=== PATIENT | male | born 1965 | race Two or more races ===

== ENCOUNTER 2017-06-25 10:10 | Inpatient (IN) | payer OTHER ==
[2017-06-25 10:55] VITALS: BMI 25.8
--- NOTE | 2017-06-25 13:56 | HP ---
COWS - Scale Resting Pulse: 1= [place] 81-100 Sweatin=Flushed/Facial Moisture Restless Observation: 3= Extraneous Movement Pupil Size: 2= Moderately Dilated Bone or Joint Aches: 2= Severe Diffuse Aches Runny Nose/ Eye Tearin= Runny Nose/Eyes GI Upset > 30mins: 3= Vomiting/Diarrhea Tremor Observation: 2= Slight Tremor Visible Yawning Observation: 2= >3x During Session Anxiety or Irritability: 2=Irritable/Anxious Goose Flesh Skin: 0=Smooth Skin COWS Score: 21 CIWA Score - CIWA Score Nausea/Vomitin Muscle Tremors: 3 Anxiety: 3 Agitation: 3 Paroxysmal Sweats: 2 Orientation: 0-Oriented Tacttile Disturbances: 2-Mild Itch/Numbness/Burn Auditory Disturbances: 2-Mild Harshness/Frighten Visual Disturbances: 1-Very Mild Sensitivity Headache: 2-Mild CIWA-Ar Total Score: 21 Admission ROS BHS - HPI Chief Complaint: i need help to stop using heroin,alcohol and cocaine Allergies/Adverse Reactions: Allergies Allergy/AdvReac Type Severity Reaction Status Date / Time No Known Allergies Allergy Verified 06/25/17 10:54 History of Present Illness: this 51 years old male with heroin,alcohol and cocaine dependence seeking detox, last treatment in 12/26 did not recall the facility no seizure no significant period of sobriety nicotine dependence - Ebola screening Have you traveled outside of the country in the last 21 days: No (N) Have you had contact with anyone from an Ebola affected area: No Have you been sick,other than usual withdrawal symptoms: No Do you have a fever: No - Review of Systems Constitutional: Chills, Diaphoresis, Loss of Appetite, Night Sweats, Changes in sleep EENT: reports: Tearing, Nose Congestion Respiratory: reports: No Symptoms reported Cardiac: reports: No Symptoms Reported GI: reports: Diarrhea, Nausea, Vomiting, Abdominal cramping : reports: No Symptoms Reported Musculoskeletal: reports: Back Pain, Muscle Pain Integumentary: reports: Dryness Neuro: reports: Headache, Tremors Endocrine: reports: No Symptoms Reported Hematology: reports: No Symptoms Reported Psychiatric: reports: Anxious, Depressed Other Systems: Reviewed and Negative Patient History - Patient Medical History Hx Anemia: No Hx Asthma: No Hx Chronic Obstructive Pulmonary Disease (COPD): No Hx Cancer: Yes (hogkins lymphoma ) Hx Cardiac Disorders: No Hx Congestive Heart Failure: No Hx Hypertension: Yes Hx Hypercholesterolemia: No Hx Pacemaker: No HX Cerebrovascular Accident: No Hx Seizures: No Hx Dementia: No Hx Diabetes: No Hx Gastrointestinal Disorders: No Hx Liver Disease: No Hx Genitourinary Disorders: No Hx Sexually Transmitted Disorders: No Hx Renal Disease (ESRD): No Hx Thyroid Disease: No Hx Human Immunodeficiency Virus (HIV): No (neg 6 m ago ) Hx Hepatitis C: Yes Hx Depression: Yes Hx Suicide Attempt: No Hx Bipolar Disorder: Yes Hx Schizophrenia: No Other Medical History: hisatory of hodgkin's lymphoma - Patient Surgical History Past Surgical History: No Hx Neurologic Surgery: No Hx Cataract Extraction: No Hx Cardiac Surgery: No Hx Lung Surgery: No Hx Breast Surgery: No Hx Breast Biopsy: No Hx Abdominal Surgery: No Hx Appendectomy: No Hx Cholecystectomy: No Hx Genitourinary Surgery: No Hx Section: No Hx Orthopedic Surgery: No Anesthesia Reaction: No - PPD History Previous Implant?: Yes Documented Results: Negative w/o proof Implanted On Prior R Admission?: No PPD to be Administered?: Yes - Smoking Cessation Smoking history: Current every day smoker Have you smoked in the past 12 months: Yes Aproximately how many cigarettes per day: 10 Cigars Per Day: 0 Hx Chewing Tobacco Use: No Initiated information on smoking cessation: Yes 'Breaking Loose' booklet given: 06/25/17 - Substance & Tx. History Hx Alcohol Use: Yes Hx Substance Use: Yes Substance Use Type: Alcohol, Cocaine, Heroin Hx Substance Use Treatment: Yes (12/26 unknown facility) - Substances Abused Heroin Route: Injection Frequency: Daily Amount used: 10 bags Age of first use: 17 Date of Last Use: 06/24/17 Cocaine Route: Injection Frequency: Daily Amount used: $100 Age of first use: 17 Date of Last Use: 06/23/17 Alcohol-beer Route: Oral Frequency: Daily Amount used: 2-3 6 pks Age of first use: 17 Date of Last Use: 06/24/17 Family Disease History - Family Disease History Family History: Denies Admission Physical Exam BHS - Vital Signs Vital Signs: Vital Signs - 24 hr 06/25/17 10:45 Temperature 97.1 F L Pulse Rate 87 Respiratory 18 Rate Blood Pressure 141/92 - Physical General Appearance: Yes: Moderate Distress, Tremorous, Irritable HEENTM: Yes: Normal ENT Inspection, KELLEE, Pharynx Normal Respiratory: Yes: Lungs Clear, Normal Breath Sounds, No Respiratory Distress Neck: Yes: Supple Breast: Yes: Within Normal Limits Cardiology: Yes: Within Normal Limits, Regular Rhythm, Regular Rate, S1, S2 Abdominal: Yes: Within Normal Limits, Normal Bowel Sounds, Non Tender, Soft Genitourinary: Yes: Within Normal Limits Back: Yes: Muscle Spasm Musculoskeletal: Yes: full range of Motion, Back pain, Joint Stiffness, Muscle Pain Extremities: Yes: Within Normal Limits, Normal Range of Motion, Tremors Neurological: Yes: chef assistant II-XII NML intact, Alert, Motor Strength 5/5 Integumentary: Yes: Dry Lymphatic: Yes: Within Normal Limits - Diagnostic (1) Opioid dependence with withdrawal Current Visit: Yes Status: Acute (2) Alcohol dependence with uncomplicated withdrawal Current Visit: Yes Status: Acute (3) Cocaine dependence Current Visit: Yes Status: Acute (4) Nicotine dependence Current Visit: Yes Status: Acute (5) Bipolar disorder Current Visit: Yes Status: Acute (6) Hepatitis C Current Visit: Yes Status: Acute (7) History of Hodgkin's lymphoma Current Visit: Yes Status: Acute Cleared for Admission [facility] - Detox or Rehab [facility] Level of Care: Medically Managed Detox Regimen/Protocol: Methadone/Librium S Breath Alcohol Content Breath Alcohol Content: 0 Urine Drug Screen - Results Drug Screen Negative: No Urine Drug Screen Results: ERICA-Cocaine, OPI-Opiates, BZO-Benzodiazepines, MTD- Methadone
[2017-06-25] MEDS ORDERED: chlordiazePOXIDE HCL 25 MG CAPSULE PO ONE (13:59)
[2017-06-25] MEDS ORDERED: hydrOXYzine PAMOATE 25 MG CAPSULE (FP) PO PRN (14:09)
[2017-06-25] MEDS ORDERED: MENTHOL/PHENOL 1 EACH UD MM PRN (14:09)
[2017-06-25] MEDS ORDERED: MAGNESIUM HYDROX 2400MG/30ML ORAL SUSPENSION 30 ML CUP PO PRN (14:09)
[2017-06-25] MEDS ORDERED: chlordiazePOXIDE HCL 25 MG CAPSULE PO PRN (14:09)
[2017-06-25] MEDS ORDERED: IBUPROFEN 400 MG TABLET (FP) PO PRN (14:09)
[2017-06-25] MEDS ORDERED: MAG HYDROX/AL HYDROX/SIMETH 30 ML UNIT-DOSE CUP PO PRN (14:09)
[2017-06-25] MEDS ORDERED: LOPERAMIDE HCL 2 MG CAPSULE PO PRN (14:09)
[2017-06-25] MEDS ORDERED: guaiFENesin/D-METHORPHAN HB 10 ML UNIT-DOSE CUPS PO PRN (14:09)
[2017-06-25] MEDS ORDERED: P-EPHED 60MG/TRIPROLIDI 2.5MG TABLET PO PRN (14:09)
[2017-06-25] MEDS ORDERED: MAGNESIUM CITRATE 300 ML BOTTLE PO PRN (14:09)
[2017-06-25] MEDS ORDERED: ACETAMINOPHEN 325 MG TABLET (FP) PO PRN (14:09)
[2017-06-25] MEDS ORDERED: METHADONE HCL 10 MG TABLET (FOR DETOX USE ONLY) PO ONE ×2 (15:01→23:00)
[2017-06-25] MEDS: NICOTINE 21 MG/24 HOURS TOPICAL PATCH TD SCH (15:15)
[2017-06-25 16:45] LABS: URINE APPEARANCE SLCLOUDY; URINE BILIRUBIN NEGATIVE (NEGATIVE); URINE BLOOD NEGATIVE (NEGATIVE); URINE COLOR DKYELLOW; URINE GLUCOSE (UA) NEGATIVE (NEGATIVE); URINE KETONE NEGATIVE (NEGATIVE); URINE LEUK ESTERASE NEGATIVE (NEGATIVE); URINE NITRITE NEGATIVE (NEGATIVE); URINE PROTEIN NEGATIVE (NEGATIVE); URINE UROBILINOGEN 4.0 E.U/dl mg/dL (0.2-1.0)
[2017-06-25] MEDS: chlordiazePOXIDE HCL 25 MG CAPSULE PO SCH ×2 (18:12→22:33)
[2017-06-25] MEDS: THIAMINE HCL 100 MG TABLET (FP) PO SCH (22:33)
[2017-06-26] MEDS: chlordiazePOXIDE HCL 25 MG CAPSULE PO SCH ×3 (06:00→19:11)
[2017-06-26] MEDS ORDERED: METHADONE HCL 10 MG TABLET (FOR DETOX USE ONLY) PO SCH (10:00)
[2017-06-26 10:41] LABS: HEMATOCRIT 40.8 % (35.4-49); HEMOGLOBIN 13.1 GM/dL (11.7-16.9); MCH 28.3 pg (25.7-33.7); MCHC 32.1 g/dl (32.0-35.9); MEAN PLT VOLUME 11.7 fl (7.5-11.1); PLATELET COUNT 163 K/MM3 (134-434); RBC 4.63 M/mm3 (4.00-5.60); RDW 14.2 % (11.9-15.9); WHITE BLOOD COUNT 5.6 K/mm3 (4.0-10.0)
[2017-06-26] MEDS: PRENATAL VITAMINS W/ FOLIC ACID TABLET (FP) PO SCH (10:50)
[2017-06-26] MEDS: NICOTINE 21 MG/24 HOURS TOPICAL PATCH TD SCH (10:53)
[2017-06-26 11:04] LABS: ALBUMIN 3.6 g/dl (3.4-5.0); ANION GAP 10 (8-16); BILIRUBIN,TOTAL 0.6 mg/dL (0.2-1.0); BLOOD UREA NITROGEN 21 mg/dL (7-18); CALCIUM 9.2 mg/dL (8.5-10.1); CHLORIDE 105 mmol/L (98-107); CO2 25 mmol/L (21-32); CREATININE 1.1 mg/dL (0.7-1.3); GLUCOSE,RANDOM 128 mg/dL (74-106); POTASSIUM 4.9 mmol/L (3.5-5.1); SGOT/AST 45 U/L (15-37); SGPT/ALT 50 U/L (12-78); SODIUM 140 mmol/L (136-145); TOT PROT 7.5 g/dl (6.4-8.2)
[2017-06-26 11:05] LABS: ALK PHOS 91 U/L (45-117)
--- NOTE | 2017-06-26 11:25 | PN ---
[facility] CIWA - CIWA Score Nausea/Vomitin Muscle Tremors: 3 Anxiety: 3 Agitation: 2 Paroxysmal Sweats: 1-Minimal Palms Moist Orientation: 0-Oriented Tacttile Disturbances: 2-Mild Itch/Numbness/Burn Auditory Disturbances: 1-Very Mild Visual Disturbances: 0-None Headache: 2-Mild CIWA-Ar Total Score: 17 BHS COWS - Scale Resting Pulse: 0= [place] 80 or Below Sweatin= Chills/Flushing Restless Observation: 3= Extraneous Movement Pupil Size: 1= Pupils >than Normal Bone or Joint Aches: 2= Severe Diffuse Aches Runny Nose/ Eye Tearin= Runny Nose/Eyes GI Upset > 30mins: 2= Nausea/Diarrhea Tremor Observation of Outstretched Hands: 2= Slight Tremor Visible Yawning Observation: 1= 1-2x During Session Anxiety or Irritability: 2=Irritable/Anxious Goose Flesh Skin: 0=Smooth Skin COWS Score: 16 S Progress Note (SOAP) Subjective: alert,irritable,anxious,interrupted sleep,tremor,pain in the body and back Objective: 06/26/17 11:22 Vital Signs Temperature 98.1 F 06/26/17 09:56 Pulse Rate 77 06/26/17 09:56 Respiratory Rate 20 06/26/17 09:56 Blood Pressure 158/97 06/26/17 09:56 O2 Sat by Pulse Oximetry (%) ekg nsr,normal ecg 06/26/17 11:23 Laboratory Last Values WBC 5.6 K/mm3 (4.0-10.0) 06/26/17 08:00 RBC 4.63 M/mm3 (4.00-5.60) 06/26/17 08:00 Hgb 13.1 GM/dL (11.7-16.9) 06/26/17 08:00 Hct 40.8 % (35.4-49) 06/26/17 08:00 MCV 88.0 fl (80-96) 06/26/17 08:00 MCH 28.3 pg (25.7-33.7) 06/26/17 08:00 MCHC 32.1 g/dl (32.0-35.9) 06/26/17 08:00 RDW 14.2 % (11.9-15.9) 06/26/17 08:00 Plt Count 163 K/MM3 (134-434) 06/26/17 08:00 MPV 11.7 fl (7.5-11.1) H 06/26/17 08:00 Sodium 140 mmol/L (136-145) 06/26/17 08:00 Potassium 4.9 mmol/L (3.5-5.1) 06/26/17 08:00 Chloride 105 mmol/L (98-107) 06/26/17 08:00 Carbon Dioxide 25 mmol/L (21-32) 06/26/17 08:00 Anion Gap 10 (8-16) 06/26/17 08:00 BUN 21 mg/dL (7-18) H 06/26/17 08:00 Creatinine 1.1 mg/dL (0.7-1.3) 06/26/17 08:00 Creat Clearance w eGFR > 60 (>60) 06/26/17 08:00 Random Glucose 128 mg/dL (74-106) H 06/26/17 08:00 Calcium 9.2 mg/dL (8.5-10.1) 06/26/17 08:00 Total Bilirubin 0.6 mg/dL (0.2-1.0) 06/26/17 08:00 AST 45 U/L (15-37) H 06/26/17 08:00 ALT 50 U/L (12-78) 06/26/17 08:00 Alkaline Phosphatase 91 U/L (45-117) 06/26/17 08:00 Total Protein 7.5 g/dl (6.4-8.2) 06/26/17 08:00 Albumin 3.6 g/dl (3.4-5.0) 06/26/17 08:00 Urine Color Dkyellow 06/25/17 15:00 Urine Appearance Slcloudy 06/25/17 15:00 Urine pH 7.0 (5.0-8.0) 06/25/17 15:00 Ur Specific [place] 1.026 (1.001-1.035) 06/25/17 15:00 Urine Protein Negative (NEGATIVE) 06/25/17 15:00 Urine Glucose (UA) Negative (NEGATIVE) 06/25/17 15:00 Urine Ketones Negative (NEGATIVE) 06/25/17 15:00 Urine Blood Negative (NEGATIVE) 06/25/17 15:00 Urine Nitrite Negative (NEGATIVE) 06/25/17 15:00 Urine Bilirubin Negative (NEGATIVE) 06/25/17 15:00 Urine Urobilinogen 4.0 e.u/dl mg/dL (0.2-1.0) 06/25/17 15:00 Ur Leukocyte Esterase Negative (NEGATIVE) 06/25/17 15:00 HIV 1&2 Antibody Screen Negative 06/25/17 12:00 HIV P24 Antigen Negative 06/25/17 12:00 Assessment: 06/26/17 11:23 withdrawal symptom Plan: continue detox,initial glucose is 127,bgm monitoring daily
[2017-06-26] MEDS ORDERED: PNEUMOC 13-VAL CONJ-DIP CRM/PF 0.5 ML DISP.SYRIN IM ONE (12:00)
[2017-06-26] MEDS ORDERED: FLU VACCINE QUAD 60 MCG/0.5 ML (MDV 17-18) IM ONE ×2 (12:00→18:15)
[2017-06-26] MEDS ORDERED: PNEUMOCOCCAL 23 VACCINE 0.5 ML VIAL IM ONE ×2 (12:15→18:15)
--- NOTE | 2017-06-26 13:05 | CONSULT ---
[facility] Psychiatric Consult - Data Date of interview: 06/26/17 Admission source: [facility] Identifying data: Readmission to [facility] for this 51 y/o male seeking detox treatment on for alcohol,heroin and cocaine dependence.Patient is single,father of an " unknown " number of children, homeless,unemployed and supported on food stamps. Substance Abuse History: Confirmed by patient in this interview.See current [facility] report for details : Smoking history: Current every day smoker. Have you smoked in the past 12 months: Yes. Aproximately how many cigarettes per day: 10. Cigars Per Day: 0. Hx Chewing Tobacco Use: No. Initiated information on smoking cessation: Yes. 'Breaking Loose' booklet given: 06/25/17. - Substance & Tx. History. Hx Alcohol Use: Yes. Hx Substance Use: Yes. Substance Use Type : Alcohol, Cocaine, Heroin. Hx Substance Use Treatment: Yes (12/26 unknown facility). - Substances Abused. Heroin. Route: Injection. Frequency: Daily. Amount used: 10 bags. Age of first use: 17. Date of Last Use: . Cocaine. Route: Injection. Frequency: Daily. Amount used: $100. Age of first use: 17. Date of Last Use: 06/23/17. Alcohol-beer. Route: Oral. Frequency: Daily. Amount used: 2-3 6 pks. Age of first use: 17. Date of Last Use: 06/24/17 Medical History: Cleft lip.Otherwise no medical issues. Psychiatric History: Diagnosed with Bipolar Disorder and previously treated with seroquel + sertraline.Patient admits to a remote history (more than 15 years ago) of psychiatric hospitalization at [facility].Mr Sr states that he " used to " see a private psychiatrist in [facility] for medication management.Non-adherent to OPD care for months.No reported history of suicide attempts. Physical/Sexual Abuse/Trauma History: Patient denies. Additional Comment: Urine Drug Screen Results: ERICA-Cocaine, OPI-Opiates, BZO- Benzodiazepines, MTD-Methadone.Noted. Mental Status Exam - Mental Status Exam Alert and Oriented to: Time, Place, Person Cognitive Function: Good Patient Appearance: Unkempt, Disheveled (tall stature) Mood: Nervous, Anxious, Hopeful Affect: Appropriate, Normal Range Patient Behavior: Fatigued, Cooperative Speech Pattern: Clear, Appropriate Voice Loudness: Normal Thought Process: Goal Oriented Thought Disorder: Not Present Hallucinations: Denies Suicidal Ideation: Denies Homicidal Ideation: Denies Insight/Judgement: Poor Sleep: Well Appetite: Good Muscle strength/Tone: Normal Gait/Station: Normal Psychiatric Findings - Problem List ([place] 1, 2,3) (1) Opioid dependence with withdrawal Current Visit: Yes Status: Acute (2) Alcohol dependence with uncomplicated withdrawal Current Visit: Yes Status: Acute (3) Cocaine dependence Current Visit: Yes Status: Acute (4) Nicotine dependence Current Visit: Yes Status: Acute (5) Substance induced mood disorder Current Visit: Yes Status: Acute - Initial Treatment Plan Initial Treatment Plan: Psychoeducation.Detoxification.Observation.
[2017-06-27] MEDS: chlordiazePOXIDE HCL 25 MG CAPSULE PO SCH ×3 (00:10→11:30)
[2017-06-27] MEDS: THIAMINE HCL 100 MG TABLET (FP) PO SCH ×2 (00:10→23:06)
--- NOTE | 2017-06-27 09:28 | PN ---
[facility] CIWA - CIWA Score Nausea/Vomitin-Mild Nausea/No Vomiting Muscle Tremors: 3 Anxiety: 3 Agitation: 2 Paroxysmal Sweats: 2 Orientation: 0-Oriented Tacttile Disturbances: 0-None Auditory Disturbances: 0-None Visual Disturbances: 0-None Headache: 0-None Present CIWA-Ar Total Score: 11 S COWS - Scale Resting Pulse: 0= [place] 80 or Below Sweatin= Chills/Flushing Restless Observation: 1= Difficult to Sit Still Pupil Size: 0= Normal to Room Light Bone or Joint Aches: 2= Severe Diffuse Aches Runny Nose/ Eye Tearin= Nasal Congestion GI Upset > 30mins: 1= Stomach Cramp Tremor Observation of Outstretched Hands: 2= Slight Tremor Visible Yawning Observation: 1= 1-2x During Session Anxiety or Irritability: 2=Irritable/Anxious Goose Flesh Skin: 0=Smooth Skin COWS Score: 11 [facility] Progress Note (SOAP) Subjective: sweat treamor anxiety general body ache Objective: 06/27/17 09:28 Vital Signs Temperature 95.5 F L 06/27/17 06:00 Pulse Rate 69 06/27/17 06:00 Respiratory Rate 20 06/27/17 06:00 Blood Pressure 182/110 06/27/17 06:00 O2 Sat by Pulse Oximetry (%) Laboratory Last Values WBC 5.6 K/mm3 (4.0-10.0) 06/26/17 08:00 RBC 4.63 M/mm3 (4.00-5.60) 06/26/17 08:00 Hgb 13.1 GM/dL (11.7-16.9) 06/26/17 08:00 Hct 40.8 % (35.4-49) 06/26/17 08:00 MCV 88.0 fl (80-96) 06/26/17 08:00 MCH 28.3 pg (25.7-33.7) 06/26/17 08:00 MCHC 32.1 g/dl (32.0-35.9) 06/26/17 08:00 RDW 14.2 % (11.9-15.9) 06/26/17 08:00 Plt Count 163 K/MM3 (134-434) 06/26/17 08:00 MPV 11.7 fl (7.5-11.1) H 06/26/17 08:00 Sodium 140 mmol/L (136-145) 06/26/17 08:00 Potassium 4.9 mmol/L (3.5-5.1) 06/26/17 08:00 Chloride 105 mmol/L (98-107) 06/26/17 08:00 Carbon Dioxide 25 mmol/L (21-32) 06/26/17 08:00 Anion Gap 10 (8-16) 06/26/17 08:00 BUN 21 mg/dL (7-18) H 06/26/17 08:00 Creatinine 1.1 mg/dL (0.7-1.3) 06/26/17 08:00 Creat Clearance w eGFR > 60 (>60) 06/26/17 08:00 POC Glucometer 92 UNITS (80-120) 06/27/17 05:59 Random Glucose 128 mg/dL (74-106) H 06/26/17 08:00 Calcium 9.2 mg/dL (8.5-10.1) 06/26/17 08:00 Total Bilirubin 0.6 mg/dL (0.2-1.0) 06/26/17 08:00 AST 45 U/L (15-37) H 06/26/17 08:00 ALT 50 U/L (12-78) 06/26/17 08:00 Alkaline Phosphatase 91 U/L (45-117) 06/26/17 08:00 Total Protein 7.5 g/dl (6.4-8.2) 06/26/17 08:00 Albumin 3.6 g/dl (3.4-5.0) 06/26/17 08:00 Urine Color Dkyellow 06/25/17 15:00 Urine Appearance Slcloudy 06/25/17 15:00 Urine pH 7.0 (5.0-8.0) 06/25/17 15:00 Ur Specific [place] 1.026 (1.001-1.035) 06/25/17 15:00 Urine Protein Negative (NEGATIVE) 06/25/17 15:00 Urine Glucose (UA) Negative (NEGATIVE) 06/25/17 15:00 Urine Ketones Negative (NEGATIVE) 06/25/17 15:00 Urine Blood Negative (NEGATIVE) 06/25/17 15:00 Urine Nitrite Negative (NEGATIVE) 06/25/17 15:00 Urine Bilirubin Negative (NEGATIVE) 06/25/17 15:00 Urine Urobilinogen 4.0 e.u/dl mg/dL (0.2-1.0) 06/25/17 15:00 Ur Leukocyte Esterase Negative (NEGATIVE) 06/25/17 15:00 RPR Titer Nonreactive (NONREACTIVE) 06/26/17 08:00 HIV 1&2 Antibody Screen Negative 06/25/17 12:00 HIV P24 Antigen Negative 06/25/17 12:00 lab noted Assessment: 06/27/17 09:28 withdrawal sx Plan: continue detox
[2017-06-27] MEDS ORDERED: cloNIDine HCL 0.1 MG TABLET PO PRN (09:46)
[2017-06-27] MEDS: METHADONE HCL 5 MG TABLET (FOR DETOX USE ONLY) PO SCH (11:29)
[2017-06-27] MEDS: NICOTINE 21 MG/24 HOURS TOPICAL PATCH TD SCH (11:29)
[2017-06-27] MEDS: METHOCARBAMOL 500 MG TABLET PO SCH ×3 (11:30→23:09)
[2017-06-27] MEDS: PRENATAL VITAMINS W/ FOLIC ACID TABLET (FP) PO SCH (11:30)
[2017-06-27] MEDS: chlordiazePOXIDE 5 MG CAPSULE PO SCH ×2 (18:06→23:06)
[2017-06-27] MEDS ORDERED: cloNIDine HCL 0.1 MG TABLET PO ONE (18:23)
--- NOTE | 2017-06-27 18:23 | PN ---
BHS Progress Note Note: bp 170/100,withdrawal symptom,clonidine 0.1 mg po bid, bp monitoring
[2017-06-27] MEDS ORDERED: cloNIDine HCL 0.1 MG TABLET PO SCH (22:00)
[2017-06-28] MEDS ORDERED: cloNIDine HCL 0.1 MG TABLET PO ONE (00:51)
[2017-06-28] MEDS: METHOCARBAMOL 500 MG TABLET PO SCH ×4 (06:48→23:42)
[2017-06-28] MEDS: chlordiazePOXIDE 5 MG CAPSULE PO SCH ×2 (06:48→10:41)
[2017-06-28] MEDS: cloNIDine HCL 0.1 MG TABLET PO SCH ×3 (07:46→23:40)
--- NOTE | 2017-06-28 10:12 | PN ---
BHS Progress Note (SOAP) Subjective: nausea, sweats, interrupted sleep, anxeityk, tremors Objective: 06/28/17 10:11 Vital Signs - 8 hr 06/28/17 06/28/17 06/28/17 03:30 06:17 08:11 Temperature 97.6 F Pulse Rate 50 L 67 Respiratory 18 18 Rate Blood Pressure 173/100 Laboratory Tests 06/25/17 06/25/17 06/26/17 12:00 15:00 08:00 WBC 5.6 RBC 4.63 Hgb 13.1 Hct 40.8 MCV 88.0 MCH 28.3 MCHC 32.1 RDW 14.2 Plt Count 163 MPV 11.7 H Sodium Potassium Chloride Carbon Dioxide Anion Gap BUN Creatinine Creat Clearance w eGFR POC Glucometer Random Glucose Calcium Total Bilirubin AST ALT Alkaline Phosphatase Total Protein Albumin Urine Color Dkyellow Urine Appearance Slcloudy Urine pH 7.0 Ur Specific [place] 1.026 Urine Protein Negative Urine Glucose (UA) Negative Urine Ketones Negative Urine Blood Negative Urine Nitrite Negative Urine Bilirubin Negative Urine Urobilinogen 4.0 e.u/dl Ur Leukocyte Esterase Negative RPR Titer HIV 1&2 Antibody Screen Negative HIV P24 Antigen Negative 06/26/17 06/26/17 06/27/17 08:00 08:00 05:59 WBC RBC Hgb Hct MCV MCH MCHC RDW Plt Count MPV Sodium 140 Potassium 4.9 Chloride 105 Carbon Dioxide 25 Anion Gap 10 BUN 21 H Creatinine 1.1 Creat Clearance w eGFR > 60 POC Glucometer 92 Random Glucose 128 H Calcium 9.2 Total Bilirubin 0.6 AST 45 H ALT 50 Alkaline Phosphatase 91 Total Protein 7.5 Albumin 3.6 Urine Color Urine Appearance Urine pH Ur Specific [place] Urine Protein Urine Glucose (UA) Urine Ketones Urine Blood Urine Nitrite Urine Bilirubin Urine Urobilinogen Ur Leukocyte Esterase RPR Titer Nonreactive HIV 1&2 Antibody Screen HIV P24 Antigen 06/28/17 06:21 WBC RBC Hgb Hct MCV MCH MCHC RDW Plt Count MPV Sodium Potassium Chloride Carbon Dioxide Anion Gap BUN Creatinine Creat Clearance w eGFR POC Glucometer 107 Random Glucose Calcium Total Bilirubin AST ALT Alkaline Phosphatase Total Protein Albumin Urine Color Urine Appearance Urine pH Ur Specific [place] Urine Protein Urine Glucose (UA) Urine Ketones Urine Blood Urine Nitrite Urine Bilirubin Urine Urobilinogen Ur Leukocyte Esterase RPR Titer HIV 1&2 Antibody Screen HIV P24 Antigen Assessment: 06/28/17 10:12 withdrawal sx, hypertension, cont detox, fluids, control bp
[2017-06-28] MEDS: METHADONE HCL 5 MG TABLET (FOR DETOX USE ONLY) PO SCH (10:41)
[2017-06-28] MEDS: NICOTINE 21 MG/24 HOURS TOPICAL PATCH TD SCH (10:42)
[2017-06-28] MEDS: PRENATAL VITAMINS W/ FOLIC ACID TABLET (FP) PO SCH (10:42)
[2017-06-28] MEDS ORDERED: amLODIPine BESYLATE 5 MG TABLET (FP) PO SCH (10:51)
[2017-06-28] MEDS ORDERED: chlordiazePOXIDE HCL 25 MG CAPSULE PO ONE (13:00)
[2017-06-28] MEDS: chlordiazePOXIDE HCL 10 MG CAPSULE PO SCH ×2 (17:39→23:40)
[2017-06-28] MEDS: THIAMINE HCL 100 MG TABLET (FP) PO SCH (23:42)
--- NOTE | 2017-06-29 01:58 | EKG ---
Test Reason : Blood Pressure : / mmHG Vent. Rate : 072 BPM Atrial Rate : 072 BPM P-R Int : 138 ms QRS Dur : 098 ms QT Int : 388 ms P-R-T Axes : -05 058 032 degrees QTc Int : 424 ms NORMAL SINUS RHYTHM NORMAL ECG NO PREVIOUS ECGS AVAILABLE Confirmed by DEXTER PIERCE MD ([id number]) on 06/29/2017 1:57:52 AM Referred By: Confirmed By:DEXTER PIERCE MD
[2017-06-29] MEDS: chlordiazePOXIDE HCL 10 MG CAPSULE PO SCH (06:01)
[2017-06-29] MEDS: cloNIDine HCL 0.1 MG TABLET PO SCH (06:01)
[2017-06-29] MEDS: METHOCARBAMOL 500 MG TABLET PO SCH (06:02)
--- NOTE | 2017-06-29 09:29 | DS ---
[facility] Detox Discharge Summary Admission Date: 06/25/17 - History Present History: Alcohol Dependence, Cocaine Dependence, Opioid Dependence - Physical Exam Results Vital Signs: Vital Signs Temperature 97.2 F L 06/29/17 07:22 Pulse Rate 54 L 06/29/17 07:22 Respiratory Rate 16 06/29/17 07:22 Blood Pressure 145/83 06/29/17 07:22 O2 Sat by Pulse Oximetry (%) - Medication Discharge Medications: Ambulatory Orders Unobtainable [Unobtainable] 09/03/15 - AMA Did Patient Leave Against Medical Advice: Yes (I want to go home)
[2017-06-29] MEDS ORDERED: METHADONE HCL 10 MG TABLET (FOR DETOX USE ONLY) PO SCH (10:00)
[2017-06-29 10:23] VITALS: BP 118/57; PULSE 75; TEMP 96.3
[2017-06-30] MEDS ORDERED: METHADONE HCL 5 MG TABLET (FOR DETOX USE ONLY) PO SCH (06:00)
== END 2017-06-29 09:41 | disposition left against medical advice (07) | DRG 770 ==
LOC: YASAS 10:10 → Y6N 13:48
PROVIDERS: ADMIT Internal Medicine; ATTEND Internal Medicine
PROC: HZ2ZZZZ Detoxification Services for Substance Abuse Treatment (ICD-10-PCS; principal; 2017-06-25)
DX: F11.23 Opioid dependence with withdrawal (principal); F10.230 Alcohol dependence with withdrawal, uncomplicated; F14.20 Cocaine dependence, uncomplicated; F17.210 Nicotine dependence, cigarettes, uncomplicated; F31.9 Bipolar disorder, unspecified; F19.24 Other psychoactive substance dependence with psychoactive substance-induced mood disorder; I10 Essential (primary) hypertension; B18.2 Chronic viral hepatitis C; Z85.71 Personal history of Hodgkin lymphoma; Z59.0 Homelessness
CPT/HCPCS: 36415; 80053; 81003; 85027; 86593; 87389; 90688; 90732; 93005; 93010; G0008; G0009

== ENCOUNTER 2017-12-02 22:51 | Emergency (ER) | payer OTHER ==
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
[2017-12-02] MEDS ORDERED: hydrALAZINE HCL 20 MG/ML VIAL IVPUSH ONE (23:59)
[2017-12-03 00:03] VITALS: BMI 24.3
[2017-12-03] MEDS ORDERED: hydrALAZINE HCL 20 MG/ML VIAL ONE ×3 (00:16→04:48)
[2017-12-03 00:21] LABS: BASO % 0.8 % (0-2.0); EOS % 2.7 % (0-4.5); HEMATOCRIT 42.3 % (35.4-49); HEMOGLOBIN 14.1 GM/dL (11.7-16.9); LYMPH % 27.5 % (8-40); MCH 29.1 pg (25.7-33.7); MCHC 33.3 g/dl (32.0-35.9); MEAN CELL VOLUME 87.4 fl (80-96); MEAN PLT VOLUME 10.6 fl (7.5-11.1); MONO % 7.6 % (3.8-10.2); NEUT % 61.4 % (42.8-82.8); PLATELET COUNT 175 K/MM3 (134-434); RBC 4.84 M/mm3 (4.00-5.60); WHITE BLOOD COUNT 5.1 K/mm3 (4.0-10.0)
[2017-12-03] MEDS ORDERED: FLUORESCEIN NA 1 EA STRIP OS ONE (00:38)
[2017-12-03 00:47] LABS: SALICYLATE < 1.700 mg/dL
[2017-12-03 00:51] LABS: ALBUMIN 3.8 g/dl (3.4-5.0); ANION GAP 10 (8-16); BILIRUBIN,TOTAL 0.6 mg/dL (0.2-1.0); BLOOD UREA NITROGEN 13 mg/dL (7-18); CALCIUM 9.2 mg/dL (8.5-10.1); CHLORIDE 103 mmol/L (98-107); CO2 26 mmol/L (21-32); CREATININE 0.9 mg/dL (0.7-1.3); GLUCOSE,RANDOM 83 mg/dL (74-106); MAGNESIUM 2.1 mg/dL (1.8-2.4); POTASSIUM 3.8 mmol/L (3.5-5.1); SGOT/AST 39 U/L (15-37); SGPT/ALT 35 U/L (12-78); SODIUM 139 mmol/L (136-145); TOT PROT 8.3 g/dl (6.4-8.2)
[2017-12-03 00:54] LABS: ALK PHOS 100 U/L (45-117)
[2017-12-03 01:06] LABS: ACETAMINOPHEN <2.0 ug/mL
[2017-12-03] MEDS ORDERED: TETRACAINE 0.5% HCL 0.6ML DROPPER.BOTTLE OS ONE (01:15)
[2017-12-03] MEDS ORDERED: TETRACAINE 0.5% OPHTH SOLN 2 ML BOTTLE ONE (01:22)
[2017-12-03] MEDS ORDERED: hydrALAZINE HCL 20 MG/ML VIAL IVPUSH ONE ×2 (02:24→04:47)
--- NOTE | 2017-12-03 06:01 | PDOC ---
*Physical Exam - Vital Signs Last Vital Signs Temp Pulse Resp BP Pulse Ox 97.7 F 71 18 157/88 97 12/02/17 23:45 12/03/17 00:01 12/03/17 00:01 12/03/17 05:19 12/03/17 00:01 ED Treatment Course - LABORATORY CBC & Chemistry Diagram: 12/03/17 00:07 12/03/17 00:07 - ADDITIONAL ORDERS Additional order review: Laboratory Results 12/03/17 12/03/17 00:07 00:07 Sodium 139 Potassium 3.8 D Chloride 103 Carbon Dioxide 26 Anion Gap 10 BUN 13 D Creatinine 0.9 Creat Clearance w eGFR > 60 Random Glucose 83 D Calcium 9.2 Magnesium 2.1 Total Bilirubin 0.6 AST 39 H ALT 35 D Alkaline Phosphatase 100 Creatine Kinase 175 Creatine Kinase Index 2.2 CK-MB (CK-2) 3.990 H Troponin I < 0.02 Total Protein 8.3 H Albumin 3.8 Salicylates < 1.700 Acetaminophen <2.0 Alcohol, Quantitative < 5.0 12/03/17 00:07 RBC 4.84 MCV 87.4 MCHC 33.3 RDW 14.0 MPV 10.6 Neutrophils % 61.4 Lymphocytes % 27.5 Monocytes % 7.6 Eosinophils % 2.7 Basophils % 0.8 - Medications Given in the ED: ED Medications Discontinued Medications Generic Name Dose Route Start Last Admin Trade Name Darielq PRN Reason Stop Dose Admin Fluorescein Sodium 1 ea 12/03/17 00:38 12/03/17 01:52 Fluorets - OS 12/03/17 00:39 Not Given ONCE ONE Hydralazine HCl 10 mg 12/02/17 23:59 12/03/17 00:10 Apresoline Injection - IVPUSH 12/03/17 00:00 10 mg ONCE ONE Administration Hydralazine HCl 10 mg 12/03/17 02:24 12/03/17 02:31 Apresoline Injection - IVPUSH 12/03/17 02:25 10 mg ONCE ONE Administration Hydralazine HCl 10 mg 12/03/17 04:47 12/03/17 04:48 Apresoline Injection - IVPUSH 12/03/17 04:48 10 mg ONCE ONE Administration Lorazepam 1 mg 12/03/17 00:44 12/03/17 00:50 Ativan Injection - IVPUSH 12/03/17 00:45 1 mg ONCE ONE Administration Tetracaine HCl 1 drop 12/03/17 01:15 12/03/17 01:34 Tetravisc 0.5% Eye Drops - OS 12/03/17 01:16 1 drop ONCE ONE Administration Medical Decision Making - Medical Decision Making 12/03/17 06:06 Pt wants to go to [facility] for Drug and alcohol detox. BP improved. Attempted to call for pt acceptance. No response at this time. *DC/Admit/Observation/Transfer Diagnosis at time of Disposition: Cocaine dependence, Opiate addiction, Pain, eye, left, Uncontrolled hypertension - Discharge Dispostion Condition at time of disposition: Stable - Referrals Referrals: [facility], [facility] [Other] (An appointment was made for you at 9:30a) Stan Jacobsen MD [Staff Physician] - - Patient Instructions - Post Discharge Activity
[2017-12-03 06:11] LABS: URINE APPEARANCE CLEAR; URINE BILIRUBIN NEGATIVE (<2.0 mg/dL); URINE COLOR YELLOW; URINE GLUCOSE (UA) NEGATIVE (NEGATIVE); URINE KETONE TRACE (NEGATIVE); URINE LEUK ESTERASE NEGATIVE (NEGATIVE); URINE NITRITE NEGATIVE (NEGATIVE); URINE PROTEIN NEGATIVE (NEGATIVE)
[2017-12-03 06:20] LABS: METHADONE, UR NEGATIVE ng/ml (CUTOFF=300); PHENCYCLIDINE,URINE NEGATIVE ng/ml (CUTOFF=25); URINE AMPHETAMINES NEGATIVE ng/ml (CUTOFF=500); URINE BARBITURATES NEGATIVE ng/ml (CUTOFF=200); URINE BENZODIAZEPINES NEGATIVE ng/ml (CUTOFF=200)
[2017-12-03 06:21] LABS: COCAINE, UR POSITIVE ng/ml (CUTOFF=300)
[2017-12-03 06:22] LABS: OPIATES, URI POSITIVE ng/ml (CUTOFF=300)
--- NOTE | 2017-12-03 08:51 | PDOC ---
*Physical Exam - Vital Signs Last Vital Signs Temp Pulse Resp BP Pulse Ox 98 F 90 18 151/96 98 12/03/17 07:05 12/03/17 07:05 12/03/17 07:05 12/03/17 07:05 12/03/17 07:05 - Physical Exam Comments: 12/03/17 08:47 "GENERAL: Awake, alert, and fully oriented, in no acute distress. HEAD: No signs of trauma EYES: PERRLA, EOMI, sclera anicteric, conjunctiva clear ENT: Auricles normal inspection, hearing grossly normal, nares patent, oropharynx clear without exudates. Moist mucosa NECK: Nontender, no stepoffs, Normal ROM, supple, no lymphadenopathy, JVD, or masses LUNGS: Breath sounds equal, clear to auscultation bilaterally. No wheezes, and no crackles HEART: Regular rate and rhythm, normal S1 and S2, no murmurs, rubs or gallops ABDOMEN: Soft, nontender, normoactive bowel sounds. No guarding, no rebound. No masses EXTREMITIES: Normal range of motion, no edema. No clubbing or cyanosis. No cords, erythema, or tenderness NEUROLOGICAL: Cranial nerves II through XII intact. 5/5 strength and sensation in all extremities, Normal speech, normal gait, normal cerebellar function SKIN: Warm, Dry, normal turgor, no rashes or lesions noted. " ED Treatment Course - LABORATORY CBC & Chemistry Diagram: 12/03/17 00:07 12/03/17 00:07 - ADDITIONAL ORDERS Additional order review: Laboratory Results 12/03/17 12/03/17 12/03/17 05:57 05:57 00:07 Sodium Potassium Chloride Carbon Dioxide Anion Gap BUN Creatinine Creat Clearance w eGFR Random Glucose Calcium Magnesium Total Bilirubin AST ALT Alkaline Phosphatase Creatine Kinase Creatine Kinase Index CK-MB (CK-2) Troponin I Total Protein Albumin Urine Color Yellow Urine Appearance Clear Urine pH 8.0 Ur Specific [place] 1.017 Urine Protein Negative Urine Glucose (UA) Negative Urine Ketones Trace H Urine Blood Negative Urine Nitrite Negative Urine Bilirubin Negative Urine Urobilinogen 2.0 Ur Leukocyte Esterase Negative Salicylates < 1.700 Opiates Screen Positive Methadone Screen Negative Acetaminophen <2.0 Barbiturate Screen Negative Phencyclidine Screen Negative Ur Amphetamines Screen Negative MDMA (Ecstasy) Screen Negative Benzodiazepines Screen Negative Cocaine Screen Positive U Marijuana (THC) Screen Positive Alcohol, Quantitative < 5.0 12/03/17 00:07 Sodium 139 Potassium 3.8 D Chloride 103 Carbon Dioxide 26 Anion Gap 10 BUN 13 D Creatinine 0.9 Creat Clearance w eGFR > 60 Random Glucose 83 D Calcium 9.2 Magnesium 2.1 Total Bilirubin 0.6 AST 39 H ALT 35 D Alkaline Phosphatase 100 Creatine Kinase 175 Creatine Kinase Index 2.2 CK-MB (CK-2) 3.990 H Troponin I < 0.02 Total Protein 8.3 H Albumin 3.8 Urine Color Urine Appearance Urine pH Ur Specific [place] Urine Protein Urine Glucose (UA) Urine Ketones Urine Blood Urine Nitrite Urine Bilirubin Urine Urobilinogen Ur Leukocyte Esterase Salicylates Opiates Screen Methadone Screen Acetaminophen Barbiturate Screen Phencyclidine Screen Ur Amphetamines Screen MDMA (Ecstasy) Screen Benzodiazepines Screen Cocaine Screen U Marijuana (THC) Screen Alcohol, Quantitative 12/03/17 00:07 RBC 4.84 MCV 87.4 MCHC 33.3 RDW 14.0 MPV 10.6 Neutrophils % 61.4 Lymphocytes % 27.5 Monocytes % 7.6 Eosinophils % 2.7 Basophils % 0.8 - Medications Given in the ED: ED Medications Discontinued Medications Generic Name Dose Route Start Last Admin Trade Name Freq PRN Reason Stop Dose Admin Fluorescein Sodium 1 ea 12/03/17 00:38 12/03/17 01:52 Fluorets - OS 12/03/17 00:39 Not Given ONCE ONE Hydralazine HCl 10 mg 12/02/17 23:59 12/03/17 00:10 Apresoline Injection - IVPUSH 12/03/17 00:00 10 mg ONCE ONE Administration Hydralazine HCl 10 mg 12/03/17 02:24 12/03/17 02:31 Apresoline Injection - IVPUSH 12/03/17 02:25 10 mg ONCE ONE Administration Hydralazine HCl 10 mg 12/03/17 04:47 12/03/17 04:48 Apresoline Injection - IVPUSH 12/03/17 04:48 10 mg ONCE ONE Administration Lorazepam 1 mg 12/03/17 00:44 12/03/17 00:50 Ativan Injection - IVPUSH 12/03/17 00:45 1 mg ONCE ONE Administration Tetracaine HCl 1 drop 12/03/17 01:15 12/03/17 01:34 Tetravisc 0.5% Eye Drops - OS 12/03/17 01:16 1 drop ONCE ONE Administration Medical Decision Making - Medical Decision Making 12/03/17 08:47 51 M with h/o PSA presenting to [facility] for detox, sent to ED for HTN. Pt cleared last night but unable to be transferred to [facility] because no one picked up the phone. - Spoke with [facility], pt accepted by Dr. Jacobsen Pt is well appearing, with normal vitals. Clinically stable for DC at this time. I discussed the physical exam findings, ancillary test results and final diagnoses with the patient. I answered all of the patient's questions. The patient was satisfied with the care received and felt comfortable with the discharge plan and treatment plan. The patient agrees to follow up with the primary care physician within 24-72 hours. *DC/Admit/Observation/Transfer Diagnosis at time of Disposition: Cocaine dependence, Opiate addiction, Pain, eye, left, Uncontrolled hypertension - Discharge Dispostion Condition at time of disposition: Stable - Referrals Referrals: Sarath, [facility] [Other] (An appointment was made for you at 9:30a) Stan Jacobsen MD [Staff Physician] - - Patient Instructions Printed Discharge Instructions: DI for High Blood Pressure Additional Instructions: Your blood pressure was very high today, possibly due to drug use. Follow up with your primary doctor to have your blood pressure re-checked. Uncontrolled blood pressure can lead to severe heart or kidney disease, disability, or even . - Post Discharge Activity - Attestations Physician Attestion: 12/03/17 08:51 I, Dr. Vinay Adler MD, attest that this document has been prepared under my direction and personally reviewed by me in its entirety. I further attest, that it accurately reflects all work, treatment, procedures and medical decision -making performed by me.
[2017-12-03 09:28] VITALS: BP 145/91; PULSE 87; TEMP 98.1
== END 2017-12-03 09:27 | disposition home or self-care (01) ==
LOC: JER 22:51
PROC: 3E033GC Introduction of Other Therapeutic Substance into Peripheral Vein, Percutaneous Approach (ICD-10-PCS; principal; 2017-12-02)
PROC: 3E033NZ Introduction of Analgesics, Hypnotics, Sedatives into Peripheral Vein, Percutaneous Approach (ICD-10-PCS; 2017-12-02)
PROC: 3E033GC Introduction of Other Therapeutic Substance into Peripheral Vein, Percutaneous Approach (ICD-10-PCS; 2017-12-02)
PROC: 3E033GC Introduction of Other Therapeutic Substance into Peripheral Vein, Percutaneous Approach (ICD-10-PCS; 2017-12-02)
DX: I10 Essential (primary) hypertension (principal); F17.210 Nicotine dependence, cigarettes, uncomplicated; F10.10 Alcohol abuse, uncomplicated; F11.20 Opioid dependence, uncomplicated; F14.20 Cocaine dependence, uncomplicated; Z59.0 Homelessness; Y90.0 Blood alcohol level of less than 20 mg/100 ml
CPT/HCPCS: 36415; 70450-TC; 70486-TC; 71045-TC-FY; 71250-TC; 80053; 80307; 81003; 82550; 82553; 83735; 84484; 85025; 99283-25

== ENCOUNTER 2017-12-03 09:59 | Inpatient (IN) | payer OTHER ==
[2017-12-03 10:59] VITALS: BMI 24.2
--- NOTE | 2017-12-03 11:18 | HP ---
COWS - Scale Resting Pulse: 1= MN 81-100 Sweatin= Chills/Flushing Restless Observation: 1= Difficult to Sit Still Pupil Size: 1= Pupils >than Normal Bone or Joint Aches: 1= Mild Discomfort Runny Nose/ Eye Tearin= Runny Nose/Eyes GI Upset > 30mins: 2= Nausea/Diarrhea Tremor Observation: 1= Tremor [place], Not Seen Yawning Observation: 1= 1-2x During Session Anxiety or Irritability: 2=Irritable/Anxious Goose Flesh Skin: 0=Smooth Skin COWS Score: 13 CIWA Score - CIWA Score Nausea/Vomitin Muscle Tremors: 2 Anxiety: 2 Agitation: 3 Paroxysmal Sweats: 1-Minimal Palms Moist Orientation: 1-Uncertain about Date Tacttile Disturbances: 0-None Auditory Disturbances: 0-None Visual Disturbances: 0-None Headache: 1-Very Mild CIWA-Ar Total Score: 12 Admission [facility] Chief Complaint: Heroin/ETOH withdrawal symptoms. Allergies/Adverse Reactions: Allergies Allergy/AdvReac Type Severity Reaction Status Date / Time No Known Allergies Allergy Verified 12/03/17 10:04 History of Present Illness: Patient presents with ETOH withdrawal symptoms. Exam Limitations: Intoxication, Altered Mental Status - Ebola screening Have you traveled outside of the country in the last 21 days: No Have you had contact with anyone from an Ebola affected area: No Have you been sick,other than usual withdrawal symptoms: No Do you have a fever: No - Review of Systems Constitutional: Chills, Night Sweats, Changes in sleep, Unexplained wgt Loss EENT: reports: Tearing, Nose Congestion Respiratory: reports: No Symptoms reported Cardiac: reports: No Symptoms Reported GI: reports: Diarrhea, Nausea, Poor Fluid Intake, Abdominal cramping : reports: No Symptoms Reported Musculoskeletal: reports: Back Pain, Muscle Pain Integumentary: reports: Sweating Neuro: reports: Tremors Endocrine: reports: Unexplained Weight Loss Hematology: reports: Anemia (dddd) Psychiatric: reports: Agitated, Anxious, Depressed Patient History - Patient Medical History Hx Anemia: No Hx Asthma: No Hx Chronic Obstructive Pulmonary Disease (COPD): No Hx Cancer: Yes (hogkins lymphoma ) Hx Cardiac Disorders: No Hx Congestive Heart Failure: No Hx Hypertension: Yes (noncompliant with medication) Hx Hypercholesterolemia: No Hx Pacemaker: No HX Cerebrovascular Accident: No Hx Seizures: No Hx Dementia: No Hx Diabetes: No Hx Gastrointestinal Disorders: No Hx Liver Disease: No Hx Genitourinary Disorders: No Hx Sexually Transmitted Disorders: No Hx Renal Disease (ESRD): No Hx Thyroid Disease: No Hx Human Immunodeficiency Virus (HIV): No (neg 6 m ago ) Hx Hepatitis C: Yes Hx Depression: Yes Hx Suicide Attempt: No Hx Bipolar Disorder: Yes Hx Schizophrenia: No - Patient Surgical History Past Surgical History: No Hx Neurologic Surgery: No Hx Cataract Extraction: No Hx Cardiac Surgery: No Hx Lung Surgery: No Hx Breast Surgery: No Hx Breast Biopsy: No Hx Abdominal Surgery: No Hx Appendectomy: No Hx Cholecystectomy: No Hx Genitourinary Surgery: No Hx Orthopedic Surgery: No Anesthesia Reaction: No - PPD History Previous Implant?: Yes Documented Results: Negative w/proof Implanted On Prior R Admission?: Yes Date: 06/27/17 Results: 0 mm PPD to be Administered?: No - Smoking Cessation Smoking history: Current every day smoker Have you smoked in the past 12 months: Yes Aproximately how many cigarettes per day: 10 Cigars Per Day: 0 Hx Chewing Tobacco Use: No Initiated information on smoking cessation: Yes 'Breaking Loose' booklet given: 12/03/17 - Substance & Tx. History Hx Alcohol Use: Yes Hx Substance Use: Yes Substance Use Type: Alcohol, Cocaine, Heroin Hx Substance Use Treatment: No - Substances Abused Heroin Route: Inhalation Frequency: Daily Amount used: 8 bags Age of first use: 17 Date of Last Use: 12/02/17 Cocaine Route: Injection Frequency: Daily Amount used: $100 Age of first use: 17 Date of Last Use: 12/02/17 Alcohol-wine Route: Oral Frequency: Daily Amount used: 3 pts. Age of first use: 17 Date of Last Use: 12/02/17 Family Disease History - Family Disease History Family History: Unable to Obtain Admission Physical Exam [facility] - Vital Signs Vital Signs: Vital Signs - 24 hr 12/03/17 10:58 Temperature 98.3 F Pulse Rate 101 H Respiratory 20 Rate Blood Pressure 167/102 - Physical General Appearance: Yes: Disheveled, Thin, Tremorous, Irritable, Sweating, Anxious HEENTM: Yes: EOMI, Hearing grossly Normal, Normocephalic, KELLEE, Pharynx Normal, Nasal Congestion Respiratory: Yes: Chest Non-Tender, Lungs Clear, Normal Breath Sounds, No Respiratory Distress, No Accessory Muscle Use Neck: Yes: No masses,lesions,Nodules, Supple, Trachea in good position Breast: Yes: Breast Exam Deferred Cardiology: Yes: Regular Rhythm, Regular Rate, S1, S2 Abdominal: Yes: Normal Bowel Sounds, Non Tender, Flat, Soft Genitourinary: Yes: Within Normal Limits Back: Yes: Normal Inspection Musculoskeletal: Yes: full range of Motion, Back pain, Muscle Pain Extremities: Yes: Normal Inspection, Normal Range of Motion, Tremors Neurological: Yes: business office assistant II-XII NML intact, Fully Oriented, Disoriented, Depressed Affect Integumentary: Yes: Normal Color, Warm, Moist, Track [place] Lymphatic: Yes: Within Normal Limits Cleared for Admission S - Detox or Rehab [facility] Level of Care: Medically Managed Detox Regimen/Protocol: Methadone/Librium S Breath Alcohol Content Breath Alcohol Content: 0
[2017-12-03] MEDS ORDERED: NICOTINE POLACRILEX 2 MG GUM BUC PRN (11:41)
[2017-12-03] MEDS ORDERED: MENTHOL/PHENOL 1 EACH UD MM PRN (11:41)
[2017-12-03] MEDS ORDERED: hydrOXYzine PAMOATE 50 MG CAPSULE (FP) PO PRN (11:41)
[2017-12-03] MEDS ORDERED: ACETAMINOPHEN 325 MG TABLET (FP) PO PRN (11:41)
[2017-12-03] MEDS ORDERED: IBUPROFEN 400 MG TABLET (FP) PO PRN (11:41)
[2017-12-03] MEDS ORDERED: MAG HYDROX/AL HYDROX/SIMETH 30 ML UNIT-DOSE CUP PO PRN (11:41)
[2017-12-03] MEDS ORDERED: MAGNESIUM HYDROX 2400MG/30ML ORAL SUSPENSION 30 ML CUP PO PRN (11:41)
[2017-12-03] MEDS ORDERED: MAGNESIUM CITRATE 300 ML BOTTLE PO PRN (11:41)
[2017-12-03] MEDS ORDERED: guaiFENesin/D-METHORPHAN HB 10 ML UNIT-DOSE CUPS PO PRN (11:41)
[2017-12-03] MEDS ORDERED: LOPERAMIDE HCL 2 MG CAPSULE PO PRN (11:41)
[2017-12-03] MEDS ORDERED: P-EPHED 60MG/TRIPROLIDI 2.5MG TABLET PO PRN (11:41)
[2017-12-03] MEDS ORDERED: chlordiazePOXIDE HCL 25 MG CAPSULE PO PRN (11:45)
[2017-12-03] MEDS ORDERED: chlordiazePOXIDE HCL 25 MG CAPSULE PO ONE (12:30)
[2017-12-03] MEDS ORDERED: METHADONE HCL 10 MG TABLET (FOR DETOX USE ONLY) PO ONE ×2 (12:30→23:00)
[2017-12-03] MEDS: amLODIPine BESYLATE 5 MG TABLET (FP) PO SCH (12:58)
[2017-12-03] MEDS: chlordiazePOXIDE HCL 25 MG CAPSULE PO SCH ×2 (17:41→22:34)
[2017-12-03] MEDS ORDERED: cloNIDine HCL 0.1 MG TABLET PO ONE (21:48)
[2017-12-03] MEDS ORDERED: MELATONIN 5 MG TABLETS PO PRN (22:00)
[2017-12-03] MEDS: THIAMINE HCL 100 MG TABLET (FP) PO SCH (22:34)
[2017-12-04] MEDS: chlordiazePOXIDE HCL 25 MG CAPSULE PO SCH ×4 (06:10→23:01)
[2017-12-04] MEDS ORDERED: cloNIDine HCL 0.1 MG TABLET PO ONE (06:42)
--- NOTE | 2017-12-04 06:47 | PN ---
[facility] Progress Note Note: Patient's blood pressure is B/P 182/102. Patient is asymptomatic. Vital Signs Temperature 98.1 F 12/04/17 06:16 Pulse Rate 71 12/04/17 06:16 Respiratory Rate 18 12/04/17 06:16 Blood Pressure 182/102 12/04/17 06:16 O2 Sat by Pulse Oximetry (%) Action: Clonidine 0.2 mg tablet ordered
--- NOTE | 2017-12-04 08:47 | EKG ---
Test Reason : Blood Pressure : / mmHG Vent. Rate : 061 BPM Atrial Rate : 061 BPM P-R Int : 160 ms QRS Dur : 110 ms QT Int : 450 ms P-R-T Axes : -53 076 001 degrees QTc Int : 453 ms UNUSUAL P AXIS, POSSIBLE ECTOPIC ATRIAL RHYTHM VOLTAGE CRITERIA FOR LEFT VENTRICULAR HYPERTROPHY ABNORMAL ECG WHEN COMPARED WITH ECG OF 25-JUN-2017 15:24, ECTOPIC ATRIAL RHYTHM HAS REPLACED SINUS RHYTHM NONSPECIFIC T WAVE ABNORMALITY, WORSE IN INFERIOR LEADS Confirmed by MACKENZIE MORRISON MD ([id number]) on 12/04/2017 8:46:41 AM Referred By: Confirmed By:MACKENZIE MORRISON MD
[2017-12-04] MEDS ORDERED: METHADONE HCL 10 MG TABLET (FOR DETOX USE ONLY) PO SCH (10:00)
[2017-12-04 10:10] LABS: HEMATOCRIT 43.2 % (35.4-49); HEMOGLOBIN 14.4 GM/dL (11.7-16.9); MCH 29.2 pg (25.7-33.7); MCHC 33.3 g/dl (32.0-35.9); MEAN CELL VOLUME 87.5 fl (80-96); MEAN PLT VOLUME 10.7 fl (7.5-11.1); PLATELET COUNT 207 K/MM3 (134-434); RBC 4.94 M/mm3 (4.00-5.60); RDW 14.3 % (11.9-15.9); WHITE BLOOD COUNT 8.7 K/mm3 (4.0-10.0)
[2017-12-04 10:30] LABS: CHLORIDE 102 mmol/L (98-107); POTASSIUM 3.6 mmol/L (3.5-5.1); SODIUM 137 mmol/L (136-145)
[2017-12-04 10:46] LABS: ALBUMIN 3.7 g/dl (3.4-5.0); ALK PHOS 98 U/L (45-117); ANION GAP 13 (8-16); BILIRUBIN,TOTAL 0.7 mg/dL (0.2-1.0); BLOOD UREA NITROGEN 22 mg/dL (7-18); CALCIUM 9.2 mg/dL (8.5-10.1); CO2 22 mmol/L (21-32); CREATININE 1.3 mg/dL (0.7-1.3); GLUCOSE,RANDOM 139 mg/dL (74-106); SGOT/AST 27 U/L (15-37); SGPT/ALT 30 U/L (12-78); TOT PROT 8.2 g/dl (6.4-8.2)
[2017-12-04] MEDS: amLODIPine BESYLATE 5 MG TABLET (FP) PO SCH (11:48)
[2017-12-04] MEDS: PRENATAL VITAMINS W/ FOLIC ACID TABLET (FP) PO SCH (11:49)
[2017-12-04] MEDS: NICOTINE 21 MG/24 HOURS TOPICAL PATCH TD SCH (11:50)
[2017-12-04 12:01] LABS: SICKLE CELL SCREEN NEGATIVE (NEGATIVE)
--- NOTE | 2017-12-04 12:30 | CONSULT ---
[facility] Psychiatric Consult - Data Date of interview: 12/04/17 Admission source: [facility] Identifying data: Another admission to [facility] for this 51 y/o male seeking detox treatment on for alcohol,heroin and cocaine dependence.Patient is single,father of " many " children,homeless,unemployed and supported on food stamps. Substance Abuse History: Confirmed by patient.Smoking history: Current every day smoker. Have you smoked in the past 12 months: Yes. Aproximately how many cigarettes per day: 10. Cigars Per Day: 0. Hx Chewing Tobacco Use: No. Initiated information on smoking cessation: Yes. 'Breaking Loose' booklet given : 12/03/17. - Substance & Tx. History. Hx Alcohol Use: Yes. Hx Substance Use : Yes. Substance Use Type: Alcohol, Cocaine, Heroin. Hx Substance Use Treatment: No. - Substances Abused. Heroin. Route: Inhalation. Frequency : Daily. Amount used: 8 bags. Age of first use: 17. Date of Last Use: . Cocaine. Route: Injection. Frequency: Daily. Amount used: $100. Age of first use: 17. Date of Last Use: 12/02/17. Alcohol-wine. Route: Oral. Frequency: Daily. Amount used: 3 pts. Age of first use: 17. Date of Last Use : 12/02/17 Medical History: Hodgkin lymphoma and hypertension. Psychiatric History: Disorganized and unreliable historian.Patient reports a history of psychiatric hospitalizations (number unknown).Diagnosed with Bipolar Disorder.Mr Sr states that he has not been on psychotropic medications for many years.Lost to psychiatric OPD care.Patient denies history of suicide attempts. Physical/Sexual Abuse/Trauma History: Patient denies. Additional Comment: Toxicology not available on admission. Mental Status Exam - Mental Status Exam Alert and Oriented to: Time, Place, Person Cognitive Function: Grossly Intact Patient Appearance: Unkempt, Disheveled Mood: Withdrawn Affect: Mood Congruent Patient Behavior: Fatigued, Cooperative Speech Pattern: Clear Voice Loudness: Normal Thought Process: Goal Oriented Thought Disorder: Bizarre Hallucinations: Denies Suicidal Ideation: Denies Homicidal Ideation: Denies Insight/Judgement: Poor Sleep: Well Appetite: Good Muscle strength/Tone: Normal Gait/Station: Normal Psychiatric Findings - Problem List ([place] 1, 2,3) (1) Opioid dependence with withdrawal Current Visit: Yes Status: Acute (2) Alcohol dependence with uncomplicated withdrawal Current Visit: Yes Status: Acute (3) Cocaine dependence Current Visit: Yes Status: Acute Qualifiers: Substance use status: with unspecified cocaine-induced disorder Qualified Code(s): F14.29 - Cocaine dependence with unspecified cocaine-induced disorder (4) Nicotine dependence Current Visit: Yes Status: Acute Qualifiers: Nicotine product type: cigarettes (5) Substance induced mood disorder Current Visit: Yes Status: Acute - Initial Treatment Plan Initial Treatment Plan: Psychoeducation.Detoxification in progress.Observation.
--- NOTE | 2017-12-04 16:56 | PN ---
[facility] CIWA - CIWA Score Nausea/Vomitin-No Nausea/No Vomiting Muscle Tremors: 2 Anxiety: 4-Mod. Anxious/Guarded Agitation: 5 Paroxysmal Sweats: 2 Orientation: 0-Oriented Tacttile Disturbances: 3-Moderate Itch/Numb/Burn Auditory Disturbances: 0-None Visual Disturbances: 2-Mild Sensitivity Headache: 0-None Present CIWA-Ar Total Score: 18 BHS COWS - Scale Resting Pulse: 0= [place] 80 or Below Sweatin= Chills/Flushing Restless Observation: 1= Difficult to Sit Still Pupil Size: 0= Normal to Room Light Bone or Joint Aches: 2= Severe Diffuse Aches Runny Nose/ Eye Tearin= None GI Upset > 30mins: 2= Nausea/Diarrhea Tremor Observation of Outstretched Hands: 0= None Yawning Observation: 1= 1-2x During Session Anxiety or Irritability: 4=Extreme Anxiety Goose Flesh Skin: 3=Piloerection COWS Score: 14 S Progress Note (SOAP) Subjective: Body Aches, Anxious, Diarrhea, Fatigue. Objective: PATIENT A & O X 3, OBSERVED AMBULATING ON UNIT. NO ACUTE DISTRESS. PATIENT DENIES CHEST PAIN. PATIENT DENIES ANY KNOWN HISTORY OF CARDIAC DISEASE OR ECG ABNORMALITY. 12/04/17 16:54 Vital Signs Temperature 95.9 F L 12/04/17 09:16 Pulse Rate 74 12/04/17 09:16 Respiratory Rate 20 12/04/17 09:16 Blood Pressure 161/97 12/04/17 09:16 O2 Sat by Pulse Oximetry (%) Laboratory Tests 12/04/17 12/04/17 12/04/17 07:50 07:50 07:50 WBC 8.7 D RBC 4.94 Hgb 14.4 Hct 43.2 MCV 87.5 MCH 29.2 MCHC 33.3 RDW 14.3 Plt Count 207 MPV 10.7 Sickle Cell Screen Negative Sodium 137 Potassium 3.6 Chloride 102 Carbon Dioxide 22 Anion Gap 13 BUN 22 H D Creatinine 1.3 D Creat Clearance w eGFR 58.67 Random Glucose 139 H D Calcium 9.2 Total Bilirubin 0.7 AST 27 D ALT 30 Alkaline Phosphatase 98 Total Protein 8.2 Albumin 3.7 RPR Titer Nonreactive LABS NOTED. UA RESULTS PENDING. Assessment: 12/04/17 16:55 WITHDRAWAL SYMPTOMS. Plan: CONTINUE DETOX. PATIENT UNABLE TO REMAIN STEADY FOR REPEAT ECG ORDERED FOR EARLIER THIS AM - RE- ORDER FOR TOMORROW AM.
[2017-12-04] MEDS ORDERED: amLODIPine BESYLATE 5 MG TABLET (FP) PO ONE (17:00)
[2017-12-04] MEDS: THIAMINE HCL 100 MG TABLET (FP) PO SCH (23:01)
[2017-12-05] MEDS: chlordiazePOXIDE HCL 25 MG CAPSULE PO SCH ×2 (06:03→10:06)
[2017-12-05] MEDS ORDERED: amLODIPine BESYLATE 10 MG TABLET (FP) PO SCH (10:00)
[2017-12-05] MEDS ORDERED: METHADONE HCL 5 MG TABLET (FOR DETOX USE ONLY) PO SCH (10:00)
[2017-12-05] MEDS: PRENATAL VITAMINS W/ FOLIC ACID TABLET (FP) PO SCH (10:05)
[2017-12-05 10:06] VITALS: BP 156/98; PULSE 73; TEMP 98.1
[2017-12-05] MEDS: NICOTINE 21 MG/24 HOURS TOPICAL PATCH TD SCH (10:07)
--- NOTE | 2017-12-05 13:52 | DS ---
[facility] Detox Discharge Summary Admission Date: 12/03/17 Discharge Date: 12/05/17 - History Present History: Alcohol Dependence, Cocaine Dependence, Opioid Dependence Pertinent Past History: Hepatitis C - Physical Exam Results Vital Signs: Vital Signs Temperature 98.1 F 12/05/17 10:05 Pulse Rate 73 12/05/17 10:05 Respiratory Rate 20 12/05/17 10:05 Blood Pressure 156/98 12/05/17 10:05 O2 Sat by Pulse Oximetry (%) Pertinent Admission Physical Exam Findings: Withdrawal symptoms Laboratory Tests 12/04/17 12/04/17 12/04/17 07:50 07:50 07:50 WBC 8.7 D RBC 4.94 Hgb 14.4 Hct 43.2 MCV 87.5 MCH 29.2 MCHC 33.3 RDW 14.3 Plt Count 207 MPV 10.7 Sickle Cell Screen Negative Sodium 137 Potassium 3.6 Chloride 102 Carbon Dioxide 22 Anion Gap 13 BUN 22 H D Creatinine 1.3 D Creat Clearance w eGFR 58.67 Random Glucose 139 H D Calcium 9.2 Total Bilirubin 0.7 AST 27 D ALT 30 Alkaline Phosphatase 98 Total Protein 8.2 Albumin 3.7 RPR Titer Nonreactive Labs reviewed: prerenal azotemia (encouraged to drink lots of water for hydration) - Medication Discharge Medications: Ambulatory Orders Acetaminophen [Pain Relief] 650 mg PO Q6H PRN 12/03/17 Amlodipine Besylate [Norvasc -] 5 mg PO DAILY 12/03/17 Dextran 70/Hypromellose [Artificial Tears Eye Drops] 1 drop OP QID 12/03/17 - Diagnosis (1) Alcohol dependence with uncomplicated withdrawal Current Visit: Yes Status: Acute (2) Cocaine dependence Current Visit: Yes Status: Chronic Qualifiers: Substance use status: with unspecified cocaine-induced disorder Qualified Code(s): F14.29 - Cocaine dependence with unspecified cocaine-induced disorder (3) Hepatitis C Current Visit: Yes Status: Chronic Qualifiers: Viral hepatitis chronicity: unspecified Hepatic coma status: without hepatic coma Qualified Code(s): B19.20 - Unspecified viral hepatitis C without hepatic coma (4) Nicotine dependence Current Visit: Yes Status: Chronic Qualifiers: Nicotine product type: cigarettes Substance use status: uncomplicated Qualified Code(s): F17.210 - Nicotine dependence, cigarettes, uncomplicated (5) Opioid dependence with withdrawal Current Visit: Yes Status: Acute (6) Prerenal azotemia Current Visit: Yes Status: Acute - AMA Did Patient Leave Against Medical Advice: Yes (F/U with your PCP within 3 days)
[2017-12-05] MEDS ORDERED: chlordiazePOXIDE 5 MG CAPSULE PO SCH (17:00)
[2017-12-06] MEDS ORDERED: chlordiazePOXIDE HCL 10 MG CAPSULE PO SCH (17:00)
[2017-12-07] MEDS ORDERED: METHADONE HCL 10 MG TABLET (FOR DETOX USE ONLY) PO SCH (10:00)
[2017-12-08] MEDS ORDERED: METHADONE HCL 5 MG TABLET (FOR DETOX USE ONLY) PO SCH (06:00)
== END 2017-12-05 13:52 | disposition left against medical advice (07) | DRG 770 ==
LOC: YASAS 09:59 → Y3N 11:53
PROVIDERS: ADMIT Internal Medicine; ATTEND Internal Medicine
PROC: HZ2ZZZZ Detoxification Services for Substance Abuse Treatment (ICD-10-PCS; principal; 2017-12-03)
DX: F11.23 Opioid dependence with withdrawal (principal); F10.230 Alcohol dependence with withdrawal, uncomplicated; F14.20 Cocaine dependence, uncomplicated; F17.210 Nicotine dependence, cigarettes, uncomplicated; F31.9 Bipolar disorder, unspecified; F19.24 Other psychoactive substance dependence with psychoactive substance-induced mood disorder; B18.2 Chronic viral hepatitis C; R79.89 Other specified abnormal findings of blood chemistry; I10 Essential (primary) hypertension; Z91.14 Patient's other noncompliance with medication regimen; Z85.71 Personal history of Hodgkin lymphoma
CPT/HCPCS: 36415; 80053; 85027; 85660; 86593; 93005; 93010; J0735

== ENCOUNTER 2018-07-23 08:37 | Inpatient (IN) | payer OTHER ==
[2018-07-23 09:14] VITALS: BMI 23.8
--- NOTE | 2018-07-23 10:31 | HP ---
COWS - Scale Resting Pulse: 0= [place] 80 or Below Sweatin= Chills/Flushing Restless Observation: 0= Sits Still Pupil Size: 0= Normal to Room Light Bone or Joint Aches: 1= Mild Discomfort Runny Nose/ Eye Tearin= Runny Nose/Eyes GI Upset > 30mins: 1= Stomach Cramp Tremor Observation: 2= Slight Tremor Visible Yawning Observation: 1= 1-2x During Session Anxiety or Irritability: 2=Irritable/Anxious Goose Flesh Skin: 0=Smooth Skin COWS Score: 10 Admission ROS BHS - HPI Chief Complaint: I'm tired, I want to stop Allergies/Adverse Reactions: Allergies Allergy/AdvReac Type Severity Reaction Status Date / Time No Known Allergies Allergy Verified 12/03/17 10:04 History of Present Illness: 52 yo gentleman here for detox from opiates - denies drinking alcohol currently. Denies seizures but has had black outs. Patient is poor historian - states 'don't remember' when asked many questions such as when he last had an admission for detox - was last here in November 2017 but he thinks he went somewhere after that. Noted he stayed only two days on previous admissions and same discussed with him- importance of completing detox and following through on aftercare such as long term residential care. Exam Limitations: Clinical Condition - Ebola screening Have you traveled outside of the country in the last 21 days: No (N) Have you had contact with anyone from an Ebola affected area: No Have you been sick,other than usual withdrawal symptoms: No Do you have a fever: No - Review of Systems Constitutional: Chills, Loss of Appetite, Malaise, Changes in sleep, Weakness EENT: reports: No Symptoms Reported, Nose Congestion Respiratory: reports: No Symptoms reported Cardiac: reports: No Symptoms Reported GI: reports: Constipated, Poor Appetite, Abdominal cramping : reports: No Symptoms Reported Musculoskeletal: reports: Back Pain, Muscle Pain Integumentary: reports: No Symptoms Reported Neuro: reports: Headache, Tremors Endocrine: reports: No Symptoms Reported Hematology: reports: No Symptoms Reported Psychiatric: reports: Judgement Intact, Mood/Affect Appropiate, Anxious Other Systems: Reviewed and Negative Patient History - Patient Medical History Hx Anemia: No Hx Asthma: Yes (no meds) Hx Chronic Obstructive Pulmonary Disease (COPD): No Hx Cancer: Yes ([facility] lymphoma in remission) Hx Cardiac Disorders: No Hx Congestive Heart Failure: No Hx Hypertension: Yes (non adherent to meds) Hx Hypercholesterolemia: No Hx Pacemaker: No HX Cerebrovascular Accident: No Hx Seizures: No Hx Dementia: No Hx Diabetes: No Hx Gastrointestinal Disorders: No Hx Liver Disease: No Hx Genitourinary Disorders: No Hx Sexually Transmitted Disorders: No Hx Renal Disease (ESRD): No Hx Thyroid Disease: No Hx Human Immunodeficiency Virus (HIV): No (neg 6 m ago ) Hx Hepatitis C: Yes (not treated) Hx Depression: Yes (no meds) Hx Suicide Attempt: Yes (yes but does not remember when - tried to OD) Hx Bipolar Disorder: Yes Hx Schizophrenia: No - Patient Surgical History Past Surgical History: No Hx Neurologic Surgery: No Hx Cataract Extraction: No Hx Cardiac Surgery: No Hx Lung Surgery: No Hx Breast Surgery: No Hx Breast Biopsy: No Hx Abdominal Surgery: No Hx Appendectomy: No Hx Cholecystectomy: No Hx Genitourinary Surgery: No Hx Section: No Hx Orthopedic Surgery: No Other Surgical History: cleft palate repair as child Anesthesia Reaction: No - PPD History Previous Implant?: Yes Documented Results: Negative w/o proof Implanted On Prior R Admission?: Yes Date: 06/27/17 Results: 0 mm PPD to be Administered?: Yes - Reproductive History Patient is a Female of Child Bearing Age (11 -55 yrs old): No (male) - Smoking Cessation Smoking history: Current every day smoker Have you smoked in the past 12 months: Yes Aproximately how many cigarettes per day: 5 Cigars Per Day: 0 Hx Chewing Tobacco Use: No Initiated information on smoking cessation: Yes 'Breaking Loose' booklet given: 07/23/18 (give on floor) - Substance & Tx. History Hx Alcohol Use: No Hx Substance Use: Yes Substance Use Type: Cocaine, Heroin Hx Substance Use Treatment: Yes (detox, rehab) - Substances Abused Heroin Route: Injection Frequency: Daily Amount used: $100 Age of first use: 17 Date of Last Use: 07/22/18 Cocaine Route: Injection Frequency: Daily Amount used: $50 Age of first use: 17 Date of Last Use: 07/23/18 Family Disease History - Family Disease History Family Disease History: Other: Father (, cirrhosis - etoh), Mother ( living,alzheimers), Brother (five - living - healthy), Sister (five - living - healthy), Son (twenty eight sons), Daughter (twenty eight daughters) Admission Physical Exam [facility] - Vital Signs Vital Signs: Vital Signs - 24 hr 07/23/18 09:07 Temperature 97.9 F Pulse Rate 65 Respiratory 20 Rate Blood Pressure 175/113 H - Physical General Appearance: Yes: Nourished, Appropriately Dressed, Moderate Distress, Tremorous HEENTM: Yes: EOMI, Hearing grossly Normal, Normocephalic, Normal Voice, Pharynx Normal, Nasal Congestion, Other (cleft palate repair noted upper lip) Respiratory: Yes: Normal Breath Sounds, No Respiratory Distress Neck: Yes: No masses,lesions,Nodules, Supple Breast: Yes: Breast Exam Deferred Cardiology: Yes: Regular Rhythm, Regular Rate Abdominal: Yes: Soft Genitourinary: Yes: Hesitency Back: Yes: Normal Inspection Musculoskeletal: Yes: full range of Motion, Gait Steady, Back pain, Muscle Pain Extremities: Yes: Normal Inspection, Normal Range of Motion, Non-Tender Neurological: Yes: Alert, Normal Mood/Affect, Normal Response Integumentary: Yes: Normal Color, Dry, Warm, Track Gallagher (both arms - no abscess or erythema noted) Lymphatic: Yes: Within Normal Limits - Diagnostic (1) Opioid dependence with withdrawal Current Visit: Yes Status: Acute (2) Cocaine dependence Current Visit: Yes Status: Chronic Qualifiers: Substance use status: uncomplicated Qualified Code(s): F14.20 - Cocaine dependence, uncomplicated (3) Hepatitis C Current Visit: Yes Status: Chronic Qualifiers: Viral hepatitis chronicity: chronic Hepatic coma status: without hepatic coma Qualified Code(s): B18.2 - Chronic viral hepatitis C Comment: untreated (4) Chronic renal insufficiency, stage III (moderate) Current Visit: Yes Status: Chronic (5) Nicotine dependence Current Visit: Yes Status: Chronic Qualifiers: Nicotine product type: cigarettes Substance use status: uncomplicated Qualified Code(s): F17.210 - Nicotine dependence, cigarettes, uncomplicated (6) History of Hodgkin's lymphoma Current Visit: Yes Status: Resolved (7) History of corrected cleft lip and palate Current Visit: Yes Status: Chronic (8) Uncontrolled hypertension Current Visit: Yes Status: Chronic Comment: will start on meds now given BP 179/113 right arm and 179/106 left arm Cleared for Admission [facility] - Detox or Rehab [facility] Level of Care: Medically Managed Detox Regimen/Protocol: Methadone [facility] Breath Alcohol Content Breath Alcohol Content: 0 Urine Drug Screen - Results Drug Screen Negative: No Urine Drug Screen Results: ERICA-Cocaine, OPI-Opiates, FEN-Fentanyl
[2018-07-23] MEDS ORDERED: ACETAMINOPHEN 325 MG TABLET (FP) PO PRN (10:47)
[2018-07-23] MEDS ORDERED: IBUPROFEN 400 MG TABLET (FP) PO PRN (10:47)
[2018-07-23] MEDS ORDERED: MENTHOL/PHENOL 1 EACH UD MM PRN (10:47)
[2018-07-23] MEDS ORDERED: MAGNESIUM HYDROX 2400MG/30ML ORAL SUSPENSION 30 ML CUP PO PRN (10:47)
[2018-07-23] MEDS ORDERED: guaiFENesin/D-METHORPHAN HB 10 ML UNIT-DOSE CUPS PO PRN (10:47)
[2018-07-23] MEDS ORDERED: MAGNESIUM CITRATE 300 ML BOTTLE PO PRN (10:47)
[2018-07-23] MEDS ORDERED: METHADONE HCL 10 MG TABLET (FOR DETOX USE ONLY) PO ONE ×2 (10:47→23:00)
[2018-07-23] MEDS ORDERED: MAG HYDROX/AL HYDROX/SIMETH 30 ML UNIT-DOSE CUP PO PRN (10:47)
[2018-07-23] MEDS ORDERED: LOPERAMIDE HCL 2 MG CAPSULE PO PRN (10:47)
[2018-07-23] MEDS ORDERED: P-EPHED 60MG/TRIPROLIDI 2.5MG TABLET PO PRN (10:47)
[2018-07-23] MEDS: diazePAM 5 MG TABLET PO PRN ×3 (13:11→22:56)
[2018-07-23] MEDS: HYDROCHLOROTHIAZIDE 25 MG TABLET (FP) PO SCH (13:11)
[2018-07-23] MEDS: LISINOPRIL 5 MG TABLET (FP) PO SCH (13:11)
[2018-07-23] MEDS ORDERED: cloNIDine HCL 0.1 MG TABLET PO ONE ×2 (17:16→22:55)
[2018-07-23] MEDS ORDERED: MELATONIN 5 MG TABLETS PO PRN (22:00)
[2018-07-23] MEDS ORDERED: METHADONE HCL 10 MG TABLET (FOR DETOX USE ONLY) ONE (22:36)
[2018-07-23] MEDS: THIAMINE HCL 100 MG TABLET (FP) PO SCH (22:55)
--- NOTE | 2018-07-24 08:32 | EKG ---
Test Reason : Blood Pressure : / mmHG Vent. Rate : 058 BPM Atrial Rate : 058 BPM P-R Int : 148 ms QRS Dur : 100 ms QT Int : 426 ms P-R-T Axes : -16 061 047 degrees QTc Int : 418 ms SINUS BRADYCARDIA MODERATE VOLTAGE CRITERIA FOR LVH, MAY BE NORMAL VARIANT BORDERLINE ECG WHEN COMPARED WITH ECG OF 03-DEC-2017 12:36, SINUS RHYTHM HAS REPLACED ECTOPIC ATRIAL RHYTHM NONSPECIFIC T WAVE ABNORMALITY NO LONGER EVIDENT IN INFERIOR LEADS Confirmed by PRINCE DOBSON, MACKENZIE ([id number]) on 07/24/2018 8:31:48 AM Referred By: Confirmed By:MACKENZIE MORRISON MD
[2018-07-24] MEDS ORDERED: METHADONE HCL 10 MG TABLET (FOR DETOX USE ONLY) PO ONE (10:00)
[2018-07-24 10:53] LABS: HEMATOCRIT 42.2 % (35.4-49); HEMOGLOBIN 13.6 GM/dL (11.7-16.9); MCH 28.4 pg (25.7-33.7); MCHC 32.2 g/dl (32.0-35.9); MEAN CELL VOLUME 88.1 fl (80-96); MEAN PLT VOLUME 11.1 fl (7.5-11.1); PLATELET COUNT 115 K/MM3 (134-434); RBC 4.79 M/mm3 (4.00-5.60); RDW 13.8 % (11.9-15.9); WHITE BLOOD COUNT 3.6 K/mm3 (4.0-10.0)
[2018-07-24] MEDS: LISINOPRIL 5 MG TABLET (FP) PO SCH (10:58)
[2018-07-24] MEDS: PRENATAL VITAMINS W/ FOLIC ACID TABLET (FP) PO SCH (10:58)
[2018-07-24] MEDS: HYDROCHLOROTHIAZIDE 25 MG TABLET (FP) PO SCH (10:59)
[2018-07-24 11:02] LABS: ALBUMIN 3.6 g/dl (3.4-5.0); ALK PHOS 102 U/L (45-117); ANION GAP 6 MMOL/L (8-16); BILIRUBIN,TOTAL 0.6 mg/dL (0.2-1); BLOOD UREA NITROGEN 16 mg/dL (7-18); CALCIUM 9.4 mg/dL (8.5-10.1); CHLORIDE 103 mmol/L (98-107); CO2 28 mmol/L (21-32); GLUCOSE,RANDOM 108 mg/dL (74-106); POTASSIUM 3.8 mmol/L (3.5-5.1); SGOT/AST 33 U/L (15-37); SGPT/ALT 35 U/L (13-61); SODIUM 137 mmol/L (136-145); TOT PROT 7.4 g/dl (6.4-8.2)
[2018-07-24] MEDS ORDERED: FLU VACCINE QUAD 60 MCG/0.5 ML (MDV 18-19) IM ONE (12:00)
--- NOTE | 2018-07-24 14:07 | CONSULT ---
[facility] Psychiatric Consult - Data Date of interview: 07/24/18 (Self-referred) Admission source: Self-referred Identifying data: Mr Sr is a 52 years old single male, father of 28 children, unemployedwith no source of income, homeless seeking detox treatment for opioid and cocaine Substance Abuse History: Reports history of heroin and cocaine use. Refer to addiction counselor's summary for further information Medical History: Significant for bronchial asthma, hypertension hepatitis C, history of treatment for hodgkin's lymphome(in remission) and surgery for cleft palate. Smokes 5 cigarettes daily
--- NOTE | 2018-07-24 14:09 | PN ---
S Progress Note Note: Patient was approached a few times for psychatric interview and was found in bed sleeping. Told keno writer/runner he was very tired and did not want to be interviewed
[2018-07-24] MEDS: cloNIDine HCL 0.1 MG TABLET PO PRN ×2 (15:24→22:28)
--- NOTE | 2018-07-24 15:50 | PN ---
BHS COWS - Scale Resting Pulse: 0= [place] 80 or Below Sweatin= Chills/Flushing Restless Observation: 3= Extraneous Movement Pupil Size: 0= Normal to Room Light Bone or Joint Aches: 2= Severe Diffuse Aches Runny Nose/ Eye Tearin= Runny Nose/Eyes GI Upset > 30mins: 3= Vomiting/Diarrhea Tremor Observation of Outstretched Hands: 2= Slight Tremor Visible Yawning Observation: 0= None Anxiety or Irritability: 2=Irritable/Anxious Goose Flesh Skin: 0=Smooth Skin COWS Score: 15 BHS Progress Note (SOAP) Subjective: Patient asleep Objective: 07/24/18 15:47 Last Vital Signs Temp Pulse Resp BP Pulse Ox 96.3 F L 77 18 171/107 H 07/24/18 14:13 07/24/18 14:13 07/24/18 14:13 07/24/18 14:13 HTN, uncontrolled Laboratory Tests 07/24/18 07/24/18 07/24/18 07:50 07:50 07:50 WBC 3.6 L RBC 4.79 Hgb 13.6 Hct 42.2 MCV 88.1 MCH 28.4 MCHC 32.2 RDW 13.8 Plt Count 115 L D MPV 11.1 Platelet Comment Rare giant plts Sodium 137 Potassium 3.8 Chloride 103 Carbon Dioxide 28 Anion Gap 6 L BUN 16 Creatinine 1.0 Creat Clearance w eGFR > 60 Random Glucose 108 H Calcium 9.4 Total Bilirubin 0.6 AST 33 ALT 35 Alkaline Phosphatase 102 Total Protein 7.4 Albumin 3.6 RPR Titer HIV 1&2 Antibody Screen Negative HIV P24 Antigen Negative 07/24/18 07:50 WBC RBC Hgb Hct MCV MCH MCHC RDW Plt Count MPV Platelet Comment Sodium Potassium Chloride Carbon Dioxide Anion Gap BUN Creatinine Creat Clearance w eGFR Random Glucose Calcium Total Bilirubin AST ALT Alkaline Phosphatase Total Protein Albumin RPR Titer Nonreactive HIV 1&2 Antibody Screen HIV P24 Antigen Labs reviewed Assessment: 07/24/18 15:47 Withdrawal symptoms Noted with uncontrolled htn Plan: Continue detox Encourage PO water intake HTN, uncontrolled: start clonidine 0.1mg PO q8hr prn if b/p > 140/90, continue HCTZ 25mg PO daily, increase lisinopril to 10mg PO bid, consider further increasing lisinopril if warranted, continue to monitor
[2018-07-24] MEDS: diazePAM 5 MG TABLET PO PRN (22:28)
[2018-07-24] MEDS: THIAMINE HCL 100 MG TABLET (FP) PO SCH (22:29)
[2018-07-24] MEDS: LISINOPRIL 10 MG TABLET (FP) PO SCH (22:31)
[2018-07-25] MEDS: cloNIDine HCL 0.1 MG TABLET PO PRN ×3 (06:07→22:04)
[2018-07-25] MEDS ORDERED: METHADONE HCL 5 MG TABLET (FOR DETOX USE ONLY) PO ONE (10:00)
[2018-07-25] MEDS: HYDROCHLOROTHIAZIDE 25 MG TABLET (FP) PO SCH (10:44)
[2018-07-25] MEDS: LISINOPRIL 10 MG TABLET (FP) PO SCH ×2 (10:44→22:04)
[2018-07-25] MEDS: PRENATAL VITAMINS W/ FOLIC ACID TABLET (FP) PO SCH (10:44)
[2018-07-25] MEDS: amLODIPine BESYLATE 10 MG TABLET (FP) PO SCH (10:45)
--- NOTE | 2018-07-25 12:58 | PN ---
BHS COWS - Scale Resting Pulse: 0= [place] 80 or Below Sweatin= Chills/Flushing Restless Observation: 1= Difficult to Sit Still Pupil Size: 1= Pupils >than Normal Bone or Joint Aches: 2= Severe Diffuse Aches Runny Nose/ Eye Tearin= Nasal Congestion GI Upset > 30mins: 1= Stomach Cramp Tremor Observation of Outstretched Hands: 2= Slight Tremor Visible Yawning Observation: 1= 1-2x During Session Anxiety or Irritability: 1=Feels Anxious/Irritable Goose Flesh Skin: 0=Smooth Skin COWS Score: 11 BHS Progress Note (SOAP) Subjective: long history of hypertension none adherence with anti hypertensant begin lisinopril and amlodipine as well as clonidine prn history of Cancer in 1984 had "chemotherapy last dose 1996 currently no treatment bipolar II disorder treated with respiradal Depakote and sequels patient was hospitalized for efra and depression as well as suicidal attempted "years" ago psy referral body aches muscle cramping tremor sweating restlessness Objective: 07/25/18 13:20 Vital Signs Temperature 97.0 F L 07/25/18 10:06 Pulse Rate 60 07/25/18 10:06 Respiratory Rate 16 07/25/18 10:06 Blood Pressure 152/85 07/25/18 10:06 O2 Sat by Pulse Oximetry (%) Laboratory Last Values WBC 3.6 K/mm3 (4.0-10.0) L 07/24/18 07:50 RBC 4.79 M/mm3 (4.00-5.60) 07/24/18 07:50 Hgb 13.6 GM/dL (11.7-16.9) 07/24/18 07:50 Hct 42.2 % (35.4-49) 07/24/18 07:50 MCV 88.1 fl (80-96) 07/24/18 07:50 MCH 28.4 pg (25.7-33.7) 07/24/18 07:50 MCHC 32.2 g/dl (32.0-35.9) 07/24/18 07:50 RDW 13.8 % (11.9-15.9) 07/24/18 07:50 Plt Count 115 K/MM3 (134-434) L D 07/24/18 07:50 MPV 11.1 fl (7.5-11.1) 07/24/18 07:50 Platelet Comment Rare giant plts 07/24/18 07:50 Sodium 137 mmol/L (136-145) 07/24/18 07:50 Potassium 3.8 mmol/L (3.5-5.1) 07/24/18 07:50 Chloride 103 mmol/L (98-107) 07/24/18 07:50 Carbon Dioxide 28 mmol/L (21-32) 07/24/18 07:50 Anion Gap 6 MMOL/L (8-16) L 07/24/18 07:50 BUN 16 mg/dL (7-18) 07/24/18 07:50 Creatinine 1.0 mg/dL (0.55-1.3) 07/24/18 07:50 Creat Clearance w eGFR > 60 (>60) 07/24/18 07:50 Random Glucose 108 mg/dL (74-106) H 07/24/18 07:50 Calcium 9.4 mg/dL (8.5-10.1) 07/24/18 07:50 Total Bilirubin 0.6 mg/dL (0.2-1) 07/24/18 07:50 AST 33 U/L (15-37) 07/24/18 07:50 ALT 35 U/L (13-61) 07/24/18 07:50 Alkaline Phosphatase 102 U/L (45-117) 07/24/18 07:50 Total Protein 7.4 g/dl (6.4-8.2) 07/24/18 07:50 Albumin 3.6 g/dl (3.4-5.0) 07/24/18 07:50 RPR Titer Nonreactive (NONREACTIVE) 07/24/18 07:50 HIV 1&2 Antibody Screen Negative 07/24/18 07:50 HIV P24 Antigen Negative 07/24/18 07:50 lab noted Assessment: 07/25/18 13:20 withdrawal sx Plan: continue detox
--- NOTE | 2018-07-25 13:20 | CONSULT ---
[facility] Psychiatric Consult - Data Date of interview: 07/25/18 Admission source: [facility] Identifying data: This is a 52 years old male, single, homeless, on PA support, with history of Biupolar disorder, with multiple psychiatric hospitralization history, reports Opioids withdrawal symptoms and seeking for detox. Patient denies suicdial, homicidal history. Patient is poor historian, with tangential thought content, reportsm haviong 28 children from different women, reports taking Depakote in the past , refusing to restart medications. Patient suffers kidney insufficiency stage III Substance Abuse History: Smoking history: Current every day smoker. Have you smoked in the past 12 months: Yes. Aproximately how many cigarettes per day: 5. Cigars Per Day: 0. Hx Chewing Tobacco Use: No. Initiated information on smoking cessation: Yes. 'Breaking Loose' booklet given: 07/23/18 (give on floor ). - Substance & Tx. History. Hx Alcohol Use: No. Hx Substance Use: Yes. Substance Use Type: Cocaine, Heroin. Hx Substance Use Treatment: Yes (detox, rehab). - Substances Abused. Heroin. Route: Injection. Frequency: Daily. Amount used: $100. Age of first use: 17. Date of Last Use: 07/22/18. Cocaine. Route: Injection. Frequency: Daily. Amount used: $50. Age of first use: 17. Date of Last Use: 07/23/18 Medical History: HTN, Asthma, Renal Insufficiency stage III, , HepC+, Facial srgery S/P, Psychiatric History: Patient reports Bip[olar Disorder history, reports taking Depakopte in thepast and Zoloft, aaagrees to restart Zoloft 50mg p[oqd. Denies suicidal homicidal history. Poor Hisotrian, tangential in thought concent. Physical/Sexual Abuse/Trauma History: Unclear Additional Comment: Zoloft 50mg poqd Mental Status Exam - Mental Status Exam Alert and Oriented to: Person Cognitive Function: Fair Patient Appearance: Unkempt Mood: Anxious, Irritable Affect: Labile Patient Behavior: Cooperative, Agitated Speech Pattern: Garbled, Excessive, Aphasic Voice Loudness: Normal Thought Process: Circumstantial, Tangential Thought Disorder: Present Hallucinations: Denies Suicidal Ideation: Denies Homicidal Ideation: Denies Insight/Judgement: Poor Sleep: Difficulty falling asleep Appetite: Weight loss Muscle strength/Tone: Normal Gait/Station: Normal Additional Comments: Zoloft 50mg poqd Psychiatric Findings - Problem List ([place] 1, 2,3) (1) Opioid dependence with withdrawal Current Visit: Yes Status: Acute (2) Uncontrolled hypertension Current Visit: Yes Status: Acute Comment: will start on meds now given BP 179/113 right arm and 179/106 left arm (3) Asthma Current Visit: Yes Status: Chronic (4) Bipolar disorder Current Visit: Yes Status: Chronic (5) Chronic renal insufficiency, stage III (moderate) Current Visit: Yes Status: Chronic (6) Cocaine dependence Current Visit: Yes Status: Chronic Qualifiers: Substance use status: uncomplicated Qualified Code(s): F14.20 - Cocaine dependence, uncomplicated (7) Hepatitis C Current Visit: Yes Status: Chronic Qualifiers: Viral hepatitis chronicity: chronic Hepatic coma status: without hepatic coma Qualified Code(s): B18.2 - Chronic viral hepatitis C Comment: untreated (8) Alcohol dependence with uncomplicated withdrawal Current Visit: No Status: Acute (9) Opiate addiction Current Visit: No Status: Acute (10) Prerenal azotemia Current Visit: No Status: Acute (11) Substance induced mood disorder Current Visit: No Status: Acute - Initial Treatment Plan Initial Treatment Plan: zoloft 50mg po qhs
[2018-07-25] MEDS: diazePAM 5 MG TABLET PO PRN ×2 (17:12→22:03)
[2018-07-25] MEDS: THIAMINE HCL 100 MG TABLET (FP) PO SCH (22:03)
[2018-07-26] MEDS: diazePAM 5 MG TABLET PO PRN (05:39)
[2018-07-26 09:34] VITALS: BP 154/90; PULSE 65; TEMP 97.2
[2018-07-26] MEDS ORDERED: METHADONE HCL 5 MG TABLET (FOR DETOX USE ONLY) PO ONE (10:00)
[2018-07-26] MEDS: amLODIPine BESYLATE 10 MG TABLET (FP) PO SCH (10:13)
[2018-07-26] MEDS: PRENATAL VITAMINS W/ FOLIC ACID TABLET (FP) PO SCH (10:13)
[2018-07-26] MEDS: LISINOPRIL 10 MG TABLET (FP) PO SCH (10:13)
[2018-07-26] MEDS: HYDROCHLOROTHIAZIDE 25 MG TABLET (FP) PO SCH (10:13)
--- NOTE | 2018-07-26 14:46 | PN ---
[facility] Progress Note (SOAP) Subjective: Body Aches, Anxious, Agitated. Objective: PATIENT A & O X 3, OBSERVED AMBULATING ON UNIT. IN NO ACUTE DISTRESS. 07/26/18 14:43 Vital Signs Temperature 97.2 F L 07/26/18 09:33 Pulse Rate 65 07/26/18 09:33 Respiratory Rate 16 07/26/18 09:33 Blood Pressure 154/90 07/26/18 09:33 O2 Sat by Pulse Oximetry (%) Laboratory Tests 07/24/18 07/24/18 07/24/18 07:50 07:50 07:50 WBC 3.6 L RBC 4.79 Hgb 13.6 Hct 42.2 MCV 88.1 MCH 28.4 MCHC 32.2 RDW 13.8 Plt Count 115 L D MPV 11.1 Platelet Comment Rare giant plts Sodium 137 Potassium 3.8 Chloride 103 Carbon Dioxide 28 Anion Gap 6 L BUN 16 Creatinine 1.0 Creat Clearance w eGFR > 60 Random Glucose 108 H Calcium 9.4 Total Bilirubin 0.6 AST 33 ALT 35 Alkaline Phosphatase 102 Total Protein 7.4 Albumin 3.6 RPR Titer HIV 1&2 Antibody Screen Negative HIV P24 Antigen Negative 07/24/18 07:50 WBC RBC Hgb Hct MCV MCH MCHC RDW Plt Count MPV Platelet Comment Sodium Potassium Chloride Carbon Dioxide Anion Gap BUN Creatinine Creat Clearance w eGFR Random Glucose Calcium Total Bilirubin AST ALT Alkaline Phosphatase Total Protein Albumin RPR Titer Nonreactive HIV 1&2 Antibody Screen HIV P24 Antigen LABS NOTED. Assessment: 07/26/18 14:44 WITHDRAWAL SYMPTOMS. Plan: CONTINUE DETOX.
--- NOTE | 2018-07-26 14:52 | DS ---
[facility] Detox Discharge Summary Admission Date: 07/23/18 Discharge Date: 07/26/18 - History Present History: Alcohol Dependence, Cocaine Dependence, Opioid Dependence Additional Comments: PATIENT DOES NOT WISH TO REMAIN TO COMPLETE DETOX REGIMEN. RISKS OF LEAVING DETOX UNIT AGAINST MEDICAL ADVICE AND PRIOR TO COMPLETION OF DETOX REGIMEN EXPLAINED TO PATIENT. PATIENT AGITATED AND UNWILLING TO BE MEDICALLY EXAMINED PRIOR TO LEAVING UNIT. PATIENT ADVISED TO GO IMMEDIATELY TO NEAREST ER SHOULD ANY INTOLERABLE DETOX SYMPTOMS DEVELOP AT ANY TIME. PATIENT VERBALIZED UNDERSTANDING OF ALL INFORMATION / RECOMMENDATIONS PRESENTED TO HIM PRIOR TO DEPARTURE FROM DETOX UNIT. Pertinent Past History: History of Hodgkin's Lymphoma (In Remission), HTN, History of Bipolar disorder, Hep C, Nicotine Dependence, History of Corrected Cleft Lip And Palate, History of Pre-Renal Azotemia, Asthma, History of Chronic Renal Insufficiency (Stage III ), History of Depression. - Physical Exam Results Vital Signs: Vital Signs Temperature 97.2 F L 07/26/18 09:33 Pulse Rate 65 07/26/18 09:33 Respiratory Rate 16 07/26/18 09:33 Blood Pressure 154/90 07/26/18 09:33 O2 Sat by Pulse Oximetry (%) Pertinent Admission Physical Exam Findings: WITHDRAWAL SYMPTOMS. Laboratory Tests 07/24/18 07/24/18 07/24/18 07:50 07:50 07:50 WBC 3.6 L RBC 4.79 Hgb 13.6 Hct 42.2 MCV 88.1 MCH 28.4 MCHC 32.2 RDW 13.8 Plt Count 115 L D MPV 11.1 Platelet Comment Rare giant plts Sodium 137 Potassium 3.8 Chloride 103 Carbon Dioxide 28 Anion Gap 6 L BUN 16 Creatinine 1.0 Creat Clearance w eGFR > 60 Random Glucose 108 H Calcium 9.4 Total Bilirubin 0.6 AST 33 ALT 35 Alkaline Phosphatase 102 Total Protein 7.4 Albumin 3.6 RPR Titer HIV 1&2 Antibody Screen Negative HIV P24 Antigen Negative 07/24/18 07:50 WBC RBC Hgb Hct MCV MCH MCHC RDW Plt Count MPV Platelet Comment Sodium Potassium Chloride Carbon Dioxide Anion Gap BUN Creatinine Creat Clearance w eGFR Random Glucose Calcium Total Bilirubin AST ALT Alkaline Phosphatase Total Protein Albumin RPR Titer Nonreactive HIV 1&2 Antibody Screen HIV P24 Antigen LABS NOTED. - Treatment Hospital Course: Detoxed Safely - Medication Discharge Medications: Ambulatory Orders NK [No Known Home Medication] 07/23/18 - Diagnosis (1) Opioid dependence with withdrawal Status: Acute (2) Prerenal azotemia Status: Chronic (3) Substance induced mood disorder Status: Acute (4) Uncontrolled hypertension Status: Acute (5) Asthma Status: Chronic Qualifiers: Asthma severity: mild Asthma persistence: intermittent Asthma complication type: uncomplicated Qualified Code(s): J45.20 - Mild intermittent asthma, uncomplicated (6) Bipolar disorder Status: Chronic Qualifiers: Active/Remission status: remission status unspecified Qualified Code(s): F31.9 - Bipolar disorder, unspecified (7) Cocaine dependence Status: Chronic Qualifiers: Substance use status: uncomplicated Qualified Code(s): F14.20 - Cocaine dependence, uncomplicated (8) Hepatitis C Status: Chronic Qualifiers: Viral hepatitis chronicity: chronic Hepatic coma status: without hepatic coma Qualified Code(s): B18.2 - Chronic viral hepatitis C (9) History of corrected cleft lip and palate Status: Chronic (10) Nicotine dependence Status: Chronic Qualifiers: Nicotine product type: cigarettes Substance use status: uncomplicated Qualified Code(s): F17.210 - Nicotine dependence, cigarettes, uncomplicated (11) Alcohol dependence with uncomplicated withdrawal Status: Acute (12) Chronic renal insufficiency, stage III (moderate) Status: Chronic - AMA Did Patient Leave Against Medical Advice: Yes (PATIENT DID NOT WISH TO REMAIN AND COMPELTE DETOX REGIMEN.)
[2018-07-27] MEDS ORDERED: METHADONE HCL 10 MG TABLET (FOR DETOX USE ONLY) PO ONE (10:00)
[2018-07-28] MEDS ORDERED: METHADONE HCL 5 MG TABLET (FOR DETOX USE ONLY) PO ONE (06:00)
== END 2018-07-26 11:20 | disposition left against medical advice (07) | DRG 770 ==
LOC: YASAS 08:37 → Y3N 11:03
PROC: HZ2ZZZZ Detoxification Services for Substance Abuse Treatment (ICD-10-PCS; principal; 2018-07-23)
DX: F11.23 Opioid dependence with withdrawal (principal); F10.230 Alcohol dependence with withdrawal, uncomplicated; F14.20 Cocaine dependence, uncomplicated; F17.210 Nicotine dependence, cigarettes, uncomplicated; F19.24 Other psychoactive substance dependence with psychoactive substance-induced mood disorder; F31.9 Bipolar disorder, unspecified; I10 Essential (primary) hypertension; R79.89 Other specified abnormal findings of blood chemistry; J45.909 Unspecified asthma, uncomplicated; B18.2 Chronic viral hepatitis C; Z85.71 Personal history of Hodgkin lymphoma; Z91.14 Patient's other noncompliance with medication regimen; Z91.5 Personal history of self-harm; Z59.0 Homelessness
CPT/HCPCS: 36415; 80053; 85027; 86593; 87389; 93005; 93010; J0735

== ENCOUNTER 2018-09-05 08:41 | Inpatient (IN) | payer OTHER ==
[2018-09-05 08:55] VITALS: BMI 23.1
--- NOTE | 2018-09-05 09:21 | HP ---
COWS - Scale Resting Pulse: 0= [place] 80 or Below Sweatin= Chills/Flushing Restless Observation: 3= Extraneous Movement Pupil Size: 1= Pupils >than Normal Bone or Joint Aches: 2= Severe Diffuse Aches Runny Nose/ Eye Tearin= Runny Nose/Eyes GI Upset > 30mins: 2= Nausea/Diarrhea Tremor Observation: 2= Slight Tremor Visible Yawning Observation: 2= >3x During Session Anxiety or Irritability: 2=Irritable/Anxious Goose Flesh Skin: 0=Smooth Skin COWS Score: 17 CIWA Score Nausea/Vomitin Muscle Tremors: 2 Anxiety: 2 Agitation: 2 Paroxysmal Sweats: 1-Minimal Palms Moist Orientation: 0-Oriented Tacttile Disturbances: 1-Very Mild Itch/Numbness Auditory Disturbances: 1-Very Mild Visual Disturbances: 0-None Headache: 2-Mild CIWA-Ar Total Score: 13 - Admission Criteria OASAS Guidelines: Admission for Medically Managed Detox: Requires at least one of the followin. CIWA greater than 12 2. Seizures within the past 24 hours 3. Delirium tremens within the past 24 hours 4. Hallucinations within the past 24 hours 5. Acute intervention needed for co occurring medical disorder 6. Acute intervention needed for co occurring psychiatric disorder 7. Severe withdrawal that cannot be handled at a lower level of care (continued vomiting, continued diarrhea, abnormal vital signs) requiring intravenous medication and/or fluids 8. Patient presents the following: CIWA greater than 12 Admission Criteria Met: Admission criteria met Admission ROS S - [facility] Chief Complaint: i need help to stop using heroin and alcohol Allergies/Adverse Reactions: Allergies Allergy/AdvReac Type Severity Reaction Status Date / Time No Known Allergies Allergy Verified 12/03/17 10:04 History of Present Illness: this 52 years old male with heroin and alcohol dependence,seeking detox, withdrawal symptom, multiple admissions in detox,but keep relapsing last detox [facility] 07/23/18 to 07/26 19 nicotine dependence hypertension no med hepatitis c syncope alcohol related bipolar disorder no med plan to go to rehab after detox Exam Limitations: No Limitations - Ebola screening Have you traveled outside of the country in the last 21 days: No Have you had contact with anyone from an Ebola affected area: No Have you been sick,other than usual withdrawal symptoms: No - Review of Systems Constitutional: Chills, Loss of Appetite, Malaise, Night Sweats, Changes in sleep, Weakness, Unintentional Wgt. Loss EENT: reports: Tearing, Nose Congestion Respiratory: reports: No Symptoms reported Cardiac: reports: No Symptoms Reported GI: reports: Nausea, Poor Appetite, Vomiting, Abdominal cramping : reports: No Symptoms Reported Musculoskeletal: reports: Joint Pain, Muscle Pain, Joint Stiffness Integumentary: reports: Dryness Neuro: reports: Headache, Tremors Endocrine: reports: No Symptoms Reported Hematology: reports: No Symptoms Reported Psychiatric: reports: No Sypmtoms Reported, Judgement Intact, Mood/Affect Appropiate, Depressed, other (bipolar disorder) Other Systems: Reviewed and Negative Patient History - Patient Medical History Hx Anemia: No Hx Asthma: Yes (no meds) Hx Chronic Obstructive Pulmonary Disease (COPD): No Hx Cancer: Yes (hogkins lymphoma in remission) Hx Cardiac Disorders: No Hx Congestive Heart Failure: No Hx Hypertension: Yes (non adherent to meds) Hx Hypercholesterolemia: No Hx Pacemaker: No HX Cerebrovascular Accident: No Hx Seizures: No Hx Dementia: No Hx Diabetes: No Hx Gastrointestinal Disorders: No Hx Liver Disease: No Hx Genitourinary Disorders: No Hx Sexually Transmitted Disorders: No Hx Renal Disease (ESRD): No Hx Thyroid Disease: No Hx Human Immunodeficiency Virus (HIV): No (last 2018 negative) Hx Hepatitis C: Yes (not treated) Hx Depression: Yes (no meds) Hx Suicide Attempt: Yes (yes but does not remember when - tried to OD) Hx Bipolar Disorder: Yes Hx Schizophrenia: No Other Medical History: no suicidal,no homicidal - Patient Surgical History Past Surgical History: No Hx Neurologic Surgery: No Hx Cataract Extraction: No Hx Cardiac Surgery: No Hx Lung Surgery: No Hx Breast Surgery: No Hx Breast Biopsy: No Hx Abdominal Surgery: No Hx Appendectomy: No Hx Cholecystectomy: No Hx Genitourinary Surgery: No Hx Section: No Hx Orthopedic Surgery: No Other Surgical History: cleft palate repair as child Anesthesia Reaction: No - PPD History Previous Implant?: Yes Documented Results: Negative w/proof Implanted On Prior [facility] Admission?: Yes Date: 07/25/18 Results: 0 mm PPD to be Administered?: No - Smoking Cessation Smoking history: Current every day smoker Have you smoked in the past 12 months: Yes Aproximately how many cigarettes per day: 5 Cigars Per Day: 0 Hx Chewing Tobacco Use: No Initiated information on smoking cessation: Yes 'Breaking Loose' booklet given: 09/05/18 - Substance & Tx. History Hx Alcohol Use: Yes Hx Substance Use: Yes Substance Use Type: Alcohol, Heroin Hx Substance Use Treatment: Yes ([facility] 07/23/18 to 07/26/18) - Substances Abused Heroin Route: Injection Frequency: Daily Amount used: 3 bags Age of first use: 15 Date of Last Use: 09/04/18 Alcohol Route: Oral Frequency: Daily Amount used: 1 pint of vodka,3 of 24 ozs of beer Age of first use: 17 Date of Last Use: 09/04/18 Family Disease History - Family Disease History Family Disease History: Other: Father (, cirrhosis - etoh), Mother ( living,alzheimers), Brother (five - living - healthy), Sister (five - living - healthy), Son (twenty eight sons), Daughter (twenty eight daughters) Admission Physical Exam [facility] - Vital Signs Vital Signs: Vital Signs - 24 hr 09/05/18 08:50 Temperature 96.8 F L Pulse Rate 66 Respiratory 18 Rate Blood Pressure 176/104 H - Physical General Appearance: Yes: Moderate Distress, Tremorous, Irritable, Sweating, Anxious HEENTM: Yes: Normal ENT Inspection, Normocephalic, Normal Voice, KELLEE, Pharynx Normal, Other (scar of lip) Respiratory: Yes: Within Normal Limits, Lungs Clear, Normal Breath Sounds Neck: Yes: Within Normal Limits, Supple, Trachea in good position Breast: Yes: Within Normal Limits Cardiology: Yes: Within Normal Limits, Regular Rhythm, Regular Rate, S1, S2 Abdominal: Yes: Within Normal Limits, Normal Bowel Sounds, Non Tender, Soft Genitourinary: Yes: Within Normal Limits Back: Yes: Within Normal Limits, Normal Inspection, Muscle Spasm Musculoskeletal: Yes: full range of Motion, Back pain, Joint Stiffness, Muscle Pain Extremities: Yes: Normal Capillary Refill, Normal Range of Motion, Tremors Neurological: Yes: load test mechanic II-XII NML intact, Fully Oriented, Alert, Motor Strength 5/5 Integumentary: Yes: Dry Lymphatic: Yes: Within Normal Limits - Diagnostic (1) Alcohol dependence with uncomplicated withdrawal Current Visit: No Status: Acute (2) Opioid dependence with withdrawal Current Visit: No Status: Acute (3) Hepatitis C Current Visit: No Status: Chronic Qualifiers: Viral hepatitis chronicity: chronic Hepatic coma status: without hepatic coma Qualified Code(s): B18.2 - Chronic viral hepatitis C Comment: untreated (4) Nicotine dependence Current Visit: No Status: Chronic Qualifiers: Nicotine product type: cigarettes Substance use status: uncomplicated Qualified Code(s): F17.210 - Nicotine dependence, cigarettes, uncomplicated (5) Essential hypertension Current Visit: Yes Status: Acute (6) Hodgkin lymphoma Current Visit: Yes Status: Acute (7) Weight loss Current Visit: Yes Status: Acute (8) Bipolar disorder Current Visit: Yes Status: Acute Cleared for Admission [facility] - Detox or Rehab S Level of Care: Medically Managed Detox Regimen/Protocol: Methadone/Librium [facility] Breath Alcohol Content Breath Alcohol Content: 0 Urine Drug Screen - Results Drug Screen Negative: Yes Urine Drug Screen Results: THC-Marijuana, ERICA-Cocaine, OPI-Opiates, BZO- Benzodiazepines, OXY-Oxycodone, FEN-Fentanyl Inpatient Rehab Admission - Rehab Decision to Admit Inpatient rehab admission?: No
[2018-09-05] MEDS ORDERED: P-EPHED 60MG/TRIPROLIDI 2.5MG TABLET PO PRN (09:35)
[2018-09-05] MEDS ORDERED: MAGNESIUM HYDROX 2400MG/30ML ORAL SUSPENSION 30 ML CUP PO PRN (09:35)
[2018-09-05] MEDS ORDERED: MAG HYDROX/AL HYDROX/SIMETH 30 ML UNIT-DOSE CUP PO PRN (09:35)
[2018-09-05] MEDS ORDERED: MAGNESIUM CITRATE 300 ML BOTTLE PO PRN (09:35)
[2018-09-05] MEDS ORDERED: MENTHOL/PHENOL 1 EACH UD MM PRN (09:35)
[2018-09-05] MEDS ORDERED: IBUPROFEN 400 MG TABLET (FP) PO PRN (09:35)
[2018-09-05] MEDS ORDERED: LOPERAMIDE HCL 2 MG CAPSULE PO PRN (09:35)
[2018-09-05] MEDS ORDERED: ACETAMINOPHEN 325 MG TABLET (FP) PO PRN (09:35)
[2018-09-05] MEDS ORDERED: guaiFENesin/D-METHORPHAN HB 10 ML UNIT-DOSE CUPS PO PRN (09:35)
--- NOTE | 2018-09-05 11:09 | CONSULT ---
[facility] Psychiatric Consult - Data Date of interview: 09/05/18 Admission source: [facility] Identifying data: This is a 52 years old male, single father of Nano(?) melinda, all of them in [facility], unemployed, homeless, on PA support, with a history of Bipolar Disorder, history of psychiatric admissions, reports Alcophol Opioids , Nicotine dependence, is here reporting woithdrawal symptoms and seeking for detox. As per chart patient with [facility] detox admissions history. Patient probably has cognitive impairment due to Bipolar Disorder, and probably with mild MR. Substance Abuse History: - Smoking Cessation. Smoking history: Current every day smoker. Have you smoked in the past 12 months: Yes. Aproximately how many cigarettes per day: 5. Cigars Per Day: 0. Hx Chewing Tobacco Use: No. Initiated information on smoking cessation: Yes. 'Breaking Loose' booklet given : 09/05/18. - Substance & Tx. History. Hx Alcohol Use: Yes. Hx Substance Use : Yes. Substance Use Type: Alcohol, Heroin. Hx Substance Use Treatment: Yes ( [facility] 07/23/18 to 07/26/18). - Substances Abused. Heroin. Route: Injection. Frequency: Daily. Amount used: 3 bags. Age of first use: 15. Date of Last Use: 09/04/18. Alcohol. Route: Oral. Frequency: Daily. Amount used: 1 pint of vodka,3 of 24 ozs of beer. Age of first use: 17. Date of Last Use: 09/04/18 Medical History: HTN, HepC+, Syncope history Psychiatric History: Jordy reports history of Bipolar Disorder, with most recent psychiatric hospitalization on about 5 years ago at [place], reports no medications taking prior to admission, reports unclear history of OD with psychiatric medications with suicidal ideation, denies suicidal, homicidal ideatiuon at this time, reports good rtesponse for his insomnia when he is taking Trazodone 100mg po qhs and asking to restart this medications during detox protocol. Physical/Sexual Abuse/Trauma History: Denies Additional Comment: Trazodone 100mg po qhs Mental Status Exam - Mental Status Exam Alert and Oriented to: Person Cognitive Function: Fair Patient Appearance: Unkempt Mood: Anxious Affect: Labile Patient Behavior: Distractible, Talkative, Cooperative Speech Pattern: Excessive Voice Loudness: Normal Thought Process: Circumstantial, Flight of Ideas Thought Disorder: Being Controlled Hallucinations: Denies Suicidal Ideation: Denies Homicidal Ideation: Denies Insight/Judgement: Fair Sleep: Difficulty falling asleep Appetite: Weight loss Muscle strength/Tone: Normal Gait/Station: Normal Additional Comments: Trazodone 100mg po qhs Psychiatric Findings - Problem List ([place] 1, 2,3) (1) Bipolar disorder Current Visit: Yes Status: Acute (2) Essential hypertension Current Visit: Yes Status: Acute (3) Hodgkin lymphoma Current Visit: Yes Status: Acute (4) Weight loss Current Visit: Yes Status: Acute (5) Alcohol dependence with uncomplicated withdrawal Current Visit: No Status: Acute (6) Alcohol withdrawal Current Visit: No Status: Acute (7) Opiate addiction Current Visit: No Status: Acute (8) Opiate withdrawal Current Visit: No Status: Acute (9) Pain, eye, left Current Visit: No Status: Acute (10) Substance induced mood disorder Current Visit: No Status: Acute (11) Uncontrolled hypertension Current Visit: No Status: Acute Comment: will start on meds now given BP 179 /113 right arm and 179/106 left arm (12) Asthma Current Visit: No Status: Chronic Qualifiers: Asthma severity: mild Asthma persistence: intermittent Asthma complication type: uncomplicated Qualified Code(s): J45.20 - Mild intermittent asthma, uncomplicated (13) Bipolar disorder Current Visit: No Status: Chronic Qualifiers: Active/Remission status: remission status unspecified Qualified Code(s): F31.9 - Bipolar disorder, unspecified (14) Chronic renal insufficiency, stage III (moderate) Current Visit: No Status: Chronic (15) Hepatitis C Current Visit: No Status: Chronic Qualifiers: Viral hepatitis chronicity: chronic Hepatic coma status: without hepatic coma Qualified Code(s): B18.2 - Chronic viral hepatitis C Comment: untreated (16) Nicotine dependence Current Visit: No Status: Chronic Qualifiers: Nicotine product type: cigarettes Substance use status: uncomplicated Qualified Code(s): F17.210 - Nicotine dependence, cigarettes, uncomplicated (17) Prerenal azotemia Current Visit: No Status: Chronic (18) Cognitive dysfunction in bipolar disorder Current Visit: Yes Status: Acute - Initial Treatment Plan Initial Treatment Plan: Trazodone 100mg po qhs
[2018-09-05] MEDS ORDERED: METHADONE HCL 10 MG TABLET (FOR DETOX USE ONLY) PO ONE ×2 (12:00→23:00)
[2018-09-05] MEDS: PRENATAL VITAMINS W/ FOLIC ACID TABLET (FP) PO SCH (12:00)
[2018-09-05] MEDS: cloNIDine HCL 0.1 MG TABLET PO SCH ×2 (12:03→22:45)
[2018-09-05] MEDS: chlordiazePOXIDE HCL 25 MG CAPSULE PO SCH ×3 (12:03→22:45)
[2018-09-05] MEDS: CYCLOBENZAPRINE HCL 10 MG TABLET (FP) PO PRN (12:03)
[2018-09-05] MEDS ORDERED: MELATONIN 5 MG TABLETS PO PRN (22:00)
[2018-09-05] MEDS: THIAMINE HCL 100 MG TABLET (FP) PO SCH (22:45)
[2018-09-05] MEDS: traZODone HCL 100 MG TABLET (FP) PO SCH (22:52)
[2018-09-06] MEDS: CYCLOBENZAPRINE HCL 10 MG TABLET (FP) PO PRN (02:50)
[2018-09-06] MEDS: chlordiazePOXIDE HCL 25 MG CAPSULE PO PRN (02:50)
[2018-09-06] MEDS: chlordiazePOXIDE HCL 25 MG CAPSULE PO SCH ×4 (06:03→23:19)
--- NOTE | 2018-09-06 07:32 | PN ---
[facility] Progress Note Note: Patient's blood pressure was B/P 191/98 Vital Signs Temperature 97.5 F L 09/06/18 06:51 Pulse Rate 51 L 09/06/18 06:51 Respiratory Rate 20 09/06/18 06:51 Blood Pressure 191/98 H 09/06/18 06:51 O2 Sat by Pulse Oximetry (%) Action: Clonindine 0.1mg tablet 0ral ordered
[2018-09-06] MEDS ORDERED: cloNIDine HCL 0.1 MG TABLET PO ONE (07:45)
[2018-09-06] MEDS ORDERED: METHADONE HCL 10 MG TABLET (FOR DETOX USE ONLY) PO SCH (10:00)
[2018-09-06 10:05] LABS: HEMATOCRIT 39.3 % (35.4-49); HEMOGLOBIN 13.2 GM/dL (11.7-16.9); MCHC 33.6 g/dl (32.0-35.9); MEAN CELL VOLUME 89.2 fl (80-96); RDW 14.3 % (11.9-15.9); WHITE BLOOD COUNT 4.1 K/mm3 (4.0-10.0)
[2018-09-06 10:06] LABS: ALBUMIN 3.8 g/dl (3.4-5.0); ALK PHOS 107 U/L (45-117); ANION GAP 6 MMOL/L (8-16); BILIRUBIN,TOTAL 0.6 mg/dL (0.2-1); BLOOD UREA NITROGEN 16 mg/dL (7-18); CALCIUM 8.8 mg/dL (8.5-10.1); CHLORIDE 104 mmol/L (98-107); CO2 27 mmol/L (21-32); GLUCOSE,RANDOM 78 mg/dL (74-106); POTASSIUM 4.2 mmol/L (3.5-5.1); SGOT/AST 21 U/L (15-37); SGPT/ALT 25 U/L (13-61); SODIUM 138 mmol/L (136-145); TOT PROT 7.7 g/dl (6.4-8.2)
[2018-09-06] MEDS: PRENATAL VITAMINS W/ FOLIC ACID TABLET (FP) PO SCH (11:09)
[2018-09-06] MEDS: cloNIDine HCL 0.1 MG TABLET PO SCH ×2 (11:09→23:19)
[2018-09-06] MEDS ORDERED: LISINOPRIL 10 MG TABLET (FP) PO ONE (12:32)
--- NOTE | 2018-09-06 12:37 | PN ---
[facility] CIWA - CIWA Score Nausea/Vomitin-No Nausea/No Vomiting Muscle Tremors: None Anxiety: 2 Agitation: 0-Normal Activity Paroxysmal Sweats: 3 Orientation: 2-Disoriented Date<2 days Tacttile Disturbances: 0-None Auditory Disturbances: 2-Mild Harshness/Frighten Visual Disturbances: 3-Moderate Sensitivity Headache: 0-None Present CIWA-Ar Total Score: 12 S COWS - Scale Resting Pulse: 0= [place] 80 or Below Sweatin= Chills/Flushing Restless Observation: 0= Sits Still Pupil Size: 0= Normal to Room Light Bone or Joint Aches: 0= None Runny Nose/ Eye Tearin= Runny Nose/Eyes GI Upset > 30mins: 1= Stomach Cramp Tremor Observation of Outstretched Hands: 0= None Yawning Observation: 1= 1-2x During Session Anxiety or Irritability: 2=Irritable/Anxious Goose Flesh Skin: 3=Piloerection COWS Score: 10 [facility] Progress Note (SOAP) Subjective: Stomach Cramping, Constipation, Interrupted Sleep, Sweating. Objective: PATIENT A & O X 2 (UNCERTAIN ABOUT CURRENT DAY / DATE). PATIENT OBSERVED AMBULATING ON UNIT. IN NO ACUTE DISTRESS. 09/06/18 12:35 Vital Signs Temperature 97.3 F L 09/06/18 09:53 Pulse Rate 62 09/06/18 09:53 Respiratory Rate 18 09/06/18 09:53 Blood Pressure 157/90 09/06/18 09:53 O2 Sat by Pulse Oximetry (%) Laboratory Tests 09/05/18 09/06/18 09/06/18 10:40 06:00 06:00 WBC 4.1 RBC 4.40 Hgb 13.2 Hct 39.3 MCV 89.2 MCH 30.0 MCHC 33.6 RDW 14.3 Plt Count No Result Required. Platelet Comment Mod plt clumping Sodium 138 Potassium 4.2 Chloride 104 Carbon Dioxide 27 Anion Gap 6 L BUN 16 Creatinine 1.0 Creat Clearance w eGFR > 60 Random Glucose 78 Calcium 8.8 Total Bilirubin 0.6 AST 21 ALT 25 Alkaline Phosphatase 107 Total Protein 7.7 Albumin 3.8 RPR Titer HIV 1&2 Antibody Screen Negative HIV P24 Antigen Negative 09/06/18 06:00 WBC RBC Hgb Hct MCV MCH MCHC RDW Plt Count Platelet Comment Sodium Potassium Chloride Carbon Dioxide Anion Gap BUN Creatinine Creat Clearance w eGFR Random Glucose Calcium Total Bilirubin AST ALT Alkaline Phosphatase Total Protein Albumin RPR Titer Nonreactive HIV 1&2 Antibody Screen HIV P24 Antigen LABS NOTED. Assessment: 09/06/18 12:35 WITHDRAWAL SYMPTOMS. HYPERTENSION. Plan: CONTINUE DETOX. INCREASE DAILY PO FLUID INTAKE. PRN MILK OF MAGNESIA FOR CONSTIPATION. LISINOPRIL, 10 MG PO DAILY FOR ELEVATED BLOOD PRESSURE. PATIENT DENEIS HISTORY OF PRESCRIBED MEDICATION FOR HYPERTENSION ON OUTPATIENT BASIS. HOWEVER, LISINOPRIL PRESCRIBED FOR ELEVATED BLOOD PRESSURE ON PREVIOUS DETOX ADMISSION IN July,.
[2018-09-06] MEDS: traZODone HCL 100 MG TABLET (FP) PO SCH (23:19)
[2018-09-06] MEDS: THIAMINE HCL 100 MG TABLET (FP) PO SCH (23:20)
[2018-09-07] MEDS: chlordiazePOXIDE HCL 25 MG CAPSULE PO SCH (05:53)
[2018-09-07] MEDS ORDERED: cloNIDine HCL 0.1 MG TABLET PO ONE (06:52)
--- NOTE | 2018-09-07 06:54 | PN ---
[facility] Progress Note Note: Patient's blood pressure this morning is B/P 195/109. Patient is asymptomatic Vital Signs Temperature 97.7 F 09/07/18 06:37 Pulse Rate 51 L 09/07/18 06:37 Respiratory Rate 18 09/07/18 06:37 Blood Pressure 195/109 H 09/07/18 06:37 O2 Sat by Pulse Oximetry (%) Action: Clonidine 0.1mg tablet 1 tablet oral ordered
[2018-09-07] MEDS ORDERED: LISINOPRIL 10 MG TABLET (FP) PO SCH (10:00)
[2018-09-07] MEDS: METHADONE HCL 5 MG TABLET (FOR DETOX USE ONLY) PO SCH (10:53)
[2018-09-07] MEDS: chlordiazePOXIDE 5 MG CAPSULE PO SCH ×3 (10:53→22:54)
[2018-09-07] MEDS: cloNIDine HCL 0.1 MG TABLET PO SCH ×2 (10:53→22:54)
[2018-09-07] MEDS: CYCLOBENZAPRINE HCL 10 MG TABLET (FP) PO PRN (10:54)
[2018-09-07] MEDS: PRENATAL VITAMINS W/ FOLIC ACID TABLET (FP) PO SCH (10:54)
[2018-09-07] MEDS ORDERED: LISINOPRIL 10 MG TABLET (FP) PO ONE (14:17)
[2018-09-07] MEDS: hydrOXYzine PAMOATE 25 MG CAPSULE (FP) PO PRN (14:57)
--- NOTE | 2018-09-07 15:23 | PN ---
[facility] CIWA - CIWA Score Nausea/Vomitin-No Nausea/No Vomiting Muscle Tremors: None Anxiety: 4-Mod. Anxious/Guarded Agitation: 3 Paroxysmal Sweats: 3 Orientation: 4Disoriented Place/Person Tacttile Disturbances: 2-Mild Itch/Numbness/Burn Auditory Disturbances: 0-None Visual Disturbances: 1-Very Mild Sensitivity Headache: 0-None Present CIWA-Ar Total Score: 17 [facility] COWS - Scale Resting Pulse: 0= [place] 80 or Below Sweatin= Chills/Flushing Restless Observation: 1= Difficult to Sit Still Pupil Size: 0= Normal to Room Light Bone or Joint Aches: 0= None Runny Nose/ Eye Tearin= Nasal Congestion GI Upset > 30mins: 1= Stomach Cramp Tremor Observation of Outstretched Hands: 0= None Yawning Observation: 1= 1-2x During Session Anxiety or Irritability: 2=Irritable/Anxious Goose Flesh Skin: 0=Smooth Skin COWS Score: 7 S Progress Note (SOAP) Subjective: Anxious, Interrupted Sleep, Constipation, Sweating. Objective: PATIENT A & O X 2 (UNCERTAIN ABOUT CURRENT LOCATION). PATIENT OBSERVED AMBULATING ON UNIT. IN NO ACUTE DISTRESS. PATIENT DENIES CHEST PAIN. 09/07/18 15:24 Vital Signs Temperature 98.4 F 09/07/18 13:03 Pulse Rate 76 09/07/18 13:03 Respiratory Rate 18 09/07/18 13:03 Blood Pressure 111/95 09/07/18 13:03 O2 Sat by Pulse Oximetry (%) Laboratory Tests 09/05/18 09/06/18 09/06/18 10:40 06:00 06:00 WBC 4.1 RBC 4.40 Hgb 13.2 Hct 39.3 MCV 89.2 MCH 30.0 MCHC 33.6 RDW 14.3 Plt Count No Result Required. Platelet Comment Mod plt clumping Sodium 138 Potassium 4.2 Chloride 104 Carbon Dioxide 27 Anion Gap 6 L BUN 16 Creatinine 1.0 Creat Clearance w eGFR > 60 Random Glucose 78 Calcium 8.8 Total Bilirubin 0.6 AST 21 ALT 25 Alkaline Phosphatase 107 Total Protein 7.7 Albumin 3.8 RPR Titer HIV 1&2 Antibody Screen Negative HIV P24 Antigen Negative 09/06/18 06:00 WBC RBC Hgb Hct MCV MCH MCHC RDW Plt Count Platelet Comment Sodium Potassium Chloride Carbon Dioxide Anion Gap BUN Creatinine Creat Clearance w eGFR Random Glucose Calcium Total Bilirubin AST ALT Alkaline Phosphatase Total Protein Albumin RPR Titer Nonreactive HIV 1&2 Antibody Screen HIV P24 Antigen LABS NOTED. 09/07/18 15:26 Assessment: 09/07/18 15:25 WITHDRAWAL SYMPTOMS. HYPERTENSION. Plan: CONTINUE DETOX. INCREASE DAILY DOSE OF LISINOPRIL TO 20 MG PO DAILY FOR PERSISTENTLY ELEVATED BP DESPITE TREATMENT.
[2018-09-07] MEDS: chlordiazePOXIDE HCL 25 MG CAPSULE PO PRN (18:55)
[2018-09-07] MEDS: traZODone HCL 100 MG TABLET (FP) PO SCH (22:54)
[2018-09-07] MEDS: THIAMINE HCL 100 MG TABLET (FP) PO SCH (22:54)
[2018-09-08] MEDS: CYCLOBENZAPRINE HCL 10 MG TABLET (FP) PO PRN (06:34)
[2018-09-08] MEDS: chlordiazePOXIDE 5 MG CAPSULE PO SCH (06:34)
[2018-09-08] MEDS: hydrOXYzine PAMOATE 25 MG CAPSULE (FP) PO PRN ×2 (06:35→12:33)
[2018-09-08] MEDS ORDERED: LISINOPRIL 20 MG TABLET (FP) PO ONE (06:57)
--- NOTE | 2018-09-08 07:35 | PN ---
[facility] Progress Note Note: SEEN FOR ASYMPTOMATIC HTN STAT DOSE OF LISINOPRIL 40 MG GIVEN HOLD 10 AM DOSE CONTINUE TO MONITOR CLINICALLY Vital Signs - 24 hr 09/07/18 09/07/18 09/07/18 07:57 09:17 13:03 Temperature 98.2 F 98.4 F Pulse Rate 59 L 59 L 76 Respiratory 18 20 18 Rate Blood Pressure 160/95 174/97 H 111/95 09/07/18 09/07/18 09/08/18 17:51 21:49 00:26 Temperature 98.2 F 98.2 F Pulse Rate 58 L 61 Respiratory 18 18 18 Rate Blood Pressure 174/94 H 192/80 H 09/08/18 09/08/18 03:30 07:07 Temperature 97.7 F Pulse Rate 58 L Respiratory 18 18 Rate Blood Pressure 206/121 H
[2018-09-08] MEDS ORDERED: LISINOPRIL 20 MG TABLET (FP) PO SCH (10:00)
[2018-09-08] MEDS: METHADONE HCL 5 MG TABLET (FOR DETOX USE ONLY) PO SCH (10:28)
[2018-09-08] MEDS: chlordiazePOXIDE HCL 10 MG CAPSULE PO SCH ×3 (10:28→22:16)
[2018-09-08] MEDS: cloNIDine HCL 0.1 MG TABLET PO SCH ×2 (10:28→22:16)
[2018-09-08] MEDS: PRENATAL VITAMINS W/ FOLIC ACID TABLET (FP) PO SCH (10:28)
--- NOTE | 2018-09-08 12:38 | PN ---
[facility] Progress Note (SOAP) Subjective: Sweating, Anxious, Interrupted Sleep. Objective: PATIENT A & O X 3, OBSERVED AMBULATING ON UNIT. IN NO ACUTE DISTRESS. 09/08/18 13:22 Vital Signs Temperature 97.9 F 09/08/18 13:10 Pulse Rate 66 09/08/18 13:10 Respiratory Rate 18 09/08/18 13:10 Blood Pressure 145/102 H 09/08/18 13:10 O2 Sat by Pulse Oximetry (%) Laboratory Tests 09/05/18 09/06/18 09/06/18 10:40 06:00 06:00 WBC 4.1 RBC 4.40 Hgb 13.2 Hct 39.3 MCV 89.2 MCH 30.0 MCHC 33.6 RDW 14.3 Plt Count No Result Required. Platelet Comment Mod plt clumping Sodium 138 Potassium 4.2 Chloride 104 Carbon Dioxide 27 Anion Gap 6 L BUN 16 Creatinine 1.0 Creat Clearance w eGFR > 60 Random Glucose 78 Calcium 8.8 Total Bilirubin 0.6 AST 21 ALT 25 Alkaline Phosphatase 107 Total Protein 7.7 Albumin 3.8 RPR Titer HIV 1&2 Antibody Screen Negative HIV P24 Antigen Negative 09/06/18 06:00 WBC RBC Hgb Hct MCV MCH MCHC RDW Plt Count Platelet Comment Sodium Potassium Chloride Carbon Dioxide Anion Gap BUN Creatinine Creat Clearance w eGFR Random Glucose Calcium Total Bilirubin AST ALT Alkaline Phosphatase Total Protein Albumin RPR Titer Nonreactive HIV 1&2 Antibody Screen HIV P24 Antigen LABS NOTED. Assessment: 09/08/18 13:23 WITHDRAWAL SYMPTOMS. Plan: CONTINUE DETOX. PATIENT TO BE SENT VIA AMBULANCE TO [facility] ER FOR PERSISTENTLY ELEVATED BP DESPITE TREATMENT. SEE FOLLOWING [facility] PROGRESS NOTE.
--- NOTE | 2018-09-08 13:37 | PN ---
[facility] Progress Note Note: AFTERNOON BP @ APPROX. 12:30 PM: 176/104, P: 63. LISINOPRIL, 40 MG PO ADMINISTERED EARLIER IN AM. OF YESTERDAY, PATIENT WAS PREVIOUSLY PRESCRIBED LISINOPRIL, 20 MG PO DAILY AND CLONIDINE, 0.1 MG PO BID FOR HYPERTENSION. ECG ORDERED. RESULT: 'NORMAL SINUS RHYTHM.' PATIENT REPORTS HISTORY OF HTN AND THAT HE HAS TAKEN MEDICATION FOR IT IN THE PAST, BUT HE IS UNSURE OF NAMES (MAYBE CLONIDINE AND A 'WATER PILL'). PATIENT WAS NOT CURRENTLY TAKING ANTI- HYPERTENSIVE MEDICATION AT TIME OF ADMISSION TO DETOX UNIT. PATIENT DENIES CHEST PAIN, PAIN RADIATING DOWN BILATERAL ARMS, AND DIZZINESS. REPORT GIVEN TO DR. KC AT [facility]. PATIENT TO BE TAKEN VIA AMBULANCE TO [facility] FOR FURTHER MEDICAL EVALUATION. Ilia MARTIN NP
--- NOTE | 2018-09-08 16:58 | EKG ---
Test Reason : Blood Pressure : / mmHG Vent. Rate : 063 BPM Atrial Rate : 063 BPM P-R Int : 146 ms QRS Dur : 100 ms QT Int : 398 ms P-R-T Axes : -11 058 053 degrees QTc Int : 407 ms NORMAL SINUS RHYTHM NORMAL ECG WHEN COMPARED WITH ECG OF 23-JUL-2018 12:57, NO SIGNIFICANT CHANGE WAS FOUND Confirmed by ANTHONY LEE MD ([id number]) on 09/08/2018 4:58:05 PM Referred By: Confirmed By:ANTHONY LEE MD
[2018-09-08] MEDS: traZODone HCL 100 MG TABLET (FP) PO SCH (22:16)
[2018-09-08] MEDS: THIAMINE HCL 100 MG TABLET (FP) PO SCH (22:16)
[2018-09-09] MEDS: chlordiazePOXIDE HCL 10 MG CAPSULE PO SCH (06:01)
--- NOTE | 2018-09-09 09:02 | PN ---
S Progress Note (SOAP) Subjective: alert,irritable,interrupted sleep Objective: 09/09/18 09:01 Vital Signs Temperature 97.5 F L 09/09/18 06:00 Pulse Rate 62 09/09/18 06:00 Respiratory Rate 18 09/09/18 06:00 Blood Pressure 195/98 H 09/09/18 06:00 O2 Sat by Pulse Oximetry (%) Assessment: 09/09/18 09:01withdrawal symptom Plan: continue detox,discharge in am
[2018-09-09] MEDS: hydrOXYzine PAMOATE 25 MG CAPSULE (FP) PO PRN (09:19)
[2018-09-09] MEDS: CYCLOBENZAPRINE HCL 10 MG TABLET (FP) PO PRN (09:19)
[2018-09-09] MEDS ORDERED: METHADONE HCL 10 MG TABLET (FOR DETOX USE ONLY) PO SCH (10:00)
[2018-09-09] MEDS: PRENATAL VITAMINS W/ FOLIC ACID TABLET (FP) PO SCH (10:08)
[2018-09-09] MEDS: cloNIDine HCL 0.1 MG TABLET PO SCH (10:08)
--- NOTE | 2018-09-10 00:04 | PN ---
[facility] Progress Note Note: Patient A&O. Refusing cloNidine, despite elevated blood pressure. Vital Signs 09/09/18 09/09/18 17:01 21:14 Temperature 97.9 F Pulse Rate 74 63 Respiratory 18 16 Rate Blood Pressure 160/99 217/112 H Met w/ patient and explained the risks of uncontrolled blood pressure, such as stroke or heart attack, and patient stated "I don't care if I have a stroke". Encourage continued efforts to support medication compliance. Patient is scheduled for discharge in am.
[2018-09-10] MEDS: traZODone HCL 100 MG TABLET (FP) PO SCH (00:27)
[2018-09-10] MEDS: THIAMINE HCL 100 MG TABLET (FP) PO SCH (00:27)
[2018-09-10] MEDS: cloNIDine HCL 0.1 MG TABLET PO SCH (00:27)
[2018-09-10] MEDS: hydrOXYzine PAMOATE 25 MG CAPSULE (FP) PO PRN (05:51)
[2018-09-10] MEDS: CYCLOBENZAPRINE HCL 10 MG TABLET (FP) PO PRN (05:51)
[2018-09-10] MEDS ORDERED: METHADONE HCL 5 MG TABLET (FOR DETOX USE ONLY) PO SCH (06:00)
[2018-09-10] MEDS ORDERED: cloNIDine HCL 0.1 MG TABLET PO ONE (06:53)
--- NOTE | 2018-09-10 07:22 | PN ---
S Progress Note Note: Patient's blood pressure is B/P 194/120. Patient is asymptomatic Vital Signs Temperature 96.8 F L 09/10/18 06:47 Pulse Rate 58 L 09/10/18 06:47 Respiratory Rate 18 09/10/18 06:47 Blood Pressure 194/120 H 09/10/18 06:47 O2 Sat by Pulse Oximetry (%) Action: Clonidine 0.1mg tablet oral ordered
[2018-09-10 09:24] VITALS: BP 149/90; PULSE 81; TEMP 97.5
--- NOTE | 2018-09-10 09:34 | PN ---
S Progress Note (SOAP) Subjective: verbalizes feeling good Objective: 09/10/18 09:31 A & O x 3 gait steady No distress noted Vital Signs Temperature 97.5 F L 09/10/18 09:24 Pulse Rate 81 09/10/18 09:24 Respiratory Rate 18 09/10/18 09:24 Blood Pressure 149/90 09/10/18 09:24 O2 Sat by Pulse Oximetry (%) Assessment: 09/10/18 09:34 detox completed Plan: for d/c
--- NOTE | 2018-09-10 09:39 | DS ---
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 Stated he will be fine Pertinent Past History: Hodgkin lymphoma HTN - Physical Exam Results Vital Signs: Vital Signs Temperature 97.5 F L 09/10/18 09:24 Pulse Rate 81 09/10/18 09:24 Respiratory Rate 18 09/10/18 09:24 Blood Pressure 149/90 09/10/18 09:24 O2 Sat by Pulse Oximetry (%) Pertinent Admission Physical Exam Findings: withdrawal sx - Treatment Hospital Course: Detox Protocol Followed, Detoxed Safely, Responded well, Discharged Condition Good - Medication Discharge Medications: Ambulatory Orders traZODone HCL [Desyrel -] 100 mg PO HS #30 tablet 09/05/18 Naloxone HCl [Narcan] 4 mg NS PRN #1 spray 09/10/18 - AMA Did Patient Leave Against Medical Advice: No
== END 2018-09-10 09:53 | disposition home or self-care (01) | DRG 773 ==
LOC: YASAS 08:41 → Y6N 10:32
PROVIDERS: ADMIT Surgery; ATTEND Surgery
PROC: HZ2ZZZZ Detoxification Services for Substance Abuse Treatment (ICD-10-PCS; principal; 2018-09-05)
DX: F11.23 Opioid dependence with withdrawal (principal); F10.230 Alcohol dependence with withdrawal, uncomplicated; F17.210 Nicotine dependence, cigarettes, uncomplicated; F31.9 Bipolar disorder, unspecified; F19.24 Other psychoactive substance dependence with psychoactive substance-induced mood disorder; F31.2 Bipolar disorder, current episode manic severe with psychotic features; I10 Essential (primary) hypertension; H57.12 Ocular pain, left eye; J45.20 Mild intermittent asthma, uncomplicated; N28.9 Disorder of kidney and ureter, unspecified; B18.2 Chronic viral hepatitis C; R79.89 Other specified abnormal findings of blood chemistry; Z85.71 Personal history of Hodgkin lymphoma; Z91.14 Patient's other noncompliance with medication regimen; Z91.5 Personal history of self-harm; Z59.0 Homelessness
CPT/HCPCS: 36415; 80053; 85027; 86593; 87389; 93005; 93010; J0735

== ENCOUNTER 2018-09-08 13:43 | Emergency (ER) | payer OTHER ==
[2018-09-08 13:58] VITALS: BMI 23.1
--- NOTE | 2018-09-08 14:56 | PDOC ---
History of Present Illness - General History Source: Patient Exam Limitations: No Limitations - History of Present Illness Initial Comments: 09/08/18 18:53 Patient is a 52-year-old male past medical history of uncontrolled hypertension , opioid abuse who presents to the ER today from [facility] for an elevated blood pressure reading. They report that patient is noncompliant with his medications. He took his blood pressure at [facility] and it was 200/100. He was given 40 mg of the sample at that time and sent to the ER for further evaluation. Patient has no complaints at this time denies headache, difficulty breathing, shortness of breath, chest pain, abdominal pain, some urgency and hematuria. <Kerri Hernandez - Last Filed: 09/08/18 18:52> <Rylee Crockett - Last Filed: 09/08/18 19:04> - General Chief Complaint: Blood Pressure Problem Stated Complaint: HYPERTENSION Time Seen by Provider: 09/08/18 14:11 Past History - Travel Traveled outside of the country in the last 30 days: No Close contact w/someone who was outside of country & ill: No - Past Medical History Anemia: No Asthma: No (DENIES) Cancer: Yes (hogkins lymphoma in remission) Cardiac Disorders: No CVA: No COPD: No CHF: No Dementia: No Diabetes: No GI Disorders: No Disorders: No HTN: Yes (non adherent to meds) Hypercholesterolemia: No Kidney Stones: No Liver Disease: No Seizures: No Thyroid Disease: No - Surgical History Abdominal Surgery: No Appendectomy: No Cardiac Surgery: No Cholecystectomy: No Lung Surgery: No Neurologic Surgery: No Orthopedic Surgery: No - Reproductive History Testicular Surgery: No - Suicide/Smoking/Psychosocial Hx Smoking History: Current some day smoker Have you smoked in the past 12 months: Yes Number of Cigarettes Smoked Daily: 5 Cigars Per Day: 0 Information on smoking cessation initiated: No 'Breaking Loose' booklet given: 09/05/18 Hx Alcohol Use: Yes Drug/Substance Use Hx: Yes Substance Use Type: Alcohol, Heroin Hx Substance Use Treatment: Yes ([facility] 07/23/18 to 07/26/18) <Kerri Hernandez - Last Filed: 09/08/18 18:52> <Rylee Crockett - Last Filed: 09/08/18 19:04> - Past Medical History Allergies/Adverse Reactions: Allergies Allergy/AdvReac Type Severity Reaction Status Date / Time No Known Allergies Allergy Verified 09/08/18 13:56 Home Medications: Ambulatory Orders traZODone HCL [Desyrel -] 100 mg PO HS #30 tablet 09/05/18 Review of Systems - Review of Systems Able to Perform ROS?: Yes Comments:: 09/08/18 17:00 CONSTITUTIONAL: Absent: fever, chills, diaphoresis, generalized weakness, malaise, loss of appetite HEENT: Absent: rhinorrhea, nasal congestion, throat pain, throat swelling, difficulty swallowing, mouth swelling, ear pain, eye pain, visual Changes CARDIOVASCULAR: Absent: chest pain, loss of consciousness, palpitations, irregular heart rate, peripheral edema RESPIRATORY: Absent: cough, shortness of breath, dyspnea with exertion, orthopnea, wheezing, stridor, hemoptysis GASTROINTESTINAL: Absent: abdominal pain, abdominal distension, nausea, vomiting, diarrhea, constipation, melena, hematochezia GENITOURINARY: Absent: dysuria, frequency, urgency, hesitancy, hematuria, flank pain, genital pain MUSCULOSKELETAL: Absent: myalgia, arthralgia, joint swelling SKIN: Absent: rash, itching, pallor HEMATOLOGIC/IMMUNOLOGIC: Absent: easy bleeding, easy bruising, lymphadenopathy, frequent infections ENDOCRINE: Absent: unexplained weight gain, unexplained weight loss, heat intolerance, cold intolerance NEUROLOGIC: Absent: headache, focal weakness or paresthesias, dizziness, unsteady gait, seizure, mental status changes, bladder or bowel incontinence PSYCHIATRIC: Absent: anxiety, depression, suicidal or homicidal ideation, hallucinations. Is the patient limited Irish proficient: No <Kerri Hernandez - Last Filed: 09/08/18 18:52> *Physical Exam - Vital Signs Last Vital Signs Temp Pulse Resp BP Pulse Ox 98.4 F 61 18 172/94 H 98 09/08/18 13:56 09/08/18 13:56 09/08/18 13:56 09/08/18 13:56 09/08/18 13:56 - Physical Exam Comments: 09/08/18 17:01 GENERAL: Well developed, well nourished. Awake and alert. No acute distress. HEENT: Normocephalic, atraumatic. PERRLA, EOMI. No conjunctival pallor. Sclera are non- icteric. Moist mucous membranes. Oropharynx is clear. NECK: Supple. Full ROM. No JVD. Carotid pulses 2+ and symmetric, without bruits. No thyromegaly. No lymphadenopathy. CARDIOVASCULAR: Regular rate and rhythm. No murmurs, rubs, or gallops. Distal pulses are 2+ and symmetric. PULMONARY: No evidence of respiratory distress. Lungs clear to auscultation bilaterally. No wheezing, rales or rhonchi. ABDOMINAL: Soft. Non-tender. Non-distended. No rebound or guarding. No organomegaly. Normoactive bowel sounds. MUSCULOSKELETAL Normal range of motion at all joints. No bony deformities or tenderness. No CVA tenderness. EXTREMITIES: No cyanosis. No clubbing. No edema. No calf tenderness. SKIN: Warm and dry. Normal capillary refill. No rashes. No jaundice. NEUROLOGICAL: Alert, awake, appropriate. Cranial nerves 2-12 intact. No deficits to light touch and temperature in face, upper extremities and lower extremities. No motor deficits in the in face, upper extremities and lower extremities. Normoreflexic in the upper and lower extremities. Normal speech. Toes are down- going bilaterally. Gait is normal without ataxia. PSYCHIATRIC: Cooperative. Good eye contact. Appropriate mood and affect. <Kerri Hernandez - Last Filed: 09/08/18 18:52> - Vital Signs Last Vital Signs Temp Pulse Resp BP Pulse Ox 98.6 F 58 L 16 175/102 H 98 09/08/18 17:15 09/08/18 17:15 09/08/18 17:15 09/08/18 17:15 09/08/18 17:15 <Rylee Crockett - Last Filed: 09/08/18 19:04> Moderate Sedation - Procedure Monitoring Vital Signs: Procedure Monitoring Vital Signs Temperature 98.4 F 09/08/18 13:56 Pulse Rate 61 09/08/18 13:56 Respiratory Rate 18 09/08/18 13:56 Blood Pressure 172/94 H 09/08/18 13:56 O2 Sat by Pulse Oximetry (%) 98 09/08/18 13:56 <Kerri Hernandez - Last Filed: 09/08/18 18:52> - Procedure Monitoring Vital Signs: Procedure Monitoring Vital Signs Temperature 98.6 F 02/28/19 17:15 Pulse Rate 58 L 09/08/18 17:15 Respiratory Rate 16 09/08/18 17:15 Blood Pressure 175/102 H 09/08/18 17:15 O2 Sat by Pulse Oximetry (%) 98 09/08/18 17:15 <Rylee Crockett - Last Filed: 09/08/18 19:04> ED Treatment Course - LABORATORY CBC & Chemistry Diagram: 09/08/18 15:45 09/08/18 15:45 <Kerri Hernandez - Last Filed: 09/08/18 18:52> - LABORATORY CBC & Chemistry Diagram: 09/08/18 15:45 09/08/18 15:45 - ADDITIONAL ORDERS Additional order review: Laboratory Results 09/08/18 15:45 Sodium 139 Potassium 4.3 Chloride 108 H Carbon Dioxide 27 Anion Gap 5 L BUN 23 H Creatinine 1.0 Creat Clearance w eGFR > 60 Random Glucose 90 Calcium 8.9 Total Bilirubin 0.2 AST 29 ALT 39 Alkaline Phosphatase 84 Total Protein 7.1 Albumin 3.4 09/08/18 15:45 RBC 4.18 MCV 90.1 MCHC 33.9 RDW 14.0 MPV 11.1 Neutrophils % 56.3 Lymphocytes % 27.5 Monocytes % 10.7 H Eosinophils % 4.4 Basophils % 1.1 - Medications Given in the ED: ED Medications Discontinued Medications Generic Name Dose Route Start Last Admin Trade Name Freq PRN Reason Stop Dose Admin Amlodipine Besylate 5 mg 09/08/18 15:45 09/08/18 15:54 Norvasc - PO 09/08/18 15:46 5 mg ONCE ONE Administration <Rylee Crockett - Last Filed: 09/08/18 19:04> Medical Decision Making - Medical Decision Making 09/08/18 18:54 Patient's 52-year-old male who presents to the ER for an episode of hypertension from [facility]. On exam patient is neurologically intact AAO 3 no gross deficits. EKG rate 58 bpm, normal sinus rhythm. Normal intervals, normal axis. No acute ST -T wave changes. Lab work is grossly normal. 5 mg of amlodipine given. Repeat blood pressure 170/90. Patient requesting discharge back to [facility]. Patient is a symptomatic at this time. We'll send back. I discussed the physical exam findings, ancillary test results and final diagnoses with the patient. I answered all of the patient's questions. The patient was satisfied with the care received and felt comfortable with the discharge plan and treatment plan. The Patient agrees to follow up with the primary care physician/specialist within 24-72 hours. Return precautions were given. <Kerri Hernandez - Last Filed: 09/08/18 18:52> - Medical Decision Making The patient was seen and evaluated in conjunction with midlevel provider under my direct supervision, ancillary studies were reviewed. I agree with the plan as outlined by LEIF Hernandez. HPI, workup/dispo as outlined. VS reviewed, wnl. EKG sinus. labs normal. UN unremarkable DC to [facility]. OP BP management and clinical recheck. will not start meds here , as asymptomatic, clinical recheck given his poor compliance. 09/08/18 19:03 <Rylee Crockett - Last Filed: 09/08/18 19:04> *DC/Admit/Observation/Transfer - Discharge Dispostion Decision to Admit order: No <Kerri Hernandez - Last Filed: 09/08/18 18:52> <Rylee Crockett - Last Filed: 09/08/18 19:04> Diagnosis at time of Disposition: Uncontrolled hypertension - Discharge Dispostion Disposition: TRANSFER ACUTE CARE/OTHER HOSP Condition at time of disposition: Stable - Referrals Referrals: Burak Jay MD [Staff Physician] - - Patient Instructions Printed Discharge Instructions: DI for High Blood Pressure Additional Instructions: You were evaluated for your high blood pressure today Your lab work was normal Please see a primary care doctor to get on a blood pressure medication You may return to detox Return to the ED for any new or worsening symptoms
[2018-09-08] MEDS ORDERED: amLODIPine BESYLATE 5 MG TABLET (FP) PO ONE (15:45)
[2018-09-08] MEDS ORDERED: amLODIPine BESYLATE 5 MG TABLET (FP) ONE (15:50)
[2018-09-08 16:08] LABS: BASO % 1.1 % (0-2.0); EOS % 4.4 % (0-4.5); HEMATOCRIT 37.7 % (35.4-49); HEMOGLOBIN 12.8 GM/dL (11.7-16.9); LYMPH % 27.5 % (8-40); MCH 30.6 pg (25.7-33.7); MCHC 33.9 g/dl (32.0-35.9); MEAN CELL VOLUME 90.1 fl (80-96); MEAN PLT VOLUME 11.1 fl (7.5-11.1); MONO % 10.7 % (3.8-10.2); NEUT % 56.3 % (42.8-82.8); PLATELET COUNT 120 K/MM3 (134-434); RBC 4.18 M/mm3 (4.00-5.60)
[2018-09-08 16:43] LABS: ALBUMIN 3.4 g/dl (3.4-5.0); ALK PHOS 84 U/L (45-117); ANION GAP 5 MMOL/L (8-16); BILIRUBIN,TOTAL 0.2 mg/dL (0.2-1); BLOOD UREA NITROGEN 23 mg/dL (7-18); CALCIUM 8.9 mg/dL (8.5-10.1); CHLORIDE 108 mmol/L (98-107); CO2 27 mmol/L (21-32); GLUCOSE,RANDOM 90 mg/dL (74-106); POTASSIUM 4.3 mmol/L (3.5-5.1); SGOT/AST 29 U/L (15-37); SGPT/ALT 39 U/L (13-61); SODIUM 139 mmol/L (136-145); TOT PROT 7.1 g/dl (6.4-8.2)
[2018-09-08 17:16] VITALS: BP 175/102; PULSE 58; TEMP 98.6
--- NOTE | 2018-09-09 10:31 | EKG ---
Test Reason : Blood Pressure : / mmHG Vent. Rate : 058 BPM Atrial Rate : 058 BPM P-R Int : 140 ms QRS Dur : 098 ms QT Int : 404 ms P-R-T Axes : -05 048 048 degrees QTc Int : 396 ms SINUS BRADYCARDIA NONSPECIFIC T WAVE ABNORMALITY ABNORMAL ECG WHEN COMPARED WITH ECG OF 08-SEP-2018 10:53, NO SIGNIFICANT CHANGE WAS FOUND Confirmed by MAGGIE NEWELL MD ([id number]) on 09/09/2018 10:30:43 AM Referred By: Confirmed By:MAGGIE NEWELL MD
== END 2018-09-08 20:00 | disposition short-term general hospital (02) ==
LOC: JER 13:43
DX: I10 Essential (primary) hypertension (principal); Z91.14 Patient's other noncompliance with medication regimen; F11.10 Opioid abuse, uncomplicated; F10.10 Alcohol abuse, uncomplicated; F17.200 Nicotine dependence, unspecified, uncomplicated; Z85.71 Personal history of Hodgkin lymphoma; Z59.0 Homelessness
CPT/HCPCS: 36415; 80053; 85025; 93005; 93010; 99282-25

== ENCOUNTER 2019-05-03 11:39 | Inpatient (IN) | payer OTHER ==
[2019-05-03 12:36] VITALS: BMI 24.3
--- NOTE | 2019-05-03 15:08 | HP ---
COWS - Scale Resting Pulse: 0= [place] 80 or Below Sweatin= Chills/Flushing Restless Observation: 1= Difficult to Sit Still Pupil Size: 0= Normal to Room Light Bone or Joint Aches: 2= Severe Diffuse Aches Runny Nose/ Eye Tearin= Runny Nose/Eyes GI Upset > 30mins: 1= Stomach Cramp Tremor Observation: 2= Slight Tremor Visible Yawning Observation: 2= >3x During Session Anxiety or Irritability: 2=Irritable/Anxious Goose Flesh Skin: 3=Piloerection COWS Score: 16 CIWA Score - Admission Criteria OASAS Guidelines: Admission for Medically Managed Detox: Requires at least one of the followin. CIWA greater than 12 2. Seizures within the past 24 hours 3. Delirium tremens within the past 24 hours 4. Hallucinations within the past 24 hours 5. Acute intervention needed for co occurring medical disorder 6. Acute intervention needed for co occurring psychiatric disorder 7. Severe withdrawal that cannot be handled at a lower level of care (continued vomiting, continued diarrhea, abnormal vital signs) requiring intravenous medication and/or fluids 8. Admitting History and Physical - Admission Chief Complaint: I am here for detox and rehab. History of Present Illness: pt is a 53yr old male with a history of heroin and cocaine dependence seeking detox for treatment. History Source: Patient Limitations to Obtaining History: No Limitations - Past Medical History Gastrointestinal: Yes: Cancer (lymphnode cancer; chemotherapy 1994) - Past Surgical History Past Surgical History: Yes: None - Smoking History Smoking history: Current some day smoker Have you smoked in the past 12 months: Yes Aproximately how many cigarettes per day: 5 - Alcohol/Substance Use Hx Alcohol Use: Yes History of Substance Use: reports: Cocaine, Heroin Date of Last Use: 05/02/19 - Social History Usual Living Arrangement: Yes: Alone History of Recent Travel: No Admission [facility] Chief Complaint: I am here for detox and rehab. Allergies/Adverse Reactions: Allergies Allergy/AdvReac Type Severity Reaction Status Date / Time No Known Allergies Allergy Verified 05/03/19 12:27 History of Present Illness: Pt is a 53yrold male with a history of heroin and cocaine dependence seeking detox for treatment. Exam Limitations: No Limitations - Ebola screening Have you traveled outside of the country in the last 21 days: No Have you had contact with anyone from an Ebola affected area: No Have you been sick,other than usual withdrawal symptoms: No Do you have a fever: No - Review of Systems Constitutional: Chills, Diaphoresis, Loss of Appetite, Night Sweats, Changes in sleep EENT: reports: No Symptoms Reported, Nose Congestion, Dental Problems (missing teeth), Other (cleft palate since born.) Respiratory: reports: No Symptoms reported Cardiac: reports: No Symptoms Reported GI: reports: Poor Appetite, Poor Fluid Intake : reports: No Symptoms Reported Musculoskeletal: reports: No Symptoms Reported Integumentary: reports: Lesions (noted to both lower legs) Neuro: reports: Tingling, Tremors Endocrine: reports: Excessive Sweating, Flushing Hematology: reports: No Symptoms Reported Psychiatric: reports: Judgement Intact, Mood/Affect Appropiate, Orientated x3, Agitated, Anxious Other Systems: Reviewed and Negative Patient History - Patient Medical History Hx Anemia: No Hx Asthma: No Hx Chronic Obstructive Pulmonary Disease (COPD): No Hx Cancer: Yes (hogkins lymphoma in remission) Hx Cardiac Disorders: No Hx Congestive Heart Failure: No Hx Hypertension: Yes (non adherent to meds) Hx Hypercholesterolemia: No Hx Pacemaker: No HX Cerebrovascular Accident: No Hx Seizures: No Hx Dementia: No Hx Diabetes: No Hx Gastrointestinal Disorders: No Hx Liver Disease: No Hx Genitourinary Disorders: No Hx Sexually Transmitted Disorders: No Hx Renal Disease (ESRD): No Hx Thyroid Disease: No Hx Human Immunodeficiency Virus (HIV): No (negative ) Hx Hepatitis C: Yes (not treated) Hx Depression: Yes (no meds) Hx Suicide Attempt: Yes (yes but does not remember when - tried to OD) Hx Bipolar Disorder: Yes Hx Schizophrenia: No - Patient Surgical History Past Surgical History: Yes Hx Neurologic Surgery: No Hx Cataract Extraction: No Hx Cardiac Surgery: No Hx Lung Surgery: No Hx Breast Surgery: No Hx Breast Biopsy: No Hx Abdominal Surgery: No Hx Appendectomy: No Hx Cholecystectomy: No Hx Genitourinary Surgery: No Hx Section: No Hx Orthopedic Surgery: No Other Surgical History: cleft palate repair as child Anesthesia Reaction: No - PPD History Previous Implant?: No Documented Results: Negative w/proof Date: 07/25/18 Results: 0 mm PPD to be Administered?: No - Reproductive History Patient is a Female of Child Bearing Age (11 -55 yrs old): No - Smoking Cessation Smoking history: Current some day smoker Have you smoked in the past 12 months: Yes Aproximately how many cigarettes per day: 5 Cigars Per Day: 0 Hx Chewing Tobacco Use: No Initiated information on smoking cessation: Yes 'Breaking Loose' booklet given: 05/03/19 - Substance & Tx. History Hx Alcohol Use: No Hx Substance Use: Yes Substance Use Type: Cocaine, Heroin Hx Substance Use Treatment: Yes ([facility] 2019) - Substances abused Alcohol Substance route: Oral Frequency: 3-6 times per week Amount used: 1 beer Age of first use: 17 Date of last use: 05/02/19 Heroin Substance route: Injection Frequency: Daily Amount used: 1 bundle Age of first use: 17 Date of last use: 05/02/19 Admission Physical Exam BHS - Vital Signs Vital Signs: Vital Signs - 24 hr 05/03/19 12:26 Temperature 98.2 F Pulse Rate 71 Respiratory 18 Rate Blood Pressure 168/99 - Physical General Appearance: Yes: Appropriately Dressed, Moderate Distress, Tremorous, Irritable, Sweating, Anxious HEENTM: Yes: Normal Voice, Nasal Congestion, Rhinorrhea Respiratory: Yes: Lungs Clear, Normal Breath Sounds, No Respiratory Distress Neck: Yes: No masses,lesions,Nodules Breast: Yes: Within Normal Limits Cardiology: Yes: Regular Rhythm, Regular Rate, S1, S2 Abdominal: Yes: Normal Bowel Sounds, Non Tender, Soft Genitourinary: Yes: Within Normal Limits Back: Yes: Normal Inspection Musculoskeletal: Yes: Within Normal Limits, full range of Motion Extremities: Yes: Normal Capillary Refill, Normal Inspection, Non-Tender, Swelling Neurological: Yes: Fully Oriented, Alert, Normal Response Integumentary: Yes: Normal Color, Diaphoresis, Track Gallagher Lymphatic: Yes: Within Normal Limits - Diagnostic (1) Bipolar disorder Current Visit: No Status: Acute (2) Cognitive dysfunction in bipolar disorder Current Visit: No Status: Acute (3) Essential hypertension Current Visit: No Status: Acute (4) Hodgkin lymphoma Current Visit: No Status: Chronic Qualifiers: Hodgkin lymphoma type: unspecified type (5) Opioid dependence with withdrawal Current Visit: Yes Status: Chronic (6) Substance induced mood disorder Current Visit: No Status: Acute (7) Asthma Current Visit: Yes Status: Chronic Qualifiers: Asthma severity: mild Asthma persistence: intermittent Asthma complication type: uncomplicated Qualified Code(s): J45.20 - Mild intermittent asthma, uncomplicated (8) Bipolar disorder Current Visit: No Status: Chronic Qualifiers: Active/Remission status: remission status unspecified Qualified Code(s): F31.9 - Bipolar disorder, unspecified (9) Cocaine dependence Current Visit: Yes Status: Chronic Qualifiers: Substance use status: uncomplicated Qualified Code(s): F14.20 - Cocaine dependence, uncomplicated (10) Depression Current Visit: No Status: Chronic (11) Hepatitis C Current Visit: Yes Status: Chronic Qualifiers: Viral hepatitis chronicity: chronic Hepatic coma status: without hepatic coma Qualified Code(s): B18.2 - Chronic viral hepatitis C Comment: untreated (12) History of corrected cleft lip and palate Current Visit: No Status: Chronic (13) Nicotine dependence Current Visit: Yes Status: Chronic Qualifiers: Nicotine product type: cigarettes Substance use status: uncomplicated Qualified Code(s): F17.210 - Nicotine dependence, cigarettes, uncomplicated Cleared for Admission BHS - Detox or Rehab S Level of Care: Medically Managed Detox Regimen/Protocol: Methadone Claeared for Rehab Admission: No Breathalyzer - Breathalyzer Breathalyzer: 0 Urine Drug Screen - Test Device Lot number: [id number] Expiration date: 12/09/20 - Control Is test valid?: Yes - Results Drug screen NEGATIVE: No Urine drug screen results: THC-Marijuana, ERICA-Cocaine, MOP-Opiates Inpatient Rehab Admission - Rehab Decision to Admit Inpatient rehab admission?: No
[2019-05-03] MEDS ORDERED: MENTHOL/PHENOL 1 EACH UD MM PRN (15:22)
[2019-05-03] MEDS ORDERED: IBUPROFEN 400 MG TABLET (FP) PO PRN (15:22)
[2019-05-03] MEDS ORDERED: ACETAMINOPHEN 325 MG TABLET (FP) PO PRN ×2 (15:22)
[2019-05-03] MEDS ORDERED: METHOCARBAMOL 500 MG TABLET PO PRN (15:22)
[2019-05-03] MEDS ORDERED: hydrOXYzine PAMOATE 25 MG CAPSULE (FP) PO PRN (15:22)
[2019-05-03] MEDS ORDERED: BISMUTH SUBSALICYLATE 524 MG/30 ML UD PO PRN (15:22)
[2019-05-03] MEDS ORDERED: MAGNESIUM HYDROX 2400MG/30ML ORAL SUSPENSION 30 ML CUP PO PRN (15:22)
[2019-05-03] MEDS ORDERED: MAGNESIUM CITRATE 300 ML BOTTLE PO PRN (15:22)
[2019-05-03] MEDS ORDERED: MAG HYDROX/AL HYDROX/SIMETH 30 ML UNIT-DOSE CUP PO PRN (15:22)
[2019-05-03] MEDS ORDERED: NICOTINE POLACRILEX 4 MG GUM BUC PRN (15:22)
[2019-05-03] MEDS ORDERED: ONDANSETRON *ODT* 4 MG TABLET SL PRN (15:22)
[2019-05-03] MEDS ORDERED: P-EPHED 60MG/TRIPROLIDI 2.5MG TABLET PO PRN (15:22)
[2019-05-03] MEDS ORDERED: METHADONE HCL 10 MG TABLET (FOR DETOX USE ONLY) PO ONE (16:15)
[2019-05-03] MEDS: diazePAM 5 MG TABLET PO PRN ×2 (17:07→22:37)
[2019-05-03] MEDS: cloNIDine HCL 0.1 MG TABLET PO PRN (17:07)
[2019-05-03] MEDS: MELATONIN 5 MG TABLETS PO PRN (22:35)
[2019-05-03] MEDS: THIAMINE HCL 100 MG TABLET (FP) PO SCH (22:35)
[2019-05-04] MEDS ORDERED: METHADONE HCL 5 MG TABLET (FOR DETOX USE ONLY) ONE (08:26)
[2019-05-04] MEDS ORDERED: METHADONE HCL 10 MG TABLET (FOR DETOX USE ONLY) ONE (08:26)
[2019-05-04] MEDS: NICOTINE 21 MG/24 HOURS TOPICAL PATCH TD SCH (09:31)
[2019-05-04] MEDS: PRENATAL VITAMINS W/ FOLIC ACID TABLET (FP) PO SCH (09:31)
[2019-05-04] MEDS: cloNIDine HCL 0.1 MG TABLET PO PRN (09:31)
[2019-05-04 09:58] LABS: HEMATOCRIT 33.7 % (35.4-49); HEMOGLOBIN 11.3 GM/dL (11.7-16.9); MCH 29.5 pg (25.7-33.7); MCHC 33.4 g/dl (32.0-35.9); MEAN CELL VOLUME 88.3 fl (80-96); MEAN PLT VOLUME 11.3 fl (7.5-11.1); PLATELET COUNT 124 K/MM3 (134-434); RBC 3.81 M/mm3 (4.00-5.60); RDW 13.4 % (11.9-15.9); WHITE BLOOD COUNT 3.8 K/mm3 (4.0-10.0)
[2019-05-04] MEDS ORDERED: METHADONE (DETOX) 20 MG, METHADONE (DETOX) 5 MG PO ONE (10:00)
[2019-05-04 10:11] LABS: ALBUMIN 3.2 g/dl (3.4-5.0); BILIRUBIN,TOTAL 0.5 mg/dL (0.2-1); BLOOD UREA NITROGEN 24.6 mg/dL (7-18); CALCIUM 8.8 mg/dL (8.5-10.1); POTASSIUM 3.8 mmol/L (3.5-5.1); TOT PROT 6.7 g/dl (6.4-8.2)
--- NOTE | 2019-05-04 13:56 | PN ---
BHS COWS - Scale Resting Pulse: 0= [place] 80 or Below Sweatin= Chills/Flushing Restless Observation: 0= Sits Still Pupil Size: 1= Pupils >than Normal Bone or Joint Aches: 1= Mild Discomfort Runny Nose/ Eye Tearin= Nasal Congestion (chronic nase bleed) GI Upset > 30mins: 1= Stomach Cramp Tremor Observation of Outstretched Hands: 2= Slight Tremor Visible Yawning Observation: 1= 1-2x During Session Anxiety or Irritability: 2=Irritable/Anxious Goose Flesh Skin: 3=Piloerection COWS Score: 13 S Progress Note (SOAP) Subjective: doing well with methadone detox regimen bp elevation with chronic nose bleed begin lisinipril 40 mg po daily with amlodipine 10 mg po daily Objective: 05/04/19 13:55 Vital Signs Temperature 97.5 F L 05/04/19 13:51 Pulse Rate 64 05/04/19 13:51 Respiratory Rate 18 05/04/19 13:51 Blood Pressure 150/80 05/04/19 13:51 O2 Sat by Pulse Oximetry (%) Laboratory Last Values WBC 3.8 K/mm3 (4.0-10.0) L 05/04/19 08:15 RBC 3.81 M/mm3 (4.00-5.60) L 05/04/19 08:15 Hgb 11.3 GM/dL (11.7-16.9) L 05/04/19 08:15 Hct 33.7 % (35.4-49) L 05/04/19 08:15 MCV 88.3 fl (80-96) 05/04/19 08:15 MCH 29.5 pg (25.7-33.7) 05/04/19 08:15 MCHC 33.4 g/dl (32.0-35.9) 05/04/19 08:15 RDW 13.4 % (11.9-15.9) 05/04/19 08:15 Plt Count 124 K/MM3 (134-434) L 05/04/19 08:15 MPV 11.3 fl (7.5-11.1) H 05/04/19 08:15 Sodium 137 mmol/L (136-145) 05/04/19 08:15 Potassium 3.8 mmol/L (3.5-5.1) 05/04/19 08:15 Chloride 104 mmol/L (98-107) 05/04/19 08:15 Carbon Dioxide 27 mmol/L (21-32) 05/04/19 08:15 Anion Gap 6 MMOL/L (8-16) L 05/04/19 08:15 BUN 24.6 mg/dL (7-18) H 05/04/19 08:15 Creatinine 1.0 mg/dL (0.55-1.3) 05/04/19 08:15 Est GFR (CKD-EPI)AfAm 100.55 05/04/19 08:15 Est GFR (CKD-EPI)NonAf 86.76 05/04/19 08:15 Random Glucose 118 mg/dL (74-106) H 05/04/19 08:15 Calcium 8.8 mg/dL (8.5-10.1) 05/04/19 08:15 Total Bilirubin 0.5 mg/dL (0.2-1) 05/04/19 08:15 AST 35 U/L (15-37) 05/04/19 08:15 ALT 28 U/L (13-61) 05/04/19 08:15 Alkaline Phosphatase 89 U/L (45-117) 05/04/19 08:15 Total Protein 6.7 g/dl (6.4-8.2) 05/04/19 08:15 Albumin 3.2 g/dl (3.4-5.0) L 05/04/19 08:15 RPR Titer Nonreactive (NONREACTIVE) 05/04/19 08:15 lab noted Assessment: 05/04/19 13:55 opiate withdrawal sx Plan: continue methadone detox regimen monitoring bp
[2019-05-04] MEDS: LISINOPRIL 20 MG TABLET (FP) PO SCH (14:12)
[2019-05-04] MEDS: amLODIPine BESYLATE 10 MG TABLET (FP) PO SCH (14:12)
[2019-05-04] MEDS: THIAMINE HCL 100 MG TABLET (FP) PO SCH (22:20)
[2019-05-05] MEDS ORDERED: METHADONE HCL 10 MG TABLET (FOR DETOX USE ONLY) PO ONE (10:00)
[2019-05-05] MEDS: amLODIPine BESYLATE 10 MG TABLET (FP) PO SCH (10:27)
[2019-05-05] MEDS: PRENATAL VITAMINS W/ FOLIC ACID TABLET (FP) PO SCH (10:27)
[2019-05-05] MEDS: LISINOPRIL 20 MG TABLET (FP) PO SCH (10:27)
[2019-05-05] MEDS: NICOTINE 21 MG/24 HOURS TOPICAL PATCH TD SCH (10:44)
[2019-05-05] MEDS: cloNIDine HCL 0.1 MG TABLET PO PRN (22:06)
[2019-05-05] MEDS: THIAMINE HCL 100 MG TABLET (FP) PO SCH (22:06)
[2019-05-05] MEDS: MELATONIN 5 MG TABLETS PO PRN (22:07)
[2019-05-06] MEDS ORDERED: METHADONE HCL 10 MG TABLET (FOR DETOX USE ONLY) ONE (09:22)
[2019-05-06] MEDS ORDERED: METHADONE HCL 5 MG TABLET (FOR DETOX USE ONLY) ONE (09:23)
[2019-05-06] MEDS ORDERED: METHADONE (DETOX) 10 MG, METHADONE (DETOX) 5 MG PO ONE (10:00)
[2019-05-06] MEDS: PRENATAL VITAMINS W/ FOLIC ACID TABLET (FP) PO SCH (10:09)
[2019-05-06] MEDS: diazePAM 5 MG TABLET PO PRN (10:10)
[2019-05-06] MEDS: amLODIPine BESYLATE 10 MG TABLET (FP) PO SCH (10:10)
[2019-05-06] MEDS: NICOTINE 21 MG/24 HOURS TOPICAL PATCH TD SCH (10:10)
[2019-05-06] MEDS: LISINOPRIL 20 MG TABLET (FP) PO SCH (10:10)
[2019-05-06] MEDS ORDERED: SODIUM CHLORIDE NASAL SPRAY 44 ML BOTTLE NS PRN (14:45)
[2019-05-06] MEDS ORDERED: BENZOCAINE 28 GM HEMORRHOIDAL OINTMENT PR PRN (14:46)
[2019-05-06] MEDS ORDERED: WITCH HAZEL 50% (TUCKS) 40 PAD/JAR PAD TP PRN (14:46)
--- NOTE | 2019-05-06 14:53 | PN ---
BHS COWS - Scale Resting Pulse: 0= [place] 80 or Below Sweatin= No chills or Flushing Restless Observation: 1= Difficult to Sit Still Pupil Size: 0= Normal to Room Light Bone or Joint Aches: 1= Mild Discomfort Runny Nose/ Eye Tearin= Nasal Congestion GI Upset > 30mins: 1= Stomach Cramp (Constipation.) Tremor Observation of Outstretched Hands: 0= None Yawning Observation: 1= 1-2x During Session Anxiety or Irritability: 2=Irritable/Anxious Goose Flesh Skin: 0=Smooth Skin COWS Score: 7 S Progress Note (SOAP) Subjective: Anxious, Constipation, Interrupted Sleep. Objective: PATIENT A & O X 2 (UNCERTAIN ABOUT CURRENT DAY/ DATE). PATIENT OBSERVED AMBULATING ON DETOX UNIT UNASSISTED. IN NO ACUTE DISTRESS. 05/06/19 14:48 Vital Signs Temperature 96.7 F L 05/06/19 09:43 Pulse Rate 68 05/06/19 09:43 Respiratory Rate 18 05/06/19 09:43 Blood Pressure 145/85 05/06/19 09:43 O2 Sat by Pulse Oximetry (%) Laboratory Tests 05/04/19 05/04/19 05/04/19 08:15 08:15 08:15 WBC 3.8 L RBC 3.81 L Hgb 11.3 L Hct 33.7 L MCV 88.3 MCH 29.5 MCHC 33.4 RDW 13.4 Plt Count 124 L MPV 11.3 H Sodium 137 Potassium 3.8 Chloride 104 Carbon Dioxide 27 Anion Gap 6 L BUN 24.6 H Creatinine 1.0 Est GFR (CKD-EPI)AfAm 100.55 Est GFR (CKD-EPI)NonAf 86.76 Random Glucose 118 H Calcium 8.8 Total Bilirubin 0.5 AST 35 ALT 28 Alkaline Phosphatase 89 Total Protein 6.7 Albumin 3.2 L RPR Titer Nonreactive LABS NOTED. PATIENT HAS HAD LOW WBC AND PLATELET LEVELS ON PREVIOUS ADMISSIONS. 05/06/19 14:56 Assessment: 05/06/19 14:49 WITHDRAWAL SYMPTOMS. PANCYTOPENIA. AZOTEMIA. 05/06/19 14:55 Plan: CONTINUE DETOX. INCREASE DAILY PO WATER INTAKE. COLACE PO BID FOR RELIEF OF CONSTIPATION. PATIENT IS CURRENTLY RECEIVING DAILY MVI CONTAINING B VITAMINS AND IRON WHILE ADMITTED FOR DETOX.
[2019-05-06] MEDS: MELATONIN 5 MG TABLETS PO PRN (22:18)
[2019-05-06] MEDS: THIAMINE HCL 100 MG TABLET (FP) PO SCH (22:18)
[2019-05-06] MEDS: DOCUSATE SODIUM 100 MG CAPSULE (FP) PO SCH (22:20)
[2019-05-07] MEDS ORDERED: METHADONE HCL 10 MG TABLET (FOR DETOX USE ONLY) PO ONE (10:00)
[2019-05-07] MEDS ORDERED: LISINOPRIL 20 MG TABLET (FP) PO SCH ×2 (10:29→22:00)
[2019-05-07] MEDS ORDERED: HYDROCHLOROTHIAZIDE 25 MG TABLET (FP) PO SCH (10:30)
[2019-05-07] MEDS: DOCUSATE SODIUM 100 MG CAPSULE (FP) PO SCH ×2 (10:35→22:24)
[2019-05-07] MEDS: PRENATAL VITAMINS W/ FOLIC ACID TABLET (FP) PO SCH (10:35)
--- NOTE | 2019-05-07 10:35 | PN ---
BHS COWS - Scale Resting Pulse: 0= [place] 80 or Below Sweatin= Chills/Flushing Restless Observation: 0= Sits Still Pupil Size: 0= Normal to Room Light Bone or Joint Aches: 1= Mild Discomfort Runny Nose/ Eye Tearin= Nasal Congestion GI Upset > 30mins: 0= None Tremor Observation of Outstretched Hands: 1= Tremor Danese, Not Seen Yawning Observation: 0= None Anxiety or Irritability: 1=Feels Anxious/Irritable Goose Flesh Skin: 0=Smooth Skin COWS Score: 5 BHS Progress Note (SOAP) Subjective: 53 years old male admitted on 05/03/19 for opiate withdrawal sx management treated with methadone detox regimen patient tolerate well at this time mild body ache sleep better at night Objective: 05/07/19 10:33 Vital Signs Temperature 98.7 F 05/07/19 09:10 Pulse Rate 73 05/07/19 09:10 Respiratory Rate 18 05/07/19 09:10 Blood Pressure 177/106 H 05/07/19 09:10 O2 Sat by Pulse Oximetry (%) Laboratory Last Values WBC 3.8 K/mm3 (4.0-10.0) L 05/04/19 08:15 RBC 3.81 M/mm3 (4.00-5.60) L 05/04/19 08:15 Hgb 11.3 GM/dL (11.7-16.9) L 05/04/19 08:15 Hct 33.7 % (35.4-49) L 05/04/19 08:15 MCV 88.3 fl (80-96) 05/04/19 08:15 MCH 29.5 pg (25.7-33.7) 05/04/19 08:15 MCHC 33.4 g/dl (32.0-35.9) 05/04/19 08:15 RDW 13.4 % (11.9-15.9) 05/04/19 08:15 Plt Count 124 K/MM3 (134-434) L 05/04/19 08:15 MPV 11.3 fl (7.5-11.1) H 05/04/19 08:15 Sodium 137 mmol/L (136-145) 05/04/19 08:15 Potassium 3.8 mmol/L (3.5-5.1) 05/04/19 08:15 Chloride 104 mmol/L (98-107) 05/04/19 08:15 Carbon Dioxide 27 mmol/L (21-32) 05/04/19 08:15 Anion Gap 6 MMOL/L (8-16) L 05/04/19 08:15 BUN 24.6 mg/dL (7-18) H 05/04/19 08:15 Creatinine 1.0 mg/dL (0.55-1.3) 05/04/19 08:15 Est GFR (CKD-EPI)AfAm 100.55 05/04/19 08:15 Est GFR (CKD-EPI)NonAf 86.76 05/04/19 08:15 Random Glucose 118 mg/dL (74-106) H 05/04/19 08:15 Calcium 8.8 mg/dL (8.5-10.1) 05/04/19 08:15 Total Bilirubin 0.5 mg/dL (0.2-1) 05/04/19 08:15 AST 35 U/L (15-37) 05/04/19 08:15 ALT 28 U/L (13-61) 05/04/19 08:15 Alkaline Phosphatase 89 U/L (45-117) 05/04/19 08:15 Total Protein 6.7 g/dl (6.4-8.2) 05/04/19 08:15 Albumin 3.2 g/dl (3.4-5.0) L 05/04/19 08:15 RPR Titer Nonreactive (NONREACTIVE) 05/04/19 08:15 lab noted long history of bp elevation treated with amlodipine and lisinorpil increase lisinopril 40 mg po to bid add hctz 25 mg po daily hold detox discharge for 05/08/19 for bp monitoring Assessment: 05/07/19 10:34 opiate withdrawal sx discuss medication assisted treatment program Plan: continue methadone detox regimen pick up driver narcan from pharmacy
[2019-05-07] MEDS: NICOTINE 21 MG/24 HOURS TOPICAL PATCH TD SCH (10:36)
[2019-05-07] MEDS: amLODIPine BESYLATE 10 MG TABLET (FP) PO SCH (10:36)
[2019-05-07] MEDS: LISINOPRIL 20 MG TABLET (FP) PO SCH (11:05)
--- NOTE | 2019-05-07 12:32 | PN ---
[facility] Progress Note Note: 53 years old male admitted on 05/03/19 for opiate withdrawal sx management treated with methadone detox regimen chronic hypertension treated with amlodipine and lisinopril and hctz patient has profound nose bleed no trouble breathing skin warm dry extremities full range of motion patient refuses to sqeeze the nose nor to bend to waist order oxymetazoline due to bleeding persists manual writer call ER for merocel tampon or nasal packing information provided to Dr Ashraf nurse informed nursing supervisor backfilling informed bp 159/90 at this time continue additional lisinopril and hctz
[2019-05-07] MEDS ORDERED: OXYMETAZOLINE 0.05% NASAL SOLUTION 15 ML BOTTLE NS SCH (22:00)
[2019-05-07] MEDS: THIAMINE HCL 100 MG TABLET (FP) PO SCH (22:24)
[2019-05-07] MEDS: MELATONIN 5 MG TABLETS PO PRN (22:25)
[2019-05-08] MEDS ORDERED: METHADONE HCL 5 MG TABLET (FOR DETOX USE ONLY) PO ONE (06:00)
[2019-05-08 09:22] VITALS: BP 144/90; PULSE 86; TEMP 97.8
--- NOTE | 2019-05-08 15:01 | DS ---
[facility] Detox Discharge Summary Admission Date: 05/03/19 Discharge Date: 05/08/19 - History Present History: Opioid Dependence Additional Comments: 53 yeas old male admitted on 05/03/19 for opiate withdrawal sx management treated with methadone detox regimen patient tolerated well patient is alert oriented x 3 cardiac S1S2 regular rate rhythm respiratory clear lung bilaterally on auscultation abdomen soft no rebound tenderness extremities full range of motion - Physical Exam Results Vital Signs: Vital Signs Temperature 97.8 F 05/08/19 09:22 Pulse Rate 86 05/08/19 09:22 Respiratory Rate 18 05/08/19 09:22 Blood Pressure 144/90 05/08/19 09:22 O2 Sat by Pulse Oximetry (%) Pertinent Admission Physical Exam Findings: opiate withdrawal sx Laboratory Last Values WBC 3.8 K/mm3 (4.0-10.0) L 05/04/19 08:15 RBC 3.81 M/mm3 (4.00-5.60) L 05/04/19 08:15 Hgb 11.3 GM/dL (11.7-16.9) L 05/04/19 08:15 Hct 33.7 % (35.4-49) L 05/04/19 08:15 MCV 88.3 fl (80-96) 05/04/19 08:15 MCH 29.5 pg (25.7-33.7) 05/04/19 08:15 MCHC 33.4 g/dl (32.0-35.9) 05/04/19 08:15 RDW 13.4 % (11.9-15.9) 05/04/19 08:15 Plt Count 124 K/MM3 (134-434) L 05/04/19 08:15 MPV 11.3 fl (7.5-11.1) H 05/04/19 08:15 Sodium 137 mmol/L (136-145) 05/04/19 08:15 Potassium 3.8 mmol/L (3.5-5.1) 05/04/19 08:15 Chloride 104 mmol/L (98-107) 05/04/19 08:15 Carbon Dioxide 27 mmol/L (21-32) 05/04/19 08:15 Anion Gap 6 MMOL/L (8-16) L 05/04/19 08:15 BUN 24.6 mg/dL (7-18) H 05/04/19 08:15 Creatinine 1.0 mg/dL (0.55-1.3) 05/04/19 08:15 Est GFR (CKD-EPI)AfAm 100.55 05/04/19 08:15 Est GFR (CKD-EPI)NonAf 86.76 05/04/19 08:15 Random Glucose 118 mg/dL (74-106) H 05/04/19 08:15 Calcium 8.8 mg/dL (8.5-10.1) 05/04/19 08:15 Total Bilirubin 0.5 mg/dL (0.2-1) 05/04/19 08:15 AST 35 U/L (15-37) 05/04/19 08:15 ALT 28 U/L (13-61) 05/04/19 08:15 Alkaline Phosphatase 89 U/L (45-117) 05/04/19 08:15 Total Protein 6.7 g/dl (6.4-8.2) 05/04/19 08:15 Albumin 3.2 g/dl (3.4-5.0) L 05/04/19 08:15 RPR Titer Nonreactive (NONREACTIVE) 05/04/19 08:15 lab noted - Treatment Hospital Course: Detox Protocol Followed, Detoxed Safely, Responded well, Discharged Condition Good, Rehab Referral Accepted Patient has Accepted [facility] - Medication Discharge Medications: Ambulatory Orders traZODone HCL [Desyrel -] 100 mg PO HS #30 tablet 09/05/18 Clonidine HCl 0.1 mg PO DAILY 05/03/19 Naloxone HCl [Narcan] 4 mg NS ASDIR PRN #1 spray 05/07/19 Amlodipine Besylate [Norvasc -] 10 mg PO DAILY #14 tablet 05/08/19 Hydrochlorothiazide [Hctz -] 25 mg PO DAILY #14 tablet 05/08/19 Lisinopril [Prinivil] 40 mg PO BID #30 tablet 05/08/19 - Diagnosis (1) Epistaxis Status: Chronic (2) Essential hypertension Status: Chronic (3) Substance induced mood disorder Status: Suspected (4) Asthma Status: Chronic Qualifiers: Asthma severity: mild Asthma persistence: intermittent Asthma complication type: uncomplicated Qualified Code(s): J45.20 - Mild intermittent asthma, uncomplicated (5) Nicotine dependence Status: Acute Qualifiers: Nicotine product type: cigarettes Substance use status: in withdrawal Qualified Code(s): F17.213 - Nicotine dependence, cigarettes, with withdrawal (6) Opioid dependence with withdrawal Status: Acute - AMA Did Patient Leave Against Medical Advice: No COWS (PN) - Opiate Withdrawal Resting Pulse: 1= [place] 81-100 Sweatin= Chills/Flushing Restless Observation: 0= Sits Still Pupil Size: 0= Normal to Room Light Bone or Joint Aches: 1= Mild Discomfort Runny Nose/ Eye Tearin= None GI Upset > 30mins: 0= None Tremor Observation of Outstretched Hands: 1= Tremor [place], Not Seen Yawning Observation: 0= None Anxiety or Irritability: 0= None Goose Flesh Skin: 0=Smooth Skin COWS Score: 4
== END 2019-05-08 09:20 | disposition home or self-care (01) | DRG 773 ==
LOC: YASAS 11:39 → Y3N 15:45
PROVIDERS: ADMIT Allergy & Immunology; ATTEND Allergy & Immunology
PROC: HZ2ZZZZ Detoxification Services for Substance Abuse Treatment (ICD-10-PCS; principal; 2019-05-03)
DX: F11.23 Opioid dependence with withdrawal (principal); F17.213 Nicotine dependence, cigarettes, with withdrawal; F19.24 Other psychoactive substance dependence with psychoactive substance-induced mood disorder; F31.9 Bipolar disorder, unspecified; I10 Essential (primary) hypertension; J45.20 Mild intermittent asthma, uncomplicated; R79.89 Other specified abnormal findings of blood chemistry; B18.2 Chronic viral hepatitis C; G31.84 Mild cognitive impairment of uncertain or unknown etiology; R04.0 Epistaxis; Z85.71 Personal history of Hodgkin lymphoma; Z91.14 Patient's other noncompliance with medication regimen; Z92.21 Personal history of antineoplastic chemotherapy; Z91.5 Personal history of self-harm; Z59.0 Homelessness
CPT/HCPCS: 36415; 80053; 85027; 86593; J0735

== ENCOUNTER 2019-05-07 13:50 | Emergency (ER) | payer OTHER ==
[2019-05-07 14:01] VITALS: TEMP 98.1; BMI 24.3
--- NOTE | 2019-05-07 14:29 | PDOC ---
History of Present Illness - History of Present Illness Initial Comments: 05/07/19 15:18 Pt is a 53 y/o M with a significant PMH of polysubstance abuse, HTN, Hep C, Hodgkin's Lymphoma, and asthma [facility]. Pt endorses that he has been suffering from a nose bleed for 8 days, prior to his admission to [facility] for Opiate abuse. Pt states he has never had a nose bleed before. Denies any trauma to the area or digital manipulation. PMH as above Social: Smokes 1/2 pack cigarettes per day, Consumes beer when he has money, Heroine, Cocaine SurgHx- Appendectomy(Pt reports), Cleft lip repair FH- Father HTN, DM, Mother Alzheimer's Disease <Marky Medrano - Last Filed: 05/08/19 08:57> <Rylee Crockett - Last Filed: 05/08/19 15:37> - General Chief Complaint: Nasal Bleeding Stated Complaint: HYPERTENSION Time Seen by Provider: 05/07/19 14:27 Past History - Past Medical History Anemia: No Asthma: No Cancer: Yes (hogkins lymphoma in remission) Cardiac Disorders: No CVA: No COPD: No CHF: No Dementia: No Diabetes: No GI Disorders: No Disorders: No HTN: Yes Hypercholesterolemia: No Kidney Stones: No Liver Disease: No Seizures: No Thyroid Disease: No - Surgical History Abdominal Surgery: No Appendectomy: No Cardiac Surgery: No Cholecystectomy: No Lung Surgery: No Neurologic Surgery: No Orthopedic Surgery: No - Reproductive History Testicular Surgery: No - Psycho Social/Smoking Cessation Hx Smoking History: Current every day smoker Have you smoked in the past 12 months: Yes Number of Cigarettes Smoked Daily: 5 Cigars Per Day: 0 Information on smoking cessation initiated: No 'Breaking Loose' booklet given: 05/03/19 Hx Alcohol Use: No Drug/Substance Use Hx: Yes Substance Use Type: Cocaine, Heroin Hx Substance Use Treatment: Yes <Marky Medrano - Last Filed: 05/08/19 08:57> <Rylee Crockett - Last Filed: 05/08/19 15:37> - Past Medical History Allergies/Adverse Reactions: Allergies Allergy/AdvReac Type Severity Reaction Status Date / Time No Known Allergies Allergy Verified 05/03/19 12:27 Home Medications: Ambulatory Orders traZODone HCL [Desyrel -] 100 mg PO HS #30 tablet 09/05/18 Clonidine HCl 0.1 mg PO DAILY 05/03/19 Naloxone HCl [Narcan] 4 mg NS ASDIR PRN #1 spray 05/07/19 Amlodipine Besylate [Norvasc -] 10 mg PO DAILY #14 tablet 05/08/19 Hydrochlorothiazide [Hctz -] 25 mg PO DAILY #14 tablet 05/08/19 Lisinopril [Prinivil] 40 mg PO BID #30 tablet 05/08/19 Review of Systems - Review of Systems Constitutional: No: Fever, Unintentional Wgt. Loss HEENTM: Yes: Nose Bleeding Respiratory: No: Shortness of Breath Cardiac (ROS): No: Chest Pain ABD/GI: No: Diarrhea, Nausea, Vomiting Neurological: No: Headache, Numbness, Weakness <Marky Medrano - Last Filed: 05/08/19 08:57> *Physical Exam - Vital Signs Last Vital Signs Temp Pulse Resp BP Pulse Ox 98.1 F 71 18 154/96 98 05/07/19 13:55 05/07/19 13:55 05/07/19 13:55 05/07/19 13:55 05/07/19 13:55 - Physical Exam General Appearance: Yes: Disheveled, Thin HEENT: positive: EOMI, Pharynx Normal, Other (Cleft Lip Surgical scar ) Neck: positive: Supple Respiratory/Chest: positive: Lungs Clear, Normal Breath Sounds Cardiovascular: positive: Regular Rate, S1, S2 Gastrointestinal/Abdominal: negative: Distended, Guarding, Tenderness Extremity: positive: Normal Inspection <Marky Medrano - Last Filed: 05/08/19 08:57> - Vital Signs Last Vital Signs Temp Pulse Resp BP Pulse Ox 98.1 F 71 18 154/96 98 05/07/19 13:55 05/07/19 13:55 05/07/19 13:55 05/07/19 13:55 05/07/19 13:55 <Rylee Crockett - Last Filed: 05/08/19 15:37> Procedures - Additional Procedures Additional Procedures: other (silver nitrate applied to bleeding area ) <Marky Medrano - Last Filed: 05/08/19 08:57> Medical Decision Making - Medical Decision Making Pt's Blood pressure on admission 177/106. Pressure now 150s/90s. Bleeding has stopped from nose. However, still erythematous oozing area in right nostril, silver nitrate applied to area. Dr Crockett at bedside. Called [facility], pt ready to be transferred back to [facility] for continued Detox treatment for opiate abuse. <Marky Medrano - Last Filed: 05/08/19 08:57> Discharge - Discharge Information Problems reviewed: Yes - Admission No <Marky Medrano - Last Filed: 05/08/19 08:57> <Rylee Crockett - Last Filed: 05/08/19 15:37> - Discharge Information Clinical Impression/Diagnosis: Epistaxis Condition: Improved Disposition: HOME - Patient Discharge Instructions Patient Printed Discharge Instructions: DI for Nosebleed
--- NOTE | 2019-05-07 15:08 | PDOC ---
Documentation entered by Ryan Craven SCRIBE, acting as scribe for Rylee Crockett MD. Rylee Crockett MD: This documentation has been prepared by the Herber enrique Daniel, SCRIBE, under my direction and personally reviewed by me in its entirety. I confirm that the documentation accurately reflects all work, treatment, procedures, and medical decision making performed by me. Attending Attestation - Resident Resident Name: Marky Medrano - ED Attending Attestation I have performed the following: I have examined & evaluated the patient, The case was reviewed & discussed with the resident, I agree w/resident's findings & plan - HPI HPI: 05/07/19 15:06 53-year-old male past medical history of uncontrolled hypertension, opioid abuse who presents to the ER today from [facility] with rt nare epistaxis x 8 days intermittently. - Physicial Exam PE: 05/07/19 15:06 Agree with the resident's HPI and PE as documented in the electronic medical record. NAD, NCAT, EOMI, PERRL. normal conjunctiva. rt nare on anterior septum with superficial area of erythema adjacent to opening , nonbleeding. no polyps. airway patent, normal phonation. neck supple. no respiratory distress. - Medical Decision Making 05/07/19 15:07 Vital Signs Temp Pulse Resp BP Pulse Ox 98.1 F 71 18 154/96 98 05/07/19 13:55 05/07/19 13:55 05/07/19 13:55 05/07/19 13:55 05/07/19 13:55 Vital signs reviewed within normal limits except for mild hypertension. Currently in part care for detox for opiate withdrawal symptoms. Right nare epistaxis is controlled here, area that is notable for etiology of the bleeding is identified on the right nare anterior septum. Cauterized at bedside with resident. Uncomplicated procedure. Monitored in the ED, no events. Will return back to [place] care and will communicate transfer back for detox.
[2019-05-07 17:43] VITALS: BP 159/87; PULSE 69
== END 2019-05-07 17:52 | disposition home or self-care (01) ==
LOC: JER 13:50
PROC: 093K7ZZ Control Bleeding in Nasal Mucosa and Soft Tissue, Via Natural or Artificial Opening (ICD-10-PCS; principal; 2019-05-07)
DX: R04.0 Epistaxis (principal); I10 Essential (primary) hypertension; B18.2 Chronic viral hepatitis C; J45.909 Unspecified asthma, uncomplicated; Z85.71 Personal history of Hodgkin lymphoma; F10.10 Alcohol abuse, uncomplicated; F11.10 Opioid abuse, uncomplicated; F14.10 Cocaine abuse, uncomplicated; F17.210 Nicotine dependence, cigarettes, uncomplicated; Z87.730 Personal history of (corrected) cleft lip and palate; Z59.0 Homelessness
CPT/HCPCS: 30901; 99283-25

== ENCOUNTER 2019-05-27 11:40 | Inpatient (IN) | payer OTHER ==
[2019-05-27 12:04] VITALS: BMI 25.1
--- NOTE | 2019-05-27 12:23 | HP ---
COWS - Scale Resting Pulse: 0= [place] 80 or Below Sweatin=Flushed/Facial Moisture Restless Observation: 1= Difficult to Sit Still Pupil Size: 0= Normal to Room Light Bone or Joint Aches: 2= Severe Diffuse Aches Runny Nose/ Eye Tearin= Runny Nose/Eyes GI Upset > 30mins: 2= Nausea/Diarrhea Tremor Observation: 2= Slight Tremor Visible Yawning Observation: 1= 1-2x During Session Anxiety or Irritability: 1=Feels Anxious/Irritable Goose Flesh Skin: 3=[place] COWS Score: 16 CIWA Score Nausea/Vomitin Muscle Tremors: 2 Anxiety: 2 Agitation: 2 Paroxysmal Sweats: 2 Orientation: 0-Oriented Tacttile Disturbances: 2-Mild Itch/Numbness/Burn Auditory Disturbances: 1-Very Mild Visual Disturbances: 1-Very Mild Sensitivity Headache: 2-Mild CIWA-Ar Total Score: 16 - Admission Criteria OASAS Guidelines: Admission for Medically Managed Detox: Requires at least one of the followin. CIWA greater than 12 2. Seizures within the past 24 hours 3. Delirium tremens within the past 24 hours 4. Hallucinations within the past 24 hours 5. Acute intervention needed for co occurring medical disorder 6. Acute intervention needed for co occurring psychiatric disorder 7. Severe withdrawal that cannot be handled at a lower level of care (continued vomiting, continued diarrhea, abnormal vital signs) requiring intravenous medication and/or fluids 8. Patient presents the following: CIWA greater than 12 Admission Criteria Met: Admission criteria met Admitting History and Physical - Past Medical History Gastrointestinal: Yes: Cancer (lymphnode cancer; chemotherapy 1994) - Past Surgical History Past Surgical History: Yes: None - Smoking History Smoking history: Current every day smoker Have you smoked in the past 12 months: Yes Aproximately how many cigarettes per day: 5 - Alcohol/Substance Use Hx Alcohol Use: No History of Substance Use: reports: Cocaine, Heroin Date of Last Use: 05/02/19 - Social History History of Recent Travel: No Admission ROS [facility] - [facility] Chief Complaint: I need detox Allergies/Adverse Reactions: Allergies Allergy/AdvReac Type Severity Reaction Status Date / Time No Known Allergies Allergy Verified 05/27/19 11:53 History of Present Illness: 53 year old man with poly-substance abuse presents for detox. His last detox was in April of this year. Patient has chronic hypertension but is non- compliant with treatment. He does not recollect the last time he took blood pressure medication; his BP at time of admission is quite elevated. Exam Limitations: No Limitations - Ebola screening Have you traveled outside of the country in the last 21 days: No (N) Have you had contact with anyone from an Ebola affected area: No Have you been sick,other than usual withdrawal symptoms: No Do you have a fever: No - Review of Systems Constitutional: Chills, Diaphoresis, Loss of Appetite EENT: reports: Nose Congestion Respiratory: reports: Cough Cardiac: reports: No Symptoms Reported GI: reports: Poor Appetite, Poor Fluid Intake, Abdominal cramping : reports: No Symptoms Reported Musculoskeletal: reports: Back Pain, Joint Pain, Muscle Pain, Muscle Weakness, Neck Pain Integumentary: reports: Lesions, Sweating Neuro: reports: Headache, Numbness, Tremors Endocrine: reports: No Symptoms Reported Hematology: reports: No Symptoms Reported Psychiatric: reports: Depressed Other Systems: Reviewed and Negative Patient History - Patient Medical History Hx Anemia: No Hx Asthma: No Hx Chronic Obstructive Pulmonary Disease (COPD): No Hx Cancer: Yes (hogkins lymphoma in remission) Hx Cardiac Disorders: No Hx Congestive Heart Failure: No Hx Hypertension: Yes (non compliant with treatment) Hx Hypercholesterolemia: No Hx Pacemaker: No HX Cerebrovascular Accident: No Hx Seizures: No Hx Dementia: No Hx Diabetes: No Hx Gastrointestinal Disorders: No Hx Liver Disease: No Hx Genitourinary Disorders: No Hx Sexually Transmitted Disorders: No Hx Renal Disease (ESRD): No Hx Thyroid Disease: No Hx Human Immunodeficiency Virus (HIV): No Hx Hepatitis C: Yes (not treated) Hx Depression: Yes Hx Suicide Attempt: No Hx Bipolar Disorder: Yes Hx Schizophrenia: No - Patient Surgical History Past Surgical History: Yes Hx Neurologic Surgery: No Hx Cataract Extraction: No Hx Cardiac Surgery: No Hx Lung Surgery: No Hx Breast Surgery: No Hx Breast Biopsy: No Hx Abdominal Surgery: No Hx Appendectomy: No Hx Cholecystectomy: No Hx Genitourinary Surgery: No Hx Section: No Hx Orthopedic Surgery: No Other Surgical History: cleft palate repair as a child Anesthesia Reaction: No - PPD History Previous Implant?: Yes Documented Results: Negative w/proof Implanted On Prior [facility] Admission?: Yes Date: 07/25/18 Results: 0 mm PPD to be Administered?: No - Smoking Cessation Smoking history: Current every day smoker Have you smoked in the past 12 months: Yes Aproximately how many cigarettes per day: 5 Cigars Per Day: 0 Hx Chewing Tobacco Use: No Initiated information on smoking cessation: Yes 'Breaking Loose' booklet given: 05/27/19 - Substances abused Alcohol Substance route: Oral Frequency: 3-6 times per week Amount used: 1 beer Age of first use: 17 Date of last use: 05/26/19 Heroin Substance route: Inhalation Frequency: Daily Amount used: 1 bundle Age of first use: 17 Date of last use: 05/26/19 Cocaine Substance route: Injection Frequency: Daily Amount used: 3-5 Age of first use: 17 Date of last use: 05/26/19 Admission Physical Exam BHS - Vital Signs Vital Signs: Vital Signs - 24 hr 05/27/19 11:58 Temperature 98.1 F Pulse Rate 71 Respiratory 14 Rate Blood Pressure 206/113 H - Physical General Appearance: Yes: No Apparent Distress HEENTM: Yes: Hearing grossly Normal, Normocephalic, Normal Voice Respiratory: Yes: Chest Non-Tender, Lungs Clear, No Respiratory Distress, No Accessory Muscle Use Neck: Yes: No masses,lesions,Nodules, Supple Breast: Yes: Breast Exam Deferred Cardiology: Yes: Regular Rhythm, Regular Rate, S1, S2 Abdominal: Yes: Normal Bowel Sounds, Soft Genitourinary: Yes: Within Normal Limits Back: Yes: Normal Inspection Musculoskeletal: Yes: Back pain, Muscle Pain, Muscle weakness Extremities: Yes: Tremors 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 intact, Fully Oriented, Normal Mood/Affect, Normal Response Integumentary: Yes: Moist, Track [place], Other (lesions) Lymphatic: Yes: Within Normal Limits - Diagnostic (1) Bipolar disorder Current Visit: Yes Status: Chronic Qualifiers: Active/Remission status: currently active (2) Nicotine dependence Current Visit: Yes Status: Acute Qualifiers: Nicotine product type: cigarettes Substance use status: uncomplicated Qualified Code(s): F17.210 - Nicotine dependence, cigarettes, uncomplicated (3) Opioid dependence with withdrawal Current Visit: Yes Status: Acute (4) Cocaine dependence Current Visit: Yes Status: Acute Qualifiers: Substance use status: uncomplicated Qualified Code(s): F14.20 - Cocaine dependence, uncomplicated (5) Depression Current Visit: Yes Status: Chronic (6) Essential hypertension Current Visit: Yes Status: Acute (7) Hepatitis C Current Visit: Yes Status: Chronic Qualifiers: Viral hepatitis chronicity: chronic Hepatic coma status: without hepatic coma Qualified Code(s): B18.2 - Chronic viral hepatitis C Comment: untreated (8) Substance induced mood disorder Current Visit: Yes Status: Chronic Cleared for Admission S - Detox or Rehab [facility] Level of Care: Medically Managed Detox Regimen/Protocol: Methadone/Valium Claeared for Rehab Admission: No Breathalyzer - Breathalyzer Breathalyzer: 0 Urine Drug Screen - Test Device Lot number: [id number] Expiration date: 02/08/21 - Control Is test valid?: Yes - Results Drug screen NEGATIVE: No Urine drug screen results: ERICA-Cocaine, FEN-Fentanyl, MOP-Opiates, BZO- Benzodiazepines Inpatient Rehab Admission - Rehab Decision to Admit Inpatient rehab admission?: No
[2019-05-27] MEDS ORDERED: cloNIDine HCL 0.1 MG TABLET PO PRN (12:31)
[2019-05-27] MEDS ORDERED: MAG HYDROX/AL HYDROX/SIMETH 30 ML UNIT-DOSE CUP PO PRN (12:31)
[2019-05-27] MEDS ORDERED: MELATONIN 5 MG TABLETS PO PRN (12:31)
[2019-05-27] MEDS ORDERED: MAGNESIUM CITRATE 300 ML BOTTLE PO PRN (12:31)
[2019-05-27] MEDS ORDERED: BISMUTH SUBSALICYLATE 524 MG/30 ML UD PO PRN (12:31)
[2019-05-27] MEDS ORDERED: MENTHOL/PHENOL 1 EACH UD MM PRN (12:31)
[2019-05-27] MEDS ORDERED: NICOTINE POLACRILEX 2 MG GUM BUC PRN (12:31)
[2019-05-27] MEDS ORDERED: NALOXONE HCL 0.4 MG/ML VIAL IM PRN (12:31)
[2019-05-27] MEDS ORDERED: ACETAMINOPHEN 325 MG TABLET (FP) PO PRN ×2 (12:31)
[2019-05-27] MEDS ORDERED: MAGNESIUM HYDROX 2400MG/30ML ORAL SUSPENSION 30 ML CUP PO PRN (12:31)
[2019-05-27] MEDS ORDERED: diazePAM 5 MG TABLET PO PRN (12:31)
[2019-05-27] MEDS ORDERED: METHOCARBAMOL 500 MG TABLET PO PRN (12:31)
[2019-05-27] MEDS ORDERED: IBUPROFEN 400 MG TABLET (FP) PO PRN (12:31)
[2019-05-27] MEDS ORDERED: METHADONE HCL 10 MG TABLET (FOR DETOX USE ONLY) PO ONE (13:00)
[2019-05-27] MEDS: diazePAM 5 MG TABLET PO SCH ×2 (13:52→22:40)
[2019-05-27] MEDS: amLODIPine BESYLATE 10 MG TABLET (FP) PO SCH (13:52)
[2019-05-27] MEDS: cloNIDine HCL 0.1 MG TABLET PO SCH (13:52)
[2019-05-27] MEDS: LISINOPRIL 20 MG TABLET (FP) PO SCH (22:40)
[2019-05-27] MEDS: THIAMINE HCL 100 MG TABLET (FP) PO SCH (22:40)
[2019-05-27] MEDS: traZODone HCL 100 MG TABLET (FP) PO SCH (22:40)
[2019-05-28] MEDS: diazePAM 5 MG TABLET PO SCH ×3 (05:55→22:45)
[2019-05-28] MEDS ORDERED: METHADONE HCL 5 MG TABLET (FOR DETOX USE ONLY) PO ONE (10:00)
[2019-05-28 11:05] LABS: HEMOGLOBIN 9.3 GM/dL (11.7-16.9); MCH 27.4 pg (25.7-33.7); MCHC 33.2 g/dl (32.0-35.9); MEAN CELL VOLUME 82.5 fl (80-96); PLATELET COUNT 193 K/MM3 (134-434); RBC 3.39 M/mm3 (4.00-5.60); RDW 14.8 % (11.9-15.9); WHITE BLOOD COUNT 4.5 K/mm3 (4.0-10.0)
[2019-05-28 11:08] LABS: ALBUMIN 3.4 g/dl (3.4-5.0); BILIRUBIN,TOTAL 0.6 mg/dL (0.2-1); BLOOD UREA NITROGEN 14.8 mg/dL (7-18); CALCIUM 8.9 mg/dL (8.5-10.1); POTASSIUM 3.7 mmol/L (3.5-5.1); TOT PROT 7.2 g/dl (6.4-8.2)
[2019-05-28] MEDS: PRENATAL VITAMINS W/ FOLIC ACID TABLET (FP) PO SCH (11:15)
[2019-05-28] MEDS: cloNIDine HCL 0.1 MG TABLET PO SCH (11:15)
[2019-05-28] MEDS: amLODIPine BESYLATE 10 MG TABLET (FP) PO SCH (11:16)
[2019-05-28] MEDS: LISINOPRIL 20 MG TABLET (FP) PO SCH ×2 (11:16→22:45)
[2019-05-28] MEDS: HYDROCHLOROTHIAZIDE 25 MG TABLET (FP) PO SCH (11:25)
--- NOTE | 2019-05-28 12:47 | PN ---
[facility] CIWA - CIWA Score Nausea/Vomitin-Mild Nausea/No Vomiting Muscle Tremors: 4-Moderate,w/Arms Extend Anxiety: 2 Agitation: 2 Paroxysmal Sweats: 3 Orientation: 0-Oriented Tacttile Disturbances: 0-None Auditory Disturbances: 0-None Visual Disturbances: 0-None Headache: 0-None Present CIWA-Ar Total Score: 12 S COWS - Scale Resting Pulse: 0= [place] 80 or Below Sweatin= Chills/Flushing Restless Observation: 0= Sits Still Pupil Size: 0= Normal to Room Light Bone or Joint Aches: 2= Severe Diffuse Aches Runny Nose/ Eye Tearin= Runny Nose/Eyes GI Upset > 30mins: 2= Nausea/Diarrhea Tremor Observation of Outstretched Hands: 2= Slight Tremor Visible Yawning Observation: 0= None Anxiety or Irritability: 2=Irritable/Anxious Goose Flesh Skin: 0=Smooth Skin COWS Score: 11 [facility] Progress Note (SOAP) Subjective: Feels ok Objective: 05/28/19 12:43 Last Vital Signs Temp Pulse Resp BP Pulse Ox 98.1 F 66 18 184/96 H 05/28/19 06:07 05/28/19 07:56 05/28/19 07:56 05/28/19 07:56 Elevated b/p: has htn, on medication Laboratory Tests 05/28/19 05/28/19 05/28/19 07:40 07:40 07:40 WBC 4.5 RBC 3.39 L Hgb 9.3 L Hct 28.0 L D MCV 82.5 MCH 27.4 MCHC 33.2 RDW 14.8 D Plt Count 193 D MPV 10.0 D Sodium 137 Potassium 3.7 Chloride 105 Carbon Dioxide 27 Anion Gap 5 L BUN 14.8 Creatinine 1.0 Est GFR (CKD-EPI)AfAm 100.55 Est GFR (CKD-EPI)NonAf 86.76 Random Glucose 107 H Calcium 8.9 Total Bilirubin 0.6 AST 31 ALT 24 Alkaline Phosphatase 117 Total Protein 7.2 Albumin 3.4 RPR Titer Nonreactive Labs reviewed: anemia noted Assessment: 05/28/19 12:45 Withdrawal sxs Noted with HTN and anemia Plan: Continue detox Encouraged PO water intake HTN: continue Anemia: most likely due to chronic alcoholism, encouraged abstinence and to complete detox and consider rehab, send iron studies and start iron supplement accordingly
--- NOTE | 2019-05-28 16:48 | EKG ---
Test Reason : Blood Pressure : / mmHG Vent. Rate : 069 BPM Atrial Rate : 069 BPM P-R Int : 138 ms QRS Dur : 104 ms QT Int : 390 ms P-R-T Axes : -21 057 058 degrees QTc Int : 417 ms NORMAL SINUS RHYTHM VOLTAGE CRITERIA FOR LEFT VENTRICULAR HYPERTROPHY NONSPECIFIC T WAVE ABNORMALITY ABNORMAL ECG WHEN COMPARED WITH ECG OF 08-SEP-2018 14:57, NO SIGNIFICANT CHANGE WAS FOUND Confirmed by MAGGIE NEWELL MD ([id number]) on 05/28/2019 4:47:48 PM Referred By: Confirmed By:MAGGIE NEWELL MD
[2019-05-28] MEDS: traZODone HCL 100 MG TABLET (FP) PO SCH (22:45)
[2019-05-28] MEDS: THIAMINE HCL 100 MG TABLET (FP) PO SCH (22:46)
[2019-05-29] MEDS: diazePAM 5 MG TABLET PO SCH ×2 (06:55→17:30)
[2019-05-29] MEDS ORDERED: METHADONE HCL 10 MG TABLET (FOR DETOX USE ONLY) PO ONE (10:00)
--- NOTE | 2019-05-29 10:40 | CONSULT ---
[facility] Psychiatric Consult - Data Date of interview: 05/29/19 Psychiatric History: Patient approached at bedside. 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 I see psychiatrist outside and in here and they not helping me"
[2019-05-29] MEDS: amLODIPine BESYLATE 10 MG TABLET (FP) PO SCH (10:57)
[2019-05-29] MEDS: HYDROCHLOROTHIAZIDE 25 MG TABLET (FP) PO SCH (10:57)
[2019-05-29] MEDS: PRENATAL VITAMINS W/ FOLIC ACID TABLET (FP) PO SCH (10:57)
[2019-05-29] MEDS: cloNIDine HCL 0.1 MG TABLET PO SCH (10:57)
[2019-05-29] MEDS: LISINOPRIL 20 MG TABLET (FP) PO SCH ×2 (10:57→22:50)
--- NOTE | 2019-05-29 11:03 | PN ---
[facility] CIWA - CIWA Score Nausea/Vomitin-Mild Nausea/No Vomiting Muscle Tremors: 1-None Visible, but [place] Anxiety: 2 Agitation: 2 Paroxysmal Sweats: No Perspiration Orientation: 0-Oriented Tacttile Disturbances: 1-Very Mild Itch/Numbness Auditory Disturbances: 0-None Visual Disturbances: 0-None Headache: 1-Very Mild CIWA-Ar Total Score: 8 [facility] COWS - Scale Resting Pulse: 0= [place] 80 or Below Sweatin= Chills/Flushing Restless Observation: 1= Difficult to Sit Still Pupil Size: 1= Pupils >than Normal Bone or Joint Aches: 1= Mild Discomfort Runny Nose/ Eye Tearin= Nasal Congestion GI Upset > 30mins: 1= Stomach Cramp Tremor Observation of Outstretched Hands: 1= Tremor [place], Not Seen Yawning Observation: 1= 1-2x During Session Anxiety or Irritability: 2=Irritable/Anxious Goose Flesh Skin: 0=Smooth Skin COWS Score: 10 S Progress Note (SOAP) Subjective: alert,irritable,anxious,interrupted sleep,pain in the body and back Objective: 05/29/19 11:01 Vital Signs Temperature 97.0 F L 05/29/19 09:21 Pulse Rate 76 05/29/19 09:21 Respiratory Rate 18 05/29/19 09:21 Blood Pressure 119/80 05/29/19 09:21 O2 Sat by Pulse Oximetry (%) Assessment: 05/29/19 11:01 withdrawal symptom Plan: continue detox methadone and valium regimen,,anemia,ferrous sulfate 325 mgs po bid,
[2019-05-29] MEDS: FERROUS SO4 325 MG TABLET (FP) PO SCH (17:30)
[2019-05-29] MEDS: traZODone HCL 100 MG TABLET (FP) PO SCH (22:50)
[2019-05-29] MEDS: THIAMINE HCL 100 MG TABLET (FP) PO SCH (22:50)
[2019-05-30] MEDS ORDERED: diazePAM 5 MG TABLET PO ONE (06:00)
[2019-05-30] MEDS ORDERED: METHADONE HCL 5 MG TABLET (FOR DETOX USE ONLY) PO ONE (06:00)
--- NOTE | 2019-05-30 10:14 | PN ---
S CIWA - CIWA Score Nausea/Vomitin-No Nausea/No Vomiting Muscle Tremors: 1-None Visible, but [place] Anxiety: 2 Agitation: 2 Paroxysmal Sweats: No Perspiration Orientation: 0-Oriented Tacttile Disturbances: 1-Very Mild Itch/Numbness Auditory Disturbances: 0-None Visual Disturbances: 0-None Headache: 2-Mild CIWA-Ar Total Score: 8 [facility] Progress Note (SOAP) Subjective: alert,irritable,anxious,interrupted sleep,pain in the body Objective: 05/30/19 10:13 Vital Signs Temperature 98.2 F 05/30/19 06:42 Pulse Rate 59 L 05/30/19 06:42 Respiratory Rate 18 05/30/19 06:42 Blood Pressure 169/89 05/30/19 06:42 O2 Sat by Pulse Oximetry (%) Assessment: 05/30/19 10:13 withdrawal symptom Plan: continue detox,valium regimen,discharge in am
[2019-05-30 10:17] VITALS: BP 141/99; PULSE 68; TEMP 97.3
[2019-05-30] MEDS: cloNIDine HCL 0.1 MG TABLET PO SCH (10:52)
[2019-05-30] MEDS: FERROUS SO4 325 MG TABLET (FP) PO SCH (10:52)
[2019-05-30] MEDS: amLODIPine BESYLATE 10 MG TABLET (FP) PO SCH (10:52)
[2019-05-30] MEDS: LISINOPRIL 20 MG TABLET (FP) PO SCH (10:52)
[2019-05-30] MEDS: HYDROCHLOROTHIAZIDE 25 MG TABLET (FP) PO SCH (10:52)
[2019-05-30] MEDS: PRENATAL VITAMINS W/ FOLIC ACID TABLET (FP) PO SCH (10:52)
--- NOTE | 2019-05-30 11:02 | PN ---
[facility] Progress Note Note: pt refused all his detox medication this am. Pt is was asked if there is anything we can assist, however, pt starting cursing and stating i need to leave. Pt was told of the risk of relapse, seizures, OD, DT and or loss, however, pt chose to sign out AMA.
--- NOTE | 2019-05-30 11:06 | DS ---
[facility] Detox Discharge Summary Admission Date: 05/27/19 - History Present History: Alcohol Dependence, Cocaine Dependence, Opioid Dependence - Physical Exam Results Vital Signs: Vital Signs Temperature 97.3 F L 05/30/19 10:16 Pulse Rate 68 05/30/19 10:16 Respiratory Rate 18 05/30/19 10:16 Blood Pressure 141/99 05/30/19 10:16 O2 Sat by Pulse Oximetry (%) Pertinent Admission Physical Exam Findings: pt arrived in withdrawals Vital Signs Temperature 97.3 F L 05/30/19 10:16 Pulse Rate 68 05/30/19 10:16 Respiratory Rate 18 05/30/19 10:16 Blood Pressure 141/99 05/30/19 10:16 O2 Sat by Pulse Oximetry (%) Laboratory Tests 05/28/19 05/28/19 05/28/19 07:40 07:40 07:40 WBC 4.5 RBC 3.39 L Hgb 9.3 L Hct 28.0 L D MCV 82.5 MCH 27.4 MCHC 33.2 RDW 14.8 D Plt Count 193 D MPV 10.0 D Sodium 137 Potassium 3.7 Chloride 105 Carbon Dioxide 27 Anion Gap 5 L BUN 14.8 Creatinine 1.0 Est GFR (CKD-EPI)AfAm 100.55 Est GFR (CKD-EPI)NonAf 86.76 Random Glucose 107 H Calcium 8.9 Iron 17 L TIBC 381 Iron Saturation 4 L Unsaturated IBC 364 H Ferritin 4.8 L Total Bilirubin 0.6 AST 31 ALT 24 Alkaline Phosphatase 117 Total Protein 7.2 Albumin 3.4 Vitamin B12 265 Serum Folate 12 RPR Titer Nonreactive 05/29/19 08:15 WBC RBC Hgb Hct MCV MCH MCHC RDW Plt Count MPV Sodium Potassium Chloride Carbon Dioxide Anion Gap BUN Creatinine Est GFR (CKD-EPI)AfAm Est GFR (CKD-EPI)NonAf Random Glucose Calcium Iron Cancelled TIBC Cancelled Iron Saturation Cancelled Unsaturated IBC Cancelled Ferritin Cancelled Total Bilirubin AST ALT Alkaline Phosphatase Total Protein Albumin Vitamin B12 Cancelled Serum Folate Cancelled RPR Titer today pt is irritable, agitation and refusing all medication pt chose to sign out AMA. - Treatment Patient has Accepted a Rehab Referral to: [facility] provided - Medication Discharge Medications: Ambulatory Orders traZODone HCL [Desyrel -] 100 mg PO HS #30 tablet 09/05/18 Clonidine HCl 0.1 mg PO DAILY 05/03/19 Naloxone HCl [Narcan] 4 mg NS ASDIR PRN #1 spray 05/07/19 Amlodipine Besylate [Norvasc -] 10 mg PO DAILY #14 tablet 05/08/19 Hydrochlorothiazide [Hctz -] 25 mg PO DAILY #14 tablet 05/08/19 Lisinopril [Prinivil] 40 mg PO BID #30 tablet 05/08/19 - Diagnosis (1) Cocaine dependence Current Visit: Yes Status: Chronic Qualifiers: Substance use status: uncomplicated Qualified Code(s): F14.20 - Cocaine dependence, uncomplicated (2) Essential hypertension Current Visit: Yes Status: Acute (3) Nicotine dependence Current Visit: Yes Status: Acute Qualifiers: Nicotine product type: cigarettes Substance use status: uncomplicated Qualified Code(s): F17.210 - Nicotine dependence, cigarettes, uncomplicated (4) Opioid dependence with withdrawal Current Visit: Yes Status: Acute (5) Bipolar disorder Current Visit: Yes Status: Chronic Qualifiers: Active/Remission status: currently active (6) Depression Current Visit: Yes Status: Chronic (7) Hepatitis C Current Visit: Yes Status: Chronic Qualifiers: Viral hepatitis chronicity: chronic Hepatic coma status: without hepatic coma Qualified Code(s): B18.2 - Chronic viral hepatitis C (8) Substance induced mood disorder Current Visit: Yes Status: Chronic (9) Cognitive dysfunction in bipolar disorder Current Visit: No Status: Acute (10) Asthma Current Visit: No Status: Chronic Qualifiers: Asthma severity: mild Asthma persistence: intermittent Asthma complication type: uncomplicated Qualified Code(s): J45.20 - Mild intermittent asthma, uncomplicated (11) Bipolar disorder Current Visit: No Status: Chronic Qualifiers: Active/Remission status: remission status unspecified Qualified Code(s): F31.9 - Bipolar disorder, unspecified (12) History of corrected cleft lip and palate Current Visit: No Status: Chronic (13) Hodgkin lymphoma Current Visit: No Status: Chronic Qualifiers: Hodgkin lymphoma type: unspecified type - AMA Did Patient Leave Against Medical Advice: Yes
== END 2019-05-30 11:10 | disposition left against medical advice (07) | DRG 770 ==
LOC: YASAS 11:40 → Y6N 12:34
PROVIDERS: ADMIT Allergy & Immunology; ATTEND Allergy & Immunology
PROC: HZ2ZZZZ Detoxification Services for Substance Abuse Treatment (ICD-10-PCS; principal; 2019-05-27)
DX: F11.23 Opioid dependence with withdrawal (principal); F14.20 Cocaine dependence, uncomplicated; F17.210 Nicotine dependence, cigarettes, uncomplicated; F31.9 Bipolar disorder, unspecified; F19.24 Other psychoactive substance dependence with psychoactive substance-induced mood disorder; I10 Essential (primary) hypertension; B18.2 Chronic viral hepatitis C; G31.84 Mild cognitive impairment of uncertain or unknown etiology; J45.20 Mild intermittent asthma, uncomplicated; C81.70 Other Hodgkin lymphoma, unspecified site; Z91.14 Patient's other noncompliance with medication regimen; Z92.21 Personal history of antineoplastic chemotherapy; Z59.0 Homelessness
CPT/HCPCS: 36415; 80053; 82607; 82728; 82746; 83540; 83550; 85027; 86593; 93005; 93010; J0735

== ENCOUNTER 2019-06-28 11:39 | Inpatient (IN) | payer OTHER ==
[2019-06-28 12:07] VITALS: BMI 23.9
--- NOTE | 2019-06-28 14:06 | HP ---
COWS - Scale Resting Pulse: 0= [place] 80 or Below Sweatin=Flushed/Facial Moisture Restless Observation: 1= Difficult to Sit Still Pupil Size: 1= Pupils >than Normal Bone or Joint Aches: 2= Severe Diffuse Aches Runny Nose/ Eye Tearin= Nasal Congestion GI Upset > 30mins: 1= Stomach Cramp Tremor Observation: 2= Slight Tremor Visible Yawning Observation: 1= 1-2x During Session Anxiety or Irritability: 1=Feels Anxious/Irritable Goose Flesh Skin: 0=Smooth Skin COWS Score: 12 CIWA Score Nausea/Vomitin - Admission Criteria [facility] Guidelines: Admission for Medically Managed Detox: Requires at least one of the followin. CIWA greater than 12 2. Seizures within the past 24 hours 3. Delirium tremens within the past 24 hours 4. Hallucinations within the past 24 hours 5. Acute intervention needed for co occurring medical disorder 6. Acute intervention needed for co occurring psychiatric disorder 7. Severe withdrawal that cannot be handled at a lower level of care (continued vomiting, continued diarrhea, abnormal vital signs) requiring intravenous medication and/or fluids 8. Admitting History and Physical - Admission History of Present Illness: 53 year old man with poly-substance abuse presents for detox. His last detox was in May of this year. Patient has chronic hypertension but is non- compliant with treatment. He only gets medication for blood pressure when he is in detox. He uses about 5 bags of cocaine daily. He completed detox in 05/2019 and then after discharged quickly relapsed.He is smoking 4-5 cigg per day. He is using 7 bags of heroin daily, never overdosed. He is drinking 7 beers every day. Denies blackouts or seizures. He is homeless and has very poor support systems in place. He has been in methadone program and but left 15 years ago. Since then his situation has deteriorated rapidly. He is not in the care home system. PMH: HTN untreated. and Hodgkin's Lymphoma in 1994. Psych: Bipolar Disorder on no meds He has no primary care provider. History Source: Patient Limitations to Obtaining History: No Limitations - Past Medical History Cardiovascular: Yes: HTN Gastrointestinal: Yes: Cancer (lymphnode cancer; chemotherapy 1994) - Past Surgical History Past Surgical History: Yes: None - Smoking History Smoking history: Current every day smoker Have you smoked in the past 12 months: Yes Aproximately how many cigarettes per day: 5 - Alcohol/Substance Use Hx Alcohol Use: No History of Substance Use: reports: Cocaine, Heroin Date of Last Use: 05/02/19 - Social History History of Recent Travel: No Admission [facility] Allergies/Adverse Reactions: Allergies Allergy/AdvReac Type Severity Reaction Status Date / Time No Known Allergies Allergy Verified 06/28/19 12:00 Exam Limitations: No Limitations - Ebola screening Have you traveled outside of the country in the last 21 days: No (N) Have you had contact with anyone from an Ebola affected area: No Have you been sick,other than usual withdrawal symptoms: No Do you have a fever: No - Review of Systems Constitutional: Chills, Diaphoresis, Night Sweats EENT: reports: No Symptoms Reported Respiratory: reports: No Symptoms reported Cardiac: reports: No Symptoms Reported GI: reports: No Symptoms Reported : reports: No Symptoms Reported Musculoskeletal: reports: Back Pain, Muscle Pain Integumentary: reports: Change in Hair/Nails Neuro: reports: Headache Endocrine: reports: No Symptoms Reported Hematology: reports: No Symptoms Reported Psychiatric: reports: Judgement Intact, Agitated, Anxious Other Systems: Reviewed and Negative Patient History - Patient Medical History Hx Anemia: No Hx Asthma: No Hx Chronic Obstructive Pulmonary Disease (COPD): No Hx Cancer: Yes (hogkins lymphoma in remission) Hx Cardiac Disorders: No Hx Congestive Heart Failure: No Hx Hypertension: Yes (non compliant with treatment) Hx Hypercholesterolemia: No Hx Pacemaker: No HX Cerebrovascular Accident: No Hx Seizures: No Hx Dementia: No Hx Diabetes: No Hx Gastrointestinal Disorders: No Hx Liver Disease: No Hx Genitourinary Disorders: No Hx Sexually Transmitted Disorders: No Hx Renal Disease (ESRD): No Hx Thyroid Disease: No Hx Human Immunodeficiency Virus (HIV): No Hx Hepatitis C: Yes (not treated) Hx Depression: Yes Hx Suicide Attempt: No Hx Bipolar Disorder: Yes Hx Schizophrenia: No - Patient Surgical History Past Surgical History: Yes Hx Neurologic Surgery: No Hx Cataract Extraction: No Hx Cardiac Surgery: No Hx Lung Surgery: No Hx Breast Surgery: No Hx Breast Biopsy: No Hx Abdominal Surgery: No Hx Appendectomy: No Hx Cholecystectomy: No Hx Genitourinary Surgery: No Hx Section: No Hx Orthopedic Surgery: No Other Surgical History: cleft palate repair as a child Anesthesia Reaction: No - PPD History Date: 07/25/18 Results: 0 mm - Smoking Cessation Smoking history: Current every day smoker Have you smoked in the past 12 months: Yes Aproximately how many cigarettes per day: 5 Cigars Per Day: 0 Hx Chewing Tobacco Use: No Initiated information on smoking cessation: Yes 'Breaking Loose' booklet given: 06/28/19 - Substances abused Alcohol Substance route: Oral Frequency: 3-6 times per week Amount used: 1 beer Age of first use: 17 Date of last use: 06/27/19 Heroin Substance route: Injection Frequency: Daily Amount used: 7 BAGS Age of first use: 17 Date of last use: 06/27/19 Cocaine Substance route: Injection Frequency: Daily Amount used: 5 BAGS Age of first use: 17 Date of last use: 06/27/19 Admission Physical Exam BHS - Vital Signs Vital Signs: Vital Signs - 24 hr 06/28/19 12:04 Temperature 99.4 F Pulse Rate 75 Respiratory 16 Rate Blood Pressure 175/100 H - Physical General Appearance: Yes: Disheveled, Mild Distress, Alcohol on Breath, Tremorous , Irritable, Sweating HEENTM: Yes: EOMI, Hearing grossly Normal, Normal ENT Inspection, Normocephalic , Normal Voice, KELLEE, Pharynx Normal, Tm's normal Respiratory: Yes: Chest Non-Tender, Lungs Clear, Normal Breath Sounds, No Respiratory Distress, No Accessory Muscle Use Neck: Yes: No masses,lesions,Nodules, Supple, Trachea in good position Breast: Yes: Within Normal Limits Cardiology: Yes: Regular Rhythm, S1, S2, Tachycardia Abdominal: Yes: Non Tender, Flat, Soft, Increased Bowel Sounds Genitourinary: Yes: Within Normal Limits Back: Yes: Normal Inspection Musculoskeletal: Yes: full range of Motion, Gait Steady, Pelvis Stable Extremities: Yes: Normal Capillary Refill, Normal Inspection, Normal Range of Motion, Non-Tender Neurological: Yes: veterinary medicine doctor II-XII NML intact, Fully Oriented, Alert, Motor Strength 5/5, Normal Mood/Affect, Normal Response Integumentary: Yes: Normal Color, Warm Lymphatic: Yes: Within Normal Limits - Diagnostic (1) Cognitive dysfunction in bipolar disorder Current Visit: Yes Status: Acute (2) Essential hypertension Current Visit: Yes Status: Acute (3) Nicotine dependence Current Visit: Yes Status: Acute Qualifiers: Nicotine product type: cigarettes Substance use status: uncomplicated Qualified Code(s): F17.210 - Nicotine dependence, cigarettes, uncomplicated (4) Opioid dependence with withdrawal Current Visit: Yes Status: Acute (5) Asthma Current Visit: Yes Status: Chronic Qualifiers: Asthma severity: mild Asthma persistence: intermittent Asthma complication type: uncomplicated Qualified Code(s): J45.20 - Mild intermittent asthma, uncomplicated (6) Bipolar disorder Current Visit: Yes Status: Chronic Qualifiers: Active/Remission status: remission status unspecified Qualified Code(s): F31.9 - Bipolar disorder, unspecified (7) Cocaine dependence Current Visit: Yes Status: Chronic Qualifiers: Substance use status: uncomplicated Qualified Code(s): F14.20 - Cocaine dependence, uncomplicated (8) Depression Current Visit: Yes Status: Chronic (9) Hepatitis C Current Visit: Yes Status: Chronic Qualifiers: Viral hepatitis chronicity: chronic Hepatic coma status: without hepatic coma Qualified Code(s): B18.2 - Chronic viral hepatitis C Comment: untreated (10) History of corrected cleft lip and palate Current Visit: Yes Status: Chronic (11) Hodgkin lymphoma Current Visit: Yes Status: Chronic Qualifiers: Hodgkin lymphoma type: unspecified type (12) Substance induced mood disorder Current Visit: Yes Status: Chronic Cleared for Admission S - Detox or Rehab [facility] Level of Care: Medically Managed Detox Regimen/Protocol: Methadone/Librium Screened but not Admitted - Documentation of Visit Screened but not Admitted: No Breathalyzer - Breathalyzer Breathalyzer: 0 Urine Drug Screen - Test Device Lot number: [id number] Expiration date: 02/08/21 - Control Is test valid?: Yes - Results Drug screen NEGATIVE: No Urine drug screen results: ERICA-Cocaine, FEN-Fentanyl, MOP-Opiates, BZO- Benzodiazepines Inpatient Rehab Admission - Rehab Decision to Admit Inpatient rehab admission?: No
[2019-06-28] MEDS ORDERED: chlordiazePOXIDE HCL 25 MG CAPSULE PO PRN (14:11)
[2019-06-28] MEDS ORDERED: MENTHOL/PHENOL 1 EACH UD MM PRN (14:11)
[2019-06-28] MEDS ORDERED: IBUPROFEN 400 MG TABLET (FP) PO PRN (14:11)
[2019-06-28] MEDS ORDERED: MELATONIN 5 MG TABLETS PO PRN (14:11)
[2019-06-28] MEDS ORDERED: METHOCARBAMOL 500 MG TABLET PO PRN (14:11)
[2019-06-28] MEDS ORDERED: BISMUTH SUBSALICYLATE 262 MG/15 ML BTL PO PRN (14:11)
[2019-06-28] MEDS ORDERED: MAGNESIUM HYDROX 2400MG/30ML ORAL SUSPENSION 30 ML CUP PO PRN (14:11)
[2019-06-28] MEDS ORDERED: MAG HYDROX/AL HYDROX/SIMETH 30 ML UNIT-DOSE CUP PO PRN (14:11)
[2019-06-28] MEDS ORDERED: MAGNESIUM CITRATE 300 ML BOTTLE PO PRN (14:11)
[2019-06-28] MEDS ORDERED: ACETAMINOPHEN 325 MG TABLET (FP) PO PRN ×2 (14:11)
[2019-06-28] MEDS ORDERED: hydrOXYzine PAMOATE 25 MG CAPSULE (FP) PO PRN (14:11)
[2019-06-28] MEDS ORDERED: METHADONE HCL 10 MG TABLET (FOR DETOX USE ONLY) PO ONE (14:55)
[2019-06-28] MEDS: cloNIDine HCL 0.1 MG TABLET PO PRN ×2 (15:30→23:35)
[2019-06-28] MEDS: chlordiazePOXIDE HCL 25 MG CAPSULE PO SCH ×2 (17:48→22:25)
[2019-06-28] MEDS: THIAMINE HCL 100 MG TABLET (FP) PO SCH (22:25)
[2019-06-29] MEDS: cloNIDine HCL 0.1 MG TABLET PO PRN ×4 (06:01→22:25)
[2019-06-29] MEDS: chlordiazePOXIDE HCL 25 MG CAPSULE PO SCH ×4 (06:21→23:18)
[2019-06-29] MEDS ORDERED: METHADONE HCL 5 MG TABLET (FOR DETOX USE ONLY) ONE (09:38)
[2019-06-29] MEDS ORDERED: METHADONE HCL 10 MG TABLET (FOR DETOX USE ONLY) ONE (09:40)
[2019-06-29 09:47] LABS: HEMATOCRIT 30.9 % (35.4-49); HEMOGLOBIN 9.8 GM/dL (11.7-16.9); MCH 24.6 pg (25.7-33.7); MCHC 31.7 g/dl (32.0-35.9); MEAN CELL VOLUME 77.7 fl (80-96); MEAN PLT VOLUME 10.2 fl (7.5-11.1); PLATELET COUNT 148 K/MM3 (134-434); RBC 3.97 M/mm3 (4.00-5.60); RDW 17.3 % (11.9-15.9); WHITE BLOOD COUNT 3.7 K/mm3 (4.0-10.0)
[2019-06-29] MEDS ORDERED: METHADONE (DETOX) 20 MG, METHADONE (DETOX) 5 MG PO ONE (10:00)
[2019-06-29] MEDS: PRENATAL VITAMINS W/ FOLIC ACID TABLET (FP) PO SCH (10:11)
[2019-06-29 10:16] LABS: ALBUMIN 3.3 g/dl (3.4-5.0); BILIRUBIN,TOTAL 0.4 mg/dL (0.2-1); CREATININE 1.2 mg/dL (0.55-1.3); POTASSIUM 3.9 mmol/L (3.5-5.1); TOT PROT 7.2 g/dl (6.4-8.2)
--- NOTE | 2019-06-29 11:05 | PN ---
S CIWA - CIWA Score Nausea/Vomitin-Mild Nausea/No Vomiting Muscle Tremors: 2 Anxiety: 3 Agitation: 3 Paroxysmal Sweats: No Perspiration Orientation: 0-Oriented Tacttile Disturbances: 1-Very Mild Itch/Numbness Auditory Disturbances: 0-None Visual Disturbances: 0-None Headache: 2-Mild CIWA-Ar Total Score: 12 BHS COWS - Scale Resting Pulse: 0= [place] 80 or Below Sweatin= No chills or Flushing Restless Observation: 1= Difficult to Sit Still Pupil Size: 1= Pupils >than Normal Bone or Joint Aches: 1= Mild Discomfort Runny Nose/ Eye Tearin= Nasal Congestion GI Upset > 30mins: 1= Stomach Cramp Tremor Observation of Outstretched Hands: 2= Slight Tremor Visible Yawning Observation: 1= 1-2x During Session Anxiety or Irritability: 2=Irritable/Anxious Goose Flesh Skin: 0=Smooth Skin COWS Score: 10 S Progress Note (SOAP) Subjective: alert,irritable,anxious,interrupted sleep,pain in the body and back Objective: 06/29/19 11:03 Vital Signs Temperature 97.7 F 06/29/19 09:44 Pulse Rate 71 06/29/19 09:44 Respiratory Rate 18 06/29/19 09:44 Blood Pressure 136/106 H 06/29/19 09:44 O2 Sat by Pulse Oximetry (%) Laboratory Last Values WBC 3.7 K/mm3 (4.0-10.0) L 06/29/19 08:00 RBC 3.97 M/mm3 (4.00-5.60) L 06/29/19 08:00 Hgb 9.8 GM/dL (11.7-16.9) L 06/29/19 08:00 Hct 30.9 % (35.4-49) L 06/29/19 08:00 MCV 77.7 fl (80-96) L 06/29/19 08:00 MCH 24.6 pg (25.7-33.7) L D 06/29/19 08:00 MCHC 31.7 g/dl (32.0-35.9) L 06/29/19 08:00 RDW 17.3 % (11.9-15.9) H 06/29/19 08:00 Plt Count 148 K/MM3 (134-434) D 06/29/19 08:00 MPV 10.2 fl (7.5-11.1) 06/29/19 08:00 Sodium 138 mmol/L (136-145) 06/29/19 08:00 Potassium 3.9 mmol/L (3.5-5.1) 06/29/19 08:00 Chloride 104 mmol/L (98-107) 06/29/19 08:00 Carbon Dioxide 28 mmol/L (21-32) 06/29/19 08:00 Anion Gap 7 MMOL/L (8-16) L 06/29/19 08:00 BUN 21.0 mg/dL (7-18) H 06/29/19 08:00 Creatinine 1.2 mg/dL (0.55-1.3) 06/29/19 08:00 Est GFR (CKD-EPI)AfAm 80.66 06/29/19 08:00 Est GFR (CKD-EPI)NonAf 69.59 06/29/19 08:00 Random Glucose 106 mg/dL (74-106) 06/29/19 08:00 Calcium 9.0 mg/dL (8.5-10.1) 06/29/19 08:00 Total Bilirubin 0.4 mg/dL (0.2-1) 06/29/19 08:00 AST 27 U/L (15-37) 06/29/19 08:00 ALT 24 U/L (13-61) 06/29/19 08:00 Alkaline Phosphatase 108 U/L (45-117) 06/29/19 08:00 Total Protein 7.2 g/dl (6.4-8.2) 06/29/19 08:00 Albumin 3.3 g/dl (3.4-5.0) L 06/29/19 08:00 06/29/19 11:04 rpr pending Assessment: 06/29/19 11:04 withdrawal symptom Plan: continue detox methadone and librium regimen,encourage oral fluiid
[2019-06-29] MEDS: THIAMINE HCL 100 MG TABLET (FP) PO SCH (23:18)
[2019-06-30] MEDS: chlordiazePOXIDE HCL 25 MG CAPSULE PO SCH ×4 (06:32→23:00)
[2019-06-30] MEDS: cloNIDine HCL 0.1 MG TABLET PO PRN ×3 (06:33→20:13)
[2019-06-30] MEDS: PRENATAL VITAMINS W/ FOLIC ACID TABLET (FP) PO SCH (09:32)
[2019-06-30] MEDS ORDERED: METHADONE HCL 10 MG TABLET (FOR DETOX USE ONLY) PO ONE (10:00)
--- NOTE | 2019-06-30 13:57 | PN ---
[facility] CIWA - CIWA Score Nausea/Vomitin-No Nausea/No Vomiting Muscle Tremors: 1-None Visible, but [place] Anxiety: 3 Agitation: 3 Paroxysmal Sweats: 2 Orientation: 0-Oriented Tacttile Disturbances: 1-Very Mild Itch/Numbness Auditory Disturbances: 0-None Visual Disturbances: 0-None Headache: 0-None Present CIWA-Ar Total Score: 10 BHS COWS - Scale Resting Pulse: 0= [place] 80 or Below Sweatin= Chills/Flushing Restless Observation: 1= Difficult to Sit Still Pupil Size: 0= Normal to Room Light Bone or Joint Aches: 1= Mild Discomfort Runny Nose/ Eye Tearin= Runny Nose/Eyes GI Upset > 30mins: 0= None Tremor Observation of Outstretched Hands: 1= Tremor [place], Not Seen Yawning Observation: 1= 1-2x During Session Anxiety or Irritability: 2=Irritable/Anxious Goose Flesh Skin: 0=Smooth Skin COWS Score: 9 [facility] Progress Note (SOAP) Subjective: C/O OF FEELING ANXIOUS, INTERRUPTED SLEEP, BODY ACHES Objective: 06/30/19 13:54 Vital Signs Temperature 98.2 F 06/30/19 09:42 Pulse Rate 65 06/30/19 09:42 Respiratory Rate 18 06/30/19 09:42 Blood Pressure 167/93 06/30/19 09:42 O2 Sat by Pulse Oximetry (%) Laboratory Last Values WBC 3.7 K/mm3 (4.0-10.0) L 06/29/19 08:00 RBC 3.97 M/mm3 (4.00-5.60) L 06/29/19 08:00 Hgb 9.8 GM/dL (11.7-16.9) L 06/29/19 08:00 Hct 30.9 % (35.4-49) L 06/29/19 08:00 MCV 77.7 fl (80-96) L 06/29/19 08:00 MCH 24.6 pg (25.7-33.7) L D 06/29/19 08:00 MCHC 31.7 g/dl (32.0-35.9) L 06/29/19 08:00 RDW 17.3 % (11.9-15.9) H 06/29/19 08:00 Plt Count 148 K/MM3 (134-434) D 06/29/19 08:00 MPV 10.2 fl (7.5-11.1) 06/29/19 08:00 Sodium 138 mmol/L (136-145) 06/29/19 08:00 Potassium 3.9 mmol/L (3.5-5.1) 06/29/19 08:00 Chloride 104 mmol/L (98-107) 06/29/19 08:00 Carbon Dioxide 28 mmol/L (21-32) 06/29/19 08:00 Anion Gap 7 MMOL/L (8-16) L 06/29/19 08:00 BUN 21.0 mg/dL (7-18) H 06/29/19 08:00 Creatinine 1.2 mg/dL (0.55-1.3) 06/29/19 08:00 Est GFR (CKD-EPI)AfAm 80.66 06/29/19 08:00 Est GFR (CKD-EPI)NonAf 69.59 06/29/19 08:00 Random Glucose 106 mg/dL (74-106) 06/29/19 08:00 Calcium 9.0 mg/dL (8.5-10.1) 06/29/19 08:00 Total Bilirubin 0.4 mg/dL (0.2-1) 06/29/19 08:00 AST 27 U/L (15-37) 06/29/19 08:00 ALT 24 U/L (13-61) 06/29/19 08:00 Alkaline Phosphatase 108 U/L (45-117) 06/29/19 08:00 Total Protein 7.2 g/dl (6.4-8.2) 06/29/19 08:00 Albumin 3.3 g/dl (3.4-5.0) L 06/29/19 08:00 RPR Titer Nonreactive (NONREACTIVE) 06/29/19 08:00 REPEAT CBC Assessment: 06/30/19 13:55 AOX3 NO ACUTE DISTRESS, IRRITABLE NO ADVENTITIOUS BREATH SOUNDS FULL ROM NO GAIT DISTURBANCE WITHDRAWAL SX ABNORMAL LABS: ANEMIA SECONDARY Plan: INCREASE PO FLUIDS REPEAT CBC CONTINUE TO MONITOR CONTINUE DETOX
[2019-06-30] MEDS ORDERED: amLODIPine BESYLATE 10 MG TABLET (FP) PO ONE (15:00)
[2019-06-30] MEDS: THIAMINE HCL 100 MG TABLET (FP) PO SCH (23:00)
[2019-07-01] MEDS ORDERED: chlordiazePOXIDE HCL 10 MG CAPSULE PO PRN
[2019-07-01] MEDS: chlordiazePOXIDE HCL 10 MG CAPSULE PO SCH ×4 (05:31→22:56)
[2019-07-01] MEDS ORDERED: METHADONE HCL 10 MG TABLET (FOR DETOX USE ONLY) ONE (09:48)
[2019-07-01] MEDS ORDERED: METHADONE HCL 5 MG TABLET (FOR DETOX USE ONLY) ONE (09:48)
[2019-07-01] MEDS ORDERED: METHADONE (DETOX) 10 MG, METHADONE (DETOX) 5 MG PO ONE (10:00)
[2019-07-01] MEDS: amLODIPine BESYLATE 10 MG TABLET (FP) PO SCH (10:22)
[2019-07-01] MEDS: PRENATAL VITAMINS W/ FOLIC ACID TABLET (FP) PO SCH (10:22)
--- NOTE | 2019-07-01 12:22 | PN ---
[facility] CIWA - CIWA Score Nausea/Vomitin-Mild Nausea/No Vomiting Muscle Tremors: 3 Anxiety: 2 Agitation: 2 Paroxysmal Sweats: 2 Orientation: 0-Oriented Tacttile Disturbances: 0-None Auditory Disturbances: 0-None Visual Disturbances: 0-None Headache: 0-None Present CIWA-Ar Total Score: 10 BHS COWS - Scale Resting Pulse: 1= [place] 81-100 Sweatin= Chills/Flushing Restless Observation: 1= Difficult to Sit Still Pupil Size: 1= Pupils >than Normal Bone or Joint Aches: 1= Mild Discomfort Runny Nose/ Eye Tearin= Nasal Congestion GI Upset > 30mins: 1= Stomach Cramp Tremor Observation of Outstretched Hands: 1= Tremor [place], Not Seen Yawning Observation: 1= 1-2x During Session Anxiety or Irritability: 1=Feels Anxious/Irritable Goose Flesh Skin: 0=Smooth Skin COWS Score: 10 S Progress Note (SOAP) Objective: 07/01/19 12:19 No complaints today O: Vital Signs - 24 hr 06/30/19 06/30/19 07/01/19 18:38 20:52 00:30 Temperature 98.9 F 98.8 F Pulse Rate 70 70 Respiratory 17 16 18 Rate Blood Pressure 163/99 171/95 H 07/01/19 07/01/19 07/01/19 03:30 07:06 09:44 Temperature 98.2 F 98.2 F Pulse Rate 58 L 88 Respiratory 18 18 18 Rate Blood Pressure 178/100 H 119/80 Laboratory Tests 06/29/19 06/29/19 06/29/19 08:00 08:00 08:00 WBC 3.7 L RBC 3.97 L Hgb 9.8 L Hct 30.9 L MCV 77.7 L MCH 24.6 L D MCHC 31.7 L RDW 17.3 H Plt Count 148 D MPV 10.2 Sodium 138 Potassium 3.9 Chloride 104 Carbon Dioxide 28 Anion Gap 7 L BUN 21.0 H Creatinine 1.2 Est GFR (CKD-EPI)AfAm 80.66 Est GFR (CKD-EPI)NonAf 69.59 Random Glucose 106 Calcium 9.0 Total Bilirubin 0.4 AST 27 ALT 24 Alkaline Phosphatase 108 Total Protein 7.2 Albumin 3.3 L RPR Titer Nonreactive anemia: Hct 31 with low MCV and high RDW a/p: Dual detox- continue detox protocols HTN- pt usually does not take meds Anemia- unclear etiology
[2019-07-01] MEDS: THIAMINE HCL 100 MG TABLET (FP) PO SCH (22:57)
[2019-07-02] MEDS ORDERED: chlordiazePOXIDE HCL 10 MG CAPSULE PO SCH (05:00)
[2019-07-02 09:58] VITALS: BP 191/102; PULSE 78; TEMP 97
[2019-07-02] MEDS ORDERED: METHADONE HCL 10 MG TABLET (FOR DETOX USE ONLY) PO ONE (10:00)
[2019-07-02] MEDS: amLODIPine BESYLATE 10 MG TABLET (FP) PO SCH (11:27)
[2019-07-02] MEDS: PRENATAL VITAMINS W/ FOLIC ACID TABLET (FP) PO SCH (11:27)
--- NOTE | 2019-07-02 14:27 | DS ---
[facility] Detox Discharge Summary Admission Date: 06/28/19 Discharge Date: 07/02/19 (Left AMA) - History Present History: Alcohol Dependence, Cocaine Dependence, Opioid Dependence Additional Comments: Pt left AMA. Pt did not complete the detox protocol. Pt states, "i have things to take care of". An attempt to let pt stay and complete the detox protocol failed. Pt's BP is 191/102, HR 78, Pt refused to take any blood pressure medication. Denies any headache, chest pain, sob, dizziness, or N/V. Pt is encouraged to follow-up with an outpatient CD program and also to follow-up with his pmd for BP control. Pt is also encouraged to go the any urgent care or the ER for evaluation of elevated BP. Importance of having his BP under control explained to pt but was adamant about the information given. Pt is alert and oriented x3 and in no acute respiratory distress. Pertinent Past History: h/o htn, cocaine, heroin, and alcohol use disorder. - Physical Exam Results Vital Signs: Vital Signs Temperature 97 F L 07/02/19 09:57 Pulse Rate 78 07/02/19 09:57 Respiratory Rate 16 07/02/19 09:57 Blood Pressure 191/102 H 07/02/19 09:57 O2 Sat by Pulse Oximetry (%) Vital Signs 07/02/19 09:57 Temperature 97 F L Pulse Rate 78 Respiratory 16 Rate Blood Pressure 191/102 H Laboratory Last Values WBC 3.7 K/mm3 (4.0-10.0) L 06/29/19 08:00 RBC 3.97 M/mm3 (4.00-5.60) L 06/29/19 08:00 Hgb 9.8 GM/dL (11.7-16.9) L 06/29/19 08:00 Hct 30.9 % (35.4-49) L 06/29/19 08:00 MCV 77.7 fl (80-96) L 06/29/19 08:00 MCH 24.6 pg (25.7-33.7) L D 06/29/19 08:00 MCHC 31.7 g/dl (32.0-35.9) L 06/29/19 08:00 RDW 17.3 % (11.9-15.9) H 06/29/19 08:00 Plt Count 148 K/MM3 (134-434) D 06/29/19 08:00 MPV 10.2 fl (7.5-11.1) 06/29/19 08:00 Sodium 138 mmol/L (136-145) 06/29/19 08:00 Potassium 3.9 mmol/L (3.5-5.1) 06/29/19 08:00 Chloride 104 mmol/L (98-107) 06/29/19 08:00 Carbon Dioxide 28 mmol/L (21-32) 06/29/19 08:00 Anion Gap 7 MMOL/L (8-16) L 06/29/19 08:00 BUN 21.0 mg/dL (7-18) H 06/29/19 08:00 Creatinine 1.2 mg/dL (0.55-1.3) 06/29/19 08:00 Est GFR (CKD-EPI)AfAm 80.66 06/29/19 08:00 Est GFR (CKD-EPI)NonAf 69.59 06/29/19 08:00 Random Glucose 106 mg/dL (74-106) 06/29/19 08:00 Calcium 9.0 mg/dL (8.5-10.1) 06/29/19 08:00 Total Bilirubin 0.4 mg/dL (0.2-1) 06/29/19 08:00 AST 27 U/L (15-37) 06/29/19 08:00 ALT 24 U/L (13-61) 06/29/19 08:00 Alkaline Phosphatase 108 U/L (45-117) 06/29/19 08:00 Total Protein 7.2 g/dl (6.4-8.2) 06/29/19 08:00 Albumin 3.3 g/dl (3.4-5.0) L 06/29/19 08:00 RPR Titer Nonreactive (NONREACTIVE) 06/29/19 08:00 Labs noted. Pertinent Admission Physical Exam Findings: withdrawal symptoms. - Treatment Hospital Course: Detox Protocol Followed - Diagnosis (1) Essential hypertension Status: Acute (2) Nicotine dependence Status: Acute Qualifiers: Nicotine product type: cigarettes Substance use status: uncomplicated Qualified Code(s): F17.210 - Nicotine dependence, cigarettes, uncomplicated (3) Opioid dependence with withdrawal Status: Acute (4) Asthma Status: Chronic Qualifiers: Asthma severity: mild Asthma persistence: intermittent Asthma complication type: uncomplicated Qualified Code(s): J45.20 - Mild intermittent asthma, uncomplicated (5) Cocaine dependence Status: Chronic Qualifiers: Substance use status: uncomplicated Qualified Code(s): F14.20 - Cocaine dependence, uncomplicated (6) Hepatitis C Status: Chronic Qualifiers: Viral hepatitis chronicity: chronic Hepatic coma status: without hepatic coma Qualified Code(s): B18.2 - Chronic viral hepatitis C (7) Hodgkin lymphoma Status: Chronic Qualifiers: Hodgkin lymphoma type: unspecified type - AMA Did Patient Leave Against Medical Advice: Yes
[2019-07-03] MEDS ORDERED: chlordiazePOXIDE HCL 10 MG CAPSULE PO ONE (05:00)
[2019-07-03] MEDS ORDERED: METHADONE HCL 5 MG TABLET (FOR DETOX USE ONLY) PO ONE (06:00)
== END 2019-07-02 10:01 | disposition left against medical advice (07) | DRG 770 ==
LOC: YASAS 11:39 → Y6N 14:29
PROVIDERS: ADMIT Allergy & Immunology; ATTEND Allergy & Immunology
PROC: HZ2ZZZZ Detoxification Services for Substance Abuse Treatment (ICD-10-PCS; principal; 2019-06-28)
DX: F11.23 Opioid dependence with withdrawal (principal); F14.20 Cocaine dependence, uncomplicated; F17.210 Nicotine dependence, cigarettes, uncomplicated; F31.9 Bipolar disorder, unspecified; F19.24 Other psychoactive substance dependence with psychoactive substance-induced mood disorder; I10 Essential (primary) hypertension; J45.20 Mild intermittent asthma, uncomplicated; B18.2 Chronic viral hepatitis C; C81.90 Hodgkin lymphoma, unspecified, unspecified site; D64.9 Anemia, unspecified; R00.0 Tachycardia, unspecified; G31.84 Mild cognitive impairment of uncertain or unknown etiology; Z91.14 Patient's other noncompliance with medication regimen; Z59.0 Homelessness
CPT/HCPCS: 36415; 80053; 85027; 86593; J0735